=== PATIENT | male | born 1940 | race Caucasian/White ===

== ENCOUNTER 2016-08-29 09:46 | Outpatient (CLI) | payer MEDICARE, OTHER ==
[2016-08-29 18:58] LABS: EOSINOPHILS # (AUTO) 0.3 10^3/uL (0.0-0.7); EOSINOPHILS % (AUTO) 6.2 %; HGB - HEMOGLOBIN 13.4 g/dL (14.0-18.0); LYMPHOCYTES # (AUTO) 0.9 10^3/uL (1.5-3.5); MEAN CORPUSCULAR HEMOGLOBIN 33.1 pg (27.0-31.0); MEAN CORPUSCULAR HGB CONC 32.8 g/dL (32.0-36.0); MEAN CORPUSCULAR VOLUME 100.9 fL (80.0-94.0); MEAN PLATELET VOLUME 7.8 fL (7.4-11.4); MONOCYTES # (AUTO) 0.4 10^3/uL (0.0-1.0); MONOCYTES % (AUTO) 8.5 %; NEUTROPHILS # (AUTO) 2.9 10^3/uL (1.5-6.6); NEUTROPHILS % (AUTO) 64.3 %; NUCLEATED RED BLOOD CELLS AUTO 0.1 /100WBC; RED BLOOD COUNT 4.06 10^6/uL (4.70-6.10); RED CELL DISTRIBUTION WIDTH 14.4 % (12.0-15.0); UNCORRECTED WHITE BLOOD COUNT 4.6 x10^3/uL; WHITE BLOOD COUNT 4.6 x10^3/uL (4.8-10.8)
[2016-08-29 19:39] LABS: BILIRUBIN,TOTAL 0.7 mg/dL (0.2-1.0); BUN - BLOOD UREA NITROGEN 14 mg/dL (6-20); CALCIUM 9.6 mg/dL (8.5-10.3); CARBON DIOXIDE - CO2 30 mmol/L (21-32); CHLORIDE 95 mmol/L (101-111); CHOL/HDL RATIO 2.3 (<5.0); CHOLESTEROL 198 mg/dL; GFR - MDRD 73 (>89); GLUCOSE 88 mg/dL (70-100); HDL CHOLESTEROL 85 mg/dL; LDL/HDL RATIO 1.2 (<3.6); POTASSIUM 5.1 mmol/L (3.5-5.0); SODIUM 133 mmol/L (135-145); TOTAL PROTEIN 6.2 g/dL (6.7-8.2); TRIGLYCERIDES 58 mg/dL; VLDL CHOLESTEROL 12 mg/dL
== END 2016-08-29 09:47 | disposition home or self-care (01) ==
LOC: LAB.F 09:46
PROVIDERS: ATTEND Physician Assistant Medical
DX: K21.9 Gastro-esophageal reflux disease without esophagitis (principal); D50.9 Iron deficiency anemia, unspecified; N28.9 Disorder of kidney and ureter, unspecified; E78.5 Hyperlipidemia, unspecified; I10 Essential (primary) hypertension; N40.0 Benign prostatic hyperplasia without lower urinary tract symptoms
CPT/HCPCS: 36415; 80053; 80061; 84443; 85025

== ENCOUNTER 2016-09-01 13:05 | Outpatient (CLI) | payer MEDICARE, OTHER | END 2016-09-01 13:06 | disposition home or self-care (01) | DX: E87.5 Hyperkalemia (principal); E03.9 Hypothyroidism, unspecified; E87.1 Hypo-osmolality and hyponatremia ==

== ENCOUNTER 2016-10-04 10:30 | Outpatient (CLI) | payer MEDICARE, OTHER | END 2016-10-04 10:31 | disposition home or self-care (01) | DX: E03.9 Hypothyroidism, unspecified (principal) ==

== ENCOUNTER 2016-12-05 10:01 | Outpatient (CLI) | payer MEDICARE, OTHER | END 2016-12-05 10:02 | disposition home or self-care (01) | DX: E87.1 Hypo-osmolality and hyponatremia (principal); D64.9 Anemia, unspecified ==

== ENCOUNTER 2017-02-07 10:50 | Outpatient (CLI) | payer MEDICARE, OTHER ==
[2017-02-07 19:01] LABS: BASOPHILS # (AUTO) 0.1 10^3/uL (0.0-0.1); BASOPHILS % (AUTO) 0.6 %; EOSINOPHILS # (AUTO) 0.3 10^3/uL (0.0-0.7); HCT - HEMATOCRIT 41.2 % (42.0-52.0); HGB - HEMOGLOBIN 13.2 g/dL (14.0-18.0); LYMPHOCYTES # (AUTO) 0.9 10^3/uL (1.5-3.5); LYMPHOCYTES % (AUTO) 10.1 %; MEAN CORPUSCULAR HEMOGLOBIN 32.3 pg (27.0-31.0); MEAN CORPUSCULAR HGB CONC 32.1 g/dL (32.0-36.0); MEAN CORPUSCULAR VOLUME 100.6 fL (80.0-94.0); MEAN PLATELET VOLUME 7.9 fL (7.4-11.4); MONOCYTES # (AUTO) 0.9 10^3/uL (0.0-1.0); MONOCYTES % (AUTO) 9.8 %; NEUTROPHILS # (AUTO) 6.8 10^3/uL (1.5-6.6); NEUTROPHILS % (AUTO) 76.5 %; RED BLOOD COUNT 4.09 10^6/uL (4.70-6.10); UNCORRECTED WHITE BLOOD COUNT 8.9 x10^3/uL; WHITE BLOOD COUNT 8.9 x10^3/uL (4.8-10.8)
[2017-02-07 19:16] LABS: CALCIUM 9.2 mg/dL (8.5-10.3); POTASSIUM 4.1 mmol/L (3.5-5.0)
== END 2017-02-07 10:51 | disposition home or self-care (01) ==
LOC: LAB.F 10:50
PROVIDERS: ATTEND Internal Medicine
DX: E87.1 Hypo-osmolality and hyponatremia (principal); D64.9 Anemia, unspecified
CPT/HCPCS: 36415; 80048; 85025

== ENCOUNTER 2017-04-07 13:28 | Emergency (ER) | payer MEDICARE, OTHER ==
[2017-04-07 13:54] VITALS: BP 147/71
--- NOTE | 2017-04-07 15:55 | ED Physician Documentation ---
History of Present Illness - Stated complaint Stated Complaint: LT EAR PX/SWOLLEN - Chief complaint Chief Complaint: Heent - Additonal information Additional information: hx from pt 77 male L ear canal swelling for several days no fever some nasal congestion for which he is taking flonase Review of Systems Constitutional: denies: Fever Ears: reports: Ear pain Nose: reports: Congestion PD PAST MEDICAL HISTORY - Past Medical History Past Medical History: Yes Cardiovascular: Hypertension, High cholesterol Respiratory: Sleep apnea Endocrine/Autoimmune: HyPOthyroidism GI: GERD : Benign prostate hypertrophy HEENT: Chronic hearing loss Psych: None Musculoskeletal: Osteoarthritis Derm: None - Past Surgical History Past Surgical History: Yes General: Colonoscopy Ortho: Rotator cuff repair - Present Medications Home Medications: Ambulatory Orders Medication Instructions Recorded Confirmed Levothyroxine [Synthroid] 2 tab PO QDAC 01/24/13 04/07/17 Tamsulosin [Flomax] 1 tab PO DAILY 01/24/13 04/07/17 Aspirin Chewable [St Jayesh 175 mcg ORAL DAILY 05/28/13 04/07/17 Aspirin] Acetaminophen [Tylenol] 3 tab PO DAILY PM 04/07/17 04/07/17 Atorvastatin Calcium 20 mg PO DAILY 04/07/17 04/07/17 Fluticasone Propionate [Flovent 1 spray NS DAILY 04/07/17 04/07/17 Diskus] Neomycin/Polymyx/Hc Otic Drops 4 drops OT Q6H #1 bottle 04/07/17 [Cortisporin Ear Susp] raNITIdine [Zantac] 150 mg PO DAILY 04/07/17 04/07/17 - Allergies Allergies/Adverse Reactions: Allergies Allergy/AdvReac Type Severity Reaction Status Date / Time No Known Drug Allergies Allergy Verified 04/07/17 14:58 - Social History Does the pt smoke?: No Smoking Status: Never smoker Does the pt drink ETOH?: No Does the pt have substance abuse?: No - Immunizations Immunizations are current?: Yes - POLST Patient has POLST: No PD ED PE NORMAL - Vitals Vital signs reviewed: Yes - HEENT HEENT: Other (nasal congestion). No: Ears normal (L AOE, visible portion of TM is padilla and quiet, no mastoid TTP) - Cardiac Cardiac: RRR - Respiratory Respiratory: No respiratory distress, Clear bilaterally Results - Vitals Vitals: Vital Signs - 24 hr 04/07/17 13:51 Temperature 36.6 C Heart Rate 65 Respiratory 16 Rate Blood Pressure 147/71 H O2 Saturation 99 Oxygen O2 Source Room air Departure - Departure Disposition: 01 Home, Self Care Clinical Impression: Otitis externa Qualifiers: Otitis externa type: unspecified type Chronicity: acute Laterality: left Qualified Code(s): H60.502 - Unspecified acute noninfective otitis externa, left ear Condition: Good Instructions: ED Otitis Externa Follow-Up: Mamadou Arias MD [Primary Care Provider] - Prescriptions: Neomycin/Polymyx/Hc Otic Drops [Cortisporin Ear Susp] 4 drops OT Q6H #1 bottle Comments: Please follow up with your PMD for a recheck next week. Please have your blood pressure rechecked at that time too - it was high today
== END 2017-04-07 15:55 | disposition home or self-care (01) ==
LOC: ED 13:28
DX: H60.392 Other infective otitis externa, left ear (principal); I10 Essential (primary) hypertension; E78.00 Pure hypercholesterolemia, unspecified; G47.30 Sleep apnea, unspecified; E03.9 Hypothyroidism, unspecified; K21.9 Gastro-esophageal reflux disease without esophagitis; N40.0 Benign prostatic hyperplasia without lower urinary tract symptoms; M19.90 Unspecified osteoarthritis, unspecified site; Z79.82 Long term (current) use of aspirin
CPT/HCPCS: 99283

== ENCOUNTER 2017-04-11 10:35 | Outpatient (CLI) | payer MEDICARE, OTHER ==
[2017-04-11 18:28] LABS: BASOPHILS # (AUTO) 0.1 10^3/uL (0.0-0.1); BASOPHILS % (AUTO) 1.3 %; EOSINOPHILS # (AUTO) 0.2 10^3/uL (0.0-0.7); EOSINOPHILS % (AUTO) 4.2 %; HCT - HEMATOCRIT 42.8 % (42.0-52.0); LYMPHOCYTES # (AUTO) 0.7 10^3/uL (1.5-3.5); LYMPHOCYTES % (AUTO) 15.9 %; MEAN CORPUSCULAR HEMOGLOBIN 32.5 pg (27.0-31.0); MEAN CORPUSCULAR HGB CONC 32.7 g/dL (32.0-36.0); MEAN CORPUSCULAR VOLUME 99.3 fL (80.0-94.0); MEAN PLATELET VOLUME 7.9 fL (7.4-11.4); MONOCYTES # (AUTO) 0.4 10^3/uL (0.0-1.0); MONOCYTES % (AUTO) 9.5 %; NEUTROPHILS # (AUTO) 3.3 10^3/uL (1.5-6.6); NEUTROPHILS % (AUTO) 69.1 %; RED BLOOD COUNT 4.31 10^6/uL (4.70-6.10); RED CELL DISTRIBUTION WIDTH 13.9 % (12.0-15.0); UNCORRECTED WHITE BLOOD COUNT 4.7 x10^3/uL; WHITE BLOOD COUNT 4.7 x10^3/uL (4.8-10.8)
[2017-04-11 18:40] LABS: CALCIUM 9.2 mg/dL (8.5-10.3); CREATININE 1.1 mg/dL (0.6-1.2); POTASSIUM 4.1 mmol/L (3.5-5.0)
== END 2017-04-11 10:36 | disposition home or self-care (01) ==
LOC: LAB.F 10:35
PROVIDERS: ATTEND Internal Medicine
DX: E87.1 Hypo-osmolality and hyponatremia (principal); E87.5 Hyperkalemia; D64.9 Anemia, unspecified
CPT/HCPCS: 36415; 80048; 85025

== ENCOUNTER 2017-06-07 12:44 | Outpatient (CLI) | payer MEDICARE, OTHER ==
[2017-06-07 17:30] LABS: BASOPHILS # (AUTO) 0.1 10^3/uL (0.0-0.1); BASOPHILS % (AUTO) 0.9 %; EOSINOPHILS # (AUTO) 0.3 10^3/uL (0.0-0.7); EOSINOPHILS % (AUTO) 4.7 %; HCT - HEMATOCRIT 41.7 % (42.0-52.0); HGB - HEMOGLOBIN 13.6 g/dL (14.0-18.0); LYMPHOCYTES # (AUTO) 1.1 10^3/uL (1.5-3.5); LYMPHOCYTES % (AUTO) 16.6 %; MEAN CORPUSCULAR HEMOGLOBIN 32.2 pg (27.0-31.0); MEAN CORPUSCULAR HGB CONC 32.6 g/dL (32.0-36.0); MEAN CORPUSCULAR VOLUME 98.6 fL (80.0-94.0); MEAN PLATELET VOLUME 7.6 fL (7.4-11.4); MONOCYTES # (AUTO) 0.6 10^3/uL (0.0-1.0); MONOCYTES % (AUTO) 8.7 %; NEUTROPHILS # (AUTO) 4.8 10^3/uL (1.5-6.6); NEUTROPHILS % (AUTO) 69.1 %; RED BLOOD COUNT 4.23 10^6/uL (4.70-6.10); RED CELL DISTRIBUTION WIDTH 13.9 % (12.0-15.0); UNCORRECTED WHITE BLOOD COUNT 6.9 x10^3/uL; WHITE BLOOD COUNT 6.9 x10^3/uL (4.8-10.8)
[2017-06-07 18:04] LABS: ALBUMIN/GLOBULIN RATIO 1.5 (1.0-2.2); BILIRUBIN,TOTAL 0.6 mg/dL (0.2-1.0); CALCIUM 9.2 mg/dL (8.5-10.3); CREATININE 0.9 mg/dL (0.6-1.2); POTASSIUM 4.4 mmol/L (3.5-5.0); TOTAL PROTEIN 6.7 g/dL (6.7-8.2)
== END 2017-06-07 12:45 | disposition home or self-care (01) ==
LOC: LAB.F 12:44
PROVIDERS: ATTEND Physician Assistant Medical
DX: E87.1 Hypo-osmolality and hyponatremia (principal); D64.9 Anemia, unspecified
CPT/HCPCS: 36415; 80053; 85025

== ENCOUNTER 2017-06-26 12:15 | Outpatient (CLI) | payer MEDICARE, OTHER ==
[2017-06-26 19:52] LABS: IRON 53 ug/dL (45-182); TOTAL IRON BINDING CAPACITY 298 ug/dL (250-450); TRANSFERRIN 213 mg/dL (180-329)
[2017-06-29 08:07] LABS: TEST RESULT REPORT
== END 2017-06-26 12:16 | disposition home or self-care (01) ==
LOC: LAB.F 12:15
PROVIDERS: ATTEND Physician Assistant Medical
DX: D64.9 Anemia, unspecified (principal)
CPT/HCPCS: 36415; 81599; 82607; 82728; 82746; 83021; 83540; 84466; 85014; 85018

== ENCOUNTER 2017-09-12 10:35 | Outpatient (CLI) | payer MEDICARE, OTHER ==
[2017-09-12 18:00] LABS: ALBUMIN 4.1 g/dL (3.2-5.5); ALBUMIN/GLOBULIN RATIO 1.6 (1.0-2.2); ALKALINE PHOSPHATASE 86 IU/L (42-121); ALT ALANINE AMINOTRANSFERASE 26 IU/L (10-60); AST ASPARTATE AMINOTRANSFERASE 23 IU/L (10-42); BILIRUBIN,TOTAL 0.9 mg/dL (0.2-1.0); BUN - BLOOD UREA NITROGEN 10 mg/dL (6-20); CALCIUM 9.2 mg/dL (8.5-10.3); CARBON DIOXIDE - CO2 29 mmol/L (21-32); CHLORIDE 97 mmol/L (101-111); CHOL/HDL RATIO 2.1 (<5.0); CHOLESTEROL 175 mg/dL; CREATININE 0.9 mg/dL (0.6-1.2); GFR - MDRD 82 (>89); GLUCOSE 89 mg/dL (70-100); HDL CHOLESTEROL 83 mg/dL; LDL CHOLESTEROL,CALCULATED 79 mg/dL; SODIUM 134 mmol/L (135-145); TOTAL PROTEIN 6.6 g/dL (6.7-8.2); VLDL CHOLESTEROL 13 mg/dL
[2017-09-12 18:08] LABS: THYROID STIMULATING HORMONE 0.16 uIU/mL (0.34-5.60)
[2017-09-12 18:33] LABS: BASOPHILS % (AUTO) 0.9 %; EOSINOPHILS # (AUTO) 0.1 10^3/uL (0.0-0.7); EOSINOPHILS % (AUTO) 1.6 %; HGB - HEMOGLOBIN 14.5 g/dL (14.0-18.0); LYMPHOCYTES # (AUTO) 0.9 10^3/uL (1.5-3.5); LYMPHOCYTES % (AUTO) 20.8 %; MEAN CORPUSCULAR HEMOGLOBIN 31.3 pg (27.0-31.0); MEAN CORPUSCULAR HGB CONC 32.3 g/dL (32.0-36.0); MEAN CORPUSCULAR VOLUME 97.2 fL (80.0-94.0); MEAN PLATELET VOLUME 7.6 fL (7.4-11.4); MONOCYTES # (AUTO) 0.4 10^3/uL (0.0-1.0); MONOCYTES % (AUTO) 9.2 %; NEUTROPHILS # (AUTO) 2.8 10^3/uL (1.5-6.6); NEUTROPHILS % (AUTO) 67.5 %; PLT - PLATELET COUNT 187 10^3/uL (130-450); RED BLOOD COUNT 4.63 10^6/uL (4.70-6.10); RED CELL DISTRIBUTION WIDTH 14.9 % (12.0-15.0); WHITE BLOOD COUNT 4.2 x10^3/uL (4.8-10.8)
[2017-09-12 19:15] LABS: FREE T4 (FREE THYROXINE) 1.88 ng/dL (0.58-1.64)
== END 2017-09-12 10:36 | disposition home or self-care (01) ==
LOC: LAB.F 10:35
PROVIDERS: ATTEND Family Medicine
DX: E87.1 Hypo-osmolality and hyponatremia (principal); E78.00 Pure hypercholesterolemia, unspecified; D64.9 Anemia, unspecified; E03.9 Hypothyroidism, unspecified; N40.0 Benign prostatic hyperplasia without lower urinary tract symptoms
CPT/HCPCS: 36415; 80053; 80061; 84439; 84443; 85025; G0103; 83721; 84153

== ENCOUNTER 2017-12-14 08:00 | Outpatient (CLI) | payer MEDICARE, OTHER | END 2017-12-14 08:01 | disposition home or self-care (01) | LOC: LAB.F 08:00 | PROVIDERS: ATTEND Family Medicine | DX: E03.9 Hypothyroidism, unspecified (principal) | CPT/HCPCS: 36415; 84443 ==

== ENCOUNTER 2018-01-02 10:56 | Outpatient (CLI) | payer MEDICARE, OTHER ==
--- NOTE | 2018-01-02 12:46 | XRAY Report ---
Procedure Date: 01/02/2018 Accession Number: [id number] / [id number] Procedure: XRS - Shoulder 3 View RT CPT Code: FULL RESULT: EXAM: Shoulder 2 View RT DATE: 01/02/2018 11:05 AM CLINICAL HISTORY: PAIN IN RIGHT SHOULDER COMPARISON: 02/10/2009 plain films TECHNIQUE: 2 views. FINDINGS: Bones: No acute fracture or bone lesion. Joints: There is superior subluxation of the humeral head with respect to the glenoid. There is degenerative change of the humeral head with sclerosis, deformity, and spurring. There is also mild degenerative change of the acromioclavicular articulation. Soft tissues: The included hemithorax is unremarkable. No soft tissue calcification. IMPRESSION: Moderate degenerative change right shoulder without superimposed acute findings.. RADIA
== END 2018-01-02 10:57 | disposition home or self-care (01) ==
LOC: DI.S 10:56
PROVIDERS: ATTEND Internal Medicine
DX: M19.011 Primary osteoarthritis, right shoulder (principal)

== ENCOUNTER 2018-04-17 09:50 | Outpatient (CLI) | payer MEDICARE, OTHER ==
[2018-04-17 18:59] LABS: ALBUMIN 3.8 g/dL (3.2-5.5); ALBUMIN/GLOBULIN RATIO 1.6 (1.0-2.2); ALKALINE PHOSPHATASE 43 IU/L (42-121); ALT ALANINE AMINOTRANSFERASE 13 IU/L (10-60); AST ASPARTATE AMINOTRANSFERASE 17 IU/L (10-42); BILIRUBIN,TOTAL 0.5 mg/dL (0.2-1.0); BUN - BLOOD UREA NITROGEN 12 mg/dL (6-20); CALCIUM 9.3 mg/dL (8.5-10.3); CARBON DIOXIDE - CO2 30 mmol/L (21-32); CHLORIDE 98 mmol/L (101-111); CHOL/HDL RATIO 2.4 (<5.0); CHOLESTEROL 195 mg/dL; CREATININE 0.7 mg/dL (0.6-1.2); GFR - MDRD 109 (>89); GLUCOSE 95 mg/dL (70-100); HDL CHOLESTEROL 81 mg/dL; LDL CHOLESTEROL,CALCULATED 98 mg/dL; LDL/HDL RATIO 1.2 (<3.6); SODIUM 136 mmol/L (135-145); TOTAL PROTEIN 6.2 g/dL (6.7-8.2); VLDL CHOLESTEROL 16 mg/dL
== END 2018-04-17 09:51 | disposition home or self-care (01) ==
LOC: LAB.F 09:50
PROVIDERS: ATTEND Internal Medicine
DX: E78.00 Pure hypercholesterolemia, unspecified (principal); E03.9 Hypothyroidism, unspecified
CPT/HCPCS: 36415; 80053; 80061; 83721; 84443

== ENCOUNTER 2019-02-12 10:02 | Outpatient (CLI) | payer MEDICARE, OTHER ==
[2019-02-12 17:43] LABS: ALBUMIN 3.2 g/dL (3.2-5.5); ALBUMIN/GLOBULIN RATIO 1.1 (1.0-2.2); ALKALINE PHOSPHATASE 71 IU/L (42-121); ALT ALANINE AMINOTRANSFERASE 12 IU/L (10-60); AST ASPARTATE AMINOTRANSFERASE 14 IU/L (10-42); BILIRUBIN,TOTAL 0.5 mg/dL (0.2-1.0); BUN - BLOOD UREA NITROGEN 14 mg/dL (6-20); CALCIUM 8.8 mg/dL (8.5-10.3); CARBON DIOXIDE - CO2 26 mmol/L (21-32); CHLORIDE 99 mmol/L (101-111); CHOLESTEROL 163 mg/dL; GFR - MDRD 72 (>89); GLUCOSE 95 mg/dL (70-100); HDL CHOLESTEROL 80 mg/dL; LDL CHOLESTEROL,CALCULATED 72 mg/dL; LDL/HDL RATIO 0.9 (<3.6); SODIUM 135 mmol/L (135-145); TOTAL PROTEIN 6.2 g/dL (6.7-8.2); VLDL CHOLESTEROL 11 mg/dL
== END 2019-02-12 10:03 | disposition home or self-care (01) ==
LOC: LAB.S 10:02
PROVIDERS: ATTEND Internal Medicine
DX: E78.00 Pure hypercholesterolemia, unspecified (principal); E03.9 Hypothyroidism, unspecified
CPT/HCPCS: 36415; 80053; 80061; 83721; 84443

== ENCOUNTER 2019-03-20 11:11 | Observation (INO) | payer MEDICARE, OTHER ==
[2019-03-20 11:53] LABS: BASOPHILS % (AUTO) 0.3 %; EOSINOPHILS # (AUTO) 0.1 10^3/uL (0.0-0.7); EOSINOPHILS % (AUTO) 0.6 %; LYMPHOCYTES % (AUTO) 8.4 %; MEAN CORPUSCULAR HEMOGLOBIN 22.7 pg (27.0-31.0); MEAN CORPUSCULAR HGB CONC 25.8 g/dL (32.0-36.0); MEAN CORPUSCULAR VOLUME 87.8 fL (80.0-94.0); MEAN PLATELET VOLUME 9.5 fL (7.4-11.4); MONOCYTES # (AUTO) 0.8 10^3/uL (0.0-1.0); MONOCYTES % (AUTO) 6.5 %; NEUTROPHILS # (AUTO) 9.6 10^3/uL (1.5-6.6); PLT - PLATELET COUNT 516 10^3/uL (130-450); RED BLOOD COUNT 1.72 10^6/uL (4.70-6.10); RED CELL DISTRIBUTION WIDTH 17.4 % (12.0-15.0); WHITE BLOOD COUNT 11.5 x10^3/uL (4.8-10.8)
[2019-03-20 11:57] LABS: HGB - HEMOGLOBIN 3.9 g/dL (14.0-18.0)
[2019-03-20] MEDS ORDERED: PANTOPRAZOLE 40 MG VIAL IVP STA (11:59)
[2019-03-20 12:01] LABS: ALBUMIN/GLOBULIN RATIO 0.8 (1.0-2.2); BILIRUBIN,TOTAL 0.4 mg/dL (0.2-1.0); CALCIUM 8.9 mg/dL (8.5-10.3); CREATININE 0.9 mg/dL (0.6-1.2); TOTAL PROTEIN 6.6 g/dL (6.7-8.2)
--- NOTE | 2019-03-20 12:33 | ED Physician Documentation ---
History of Present Illness - Stated complaint Stated Complaint: FATIGUE/DIZZY/ABD PX - Chief complaint Chief Complaint: Abd Pain - Additonal information Additional information: This is a 79-year-old male who presents with weakness and dark stool. Patient states that he has had darker and looser stool over the past several weeks. but over the last several days it has been very dark. He has been feeling quite fatigued for the last week, and his states that he has been "acting like a zombie" and slow to respond, and also appears very pale to her. Patient also has some pain in his central/epigastric abdomen which he states "feels like an ulcer", he was told in the past he may have an ulcer when he had a similar complaint. He denies ever having a GI bleed in the past. He denies any chest pain or shortness of breath, though he does become fatigued more easily. He denies anticoagulant use. Review of Systems Constitutional: denies: Fever Cardiac: denies: Chest pain / pressure Respiratory: denies: Dyspnea GI: reports: Abdominal Pain. denies: Vomiting : denies: Dysuria Skin: denies: Rash Neurologic: reports: Generalized weakness Immunocompromised: denies: Immunocompromised PD PAST MEDICAL HISTORY - Past Medical History Cardiovascular: Hypertension, High cholesterol Respiratory: Sleep apnea Endocrine/Autoimmune: HyPOthyroidism GI: GERD : Benign prostate hypertrophy HEENT: Chronic hearing loss Psych: None Musculoskeletal: Osteoarthritis Derm: None - Past Surgical History Past Surgical History: Yes General: Colonoscopy Ortho: Rotator cuff repair - Present Medications Home Medications: Ambulatory Orders Medication Instructions Recorded Confirmed Tamsulosin [Flomax] 0.4 mg PO DAILY 01/24/13 04/07/17 Aspirin Chewable [St Jayesh 81 mg ORAL DAILY 05/28/13 04/07/17 Aspirin] Atorvastatin Calcium 20 mg PO DAILY 04/07/17 04/07/17 Fluticasone Propionate [Flovent 1 spray NS BID 04/07/17 04/07/17 Diskus] raNITIdine [Zantac] 150 mg PO BID 04/07/17 04/07/17 Levothyroxine Sodium 175 mcg PO DAILY 03/20/19 Meloxicam 15 mg PO DAILY 03/20/19 Multivitamin [Multiple Vitamins] 1 each PO DAILY 03/20/19 Omeprazole 20 mg PO DAILY 03/20/19 - Allergies Allergies/Adverse Reactions: Allergies Allergy/AdvReac Type Severity Reaction Status Date / Time No Known Drug Allergies Allergy Verified 03/20/19 11:26 - Social History Does the pt smoke?: No Smoking Status: Never smoker Does the pt drink ETOH?: No Does the pt have substance abuse?: No - Immunizations Immunizations are current?: Yes - POLST Patient has POLST: No PD ED PE NORMAL - Vitals Vital signs reviewed: Yes - General General: Alert and oriented X 3, No acute distress - HEENT HEENT: Other (Pale conjunctiva) - Neck Neck: Supple, no meningeal sign - Cardiac Cardiac: RRR, No murmur - Respiratory Respiratory: Clear bilaterally - Abdomen Abdomen: Other (Abdomen is nondistended, there is tenderness in the epigastrium/periumbilical region to palpation, and the right lower quadrant.) - Rectal Rectal: Other (Jil-anal area appears normal, the rectal vault has dark stool that is guaiac positive.) - Derm Derm: Warm and dry - Extremities Extremities: No deformity - Neuro Neuro: Alert and oriented X 3 - Psych Psych: Normal mood, Normal affect Results - Vitals Vitals: Vital Signs - 24 hr 03/20/19 03/20/19 03/20/19 11:21 13:35 14:28 Temperature 36.2 C L 36.8 C Heart Rate 71 66 68 Respiratory 16 20 20 Rate Blood Pressure 137/49 H 138/60 H 132/67 H O2 Saturation 100 99 99 03/20/19 03/20/19 14:31 14:44 Temperature 36.8 C 36.8 C Heart Rate 67 75 Respiratory 17 20 Rate Blood Pressure 133/60 H 142/65 H O2 Saturation 99 Oxygen O2 Source Room air - Labs Labs: Laboratory Tests 03/20/19 03/20/19 03/20/19 11:42 11:42 11:42 WBC 11.5 H RBC 1.72 L Hgb 3.9 L* Hct 15.1 L* MCV 87.8 MCH 22.7 L MCHC 25.8 L RDW 17.4 H Plt Count 516 H MPV 9.5 Neut # (Auto) 9.6 H Lymph # (Auto) 1.0 L Cloud # (Auto) 0.8 Eos # (Auto) 0.1 Baso # (Auto) 0.0 Absolute Nucleated RBC 0.03 Nucleated RBC % 0.3 PT INR APTT Sodium 141 Potassium 4.1 Chloride 107 Carbon Dioxide 24 Anion Gap 10.0 BUN 26 H Creatinine 0.9 Estimated GFR (MDRD) 81 L Glucose 113 H Calcium 8.9 Total Bilirubin 0.4 AST 19 ALT 21 Alkaline Phosphatase 66 Total Protein 6.6 L Albumin 3.0 L Globulin 3.6 Albumin/Globulin Ratio 0.8 L Lipase 27 Blood Type Blood Type Recheck A POSITIVE Antibody Screen Crossmatch IS Only 03/20/19 03/20/19 11:42 12:10 WBC RBC Hgb Hct MCV MCH MCHC RDW Plt Count MPV Neut # (Auto) Lymph # (Auto) Cloud # (Auto) Eos # (Auto) Baso # (Auto) Absolute Nucleated RBC Nucleated RBC % PT 13.3 H INR 1.2 APTT 32.0 Sodium Potassium Chloride Carbon Dioxide Anion Gap BUN Creatinine Estimated GFR (MDRD) Glucose Calcium Total Bilirubin AST ALT Alkaline Phosphatase Total Protein Albumin Globulin Albumin/Globulin Ratio Lipase Blood Type A POSITIVE Blood Type Recheck Antibody Screen NEGATIVE Crossmatch IS Only See Detail - Rads (name of study) CT abd/pelvis W Radiology: Other (Multiple incidental findings without acute abnormality in the abd/pelvis to explain patient's abdominal pain or bleeding.) PD MEDICAL DECISION MAKING - ED course Complexity details: considered differential (GI bleed, mass, ulcer, diverticulosis, anemia, electrolyte abnormality, UTI) ED course: Pt is hemodynamically stable on arrival, labs drawn in triage notable for hemoglobin of 3.9, and a mild thrombocytosis which is likely 2/2 his anemia. 2 IVs were placed and patient placed on the ekg monitor. Type and screen performed and 3 units of RBCs transfused. Pantoprazole given. He does have guaiac positive stool. He does have mild abdominal tenderness so CT performed which is negative for obvious explanation of his pain or for large intestinal mass. At this time patient appears to have severe anemia which is likely subacute or acute on chronic given that he appears well compensated and has a reactive thrombocytosis. I am most concerned for an Upper GI source given his abdominal discomfort and lack of urvashi blood in his stool. No signs of signficant coagulopathy on his labs. I spoke with Dr. Remy of surgery who plans to likely perform endoscopy tomorrow. PT was addmitted to Dr. Remy. After 2 units of blood he was feeling much improved and looked less pale. Vital signs remain stable at the time of admission, repeat CBC pending. Departure - Departure Disposition: ED Place in Observation Clinical Impression: Anemia Qualifiers: Anemia type: unspecified type Qualified Code(s): D64.9 - Anemia, unspecified GI bleed Qualifiers: GI bleed type/associated pathology: unspecified gastrointestinal hemorrhage type Qualified Code(s): K92.2 - Gastrointestinal hemorrhage, unspecified Condition: Stable Discharge Date/Time: 03/20/19 18:48
[2019-03-20] MEDS ORDERED: SODIUM CHLORIDE 0.9% 1,000 ML IV ONE (12:39)
[2019-03-20] MEDS ORDERED: IOVERSOL 320 100 ML VIAL IVP ONE ×2 (13:47→16:07)
--- NOTE | 2019-03-20 14:46 | CT Report ---
Reason: Abdominal pain and GI bleed Procedure Date: 03/20/2019 Accession Number: [id number] / [id number] Procedure: CT - Abdomen/Pelvis W CPT Code: FULL RESULT: EXAM: CT ABDOMEN AND PELVIS EXAM DATE: 03/20/2019 01:54 PM. CLINICAL HISTORY: Abdominal pain and GI bleed. COMPARISONS: None. TECHNIQUE: Routine helical CT imaging was performed through the abdomen and pelvis. IV contrast: OPTI 320 100ML. Enteric contrast: No. Reconstructions: Coronal and sagittal. In accordance with CT protocol optimization, one or more of the following dose reduction techniques were utilized for this exam: automated exposure control, adjustment of mA and/or KV based on patient size, or use of iterative reconstructive technique. FINDINGS: Lung Bases: Hiatal hernia including a small amount of free fluid.. Small nodule right lung base 8 mm 09/30. Small lipoma abutting the right diaphragm Liver: Portal vein 1.8 cm, borderline enlarged. No masses. Gallbladder/Bile Ducts: Unremarkable. Spleen: Normal. Pancreas: Normal. Adrenal Glands: Normal. Kidneys: 1 cm left renal cyst.. No masses or hydronephrosis. Peritoneal Cavity/Bowel: No free fluid, free air or adenopathy. No masses or acute inflammatory process. The appendix is not definitely seen Pelvic Organs: Penile implant with reservoir in place left and anterior pelvis. The prostate is prominent in size with a volume of approximately 63 cc. The bladder base is elevated. Vasculature: No aneurysms. Vascular calcification present.. Bones: Multilevel degenerative change in the spine with wedge compression deformity L1, height loss approximately 50%. Lower lumbar levoscoliosis. Other: None. IMPRESSION: 1. Large hiatal hernia. 2. Right diaphragm lipoma. 3. 8 mm nodule right lung base abutting the diaphragm. Suggest follow-up chest CT in 6 months. 4. 1 cm left renal cyst. 5. Prominent portal vein 1.8 cm. 6. Penile implant. 7. Large prostate. 8. Multilevel degenerative change in the spine. 9. No acute findings in the abdomen or pelvis. RADIA
[2019-03-20] MEDS ORDERED: ONDANSETRON 4 MG/2 ML VIAL IVP PRN (15:38)
[2019-03-20] MEDS ORDERED: ZOLPIDEM 5 MG TABLET PO PRN (15:38)
[2019-03-20] MEDS ORDERED: oxyCODONE 5 MG TABLET PO PRN (15:38)
[2019-03-20] MEDS ORDERED: ACETAMINOPHEN 325 MG TABLET PO PRN (15:38)
[2019-03-20] MEDS ORDERED: fentaNYL 100 MCG/2 ML VIAL IVP ONE (15:39)
[2019-03-20 15:43] LABS: INR 1.2 (0.8-1.2); PT - PROTHROMBIN TIME 13.3 secs (9.9-12.6)
--- NOTE | 2019-03-20 15:56 | HISTORY & PHYSICAL EXAMINATION ---
Chief Complaint - Chief Complaint Chief Complaint: dizziness/fatigue and abdominal pain History of Present Illness - History of Present Illness HPI Comment/Other: Mr. Jacome is a 79-year-old male with a PMH significant for HTN, HLD, Sleep apnea, GERD, hypothyroidism, osteoarthritis, BPH, constipation, chronic hearing loss, who presents with weakness, dizziness and dark stool. pt report over the last several days his bowel movement showed very dark. Patient states that he has had darker and looser stool over the past several weeks. He has been feeling quite fatigued and lost energy for the last week. Pt's report pt appears very pale to her. He denies he ever had a GI bleed in the past. He report he had colonoscopy about 2-3 yrs ago which was unremarkable. He state he has never had EGD done before. He denies take NSAIDs, Motrin, Aspirin and alcohol drinking recently. He denies any chest pain, palpitation, abdominal pain, nausea, vomiting, headache or shortness of breath, though he report he became fatigued more easily. HGB test in today was 3.9, WBC was slight elevated to 11.5. Surgeon Dr. Remy was called. Pt is planned to have EGD on tomorrow noon. History - Past Medical History Cardiovascular: reports: Hypertension, High cholesterol Respiratory: reports: Sleep apnea Endocrine/Autoimmune: reports: HyPOthyroidism GI: reports: GERD : reports: Benign prostate hypertrophy HEENT: reports: Chronic hearing loss Psych: reports: None Musculoskeletal: reports: Osteoarthritis Derm: reports: None MRSA Hx?: No - Past Surgical History General: reports: Colonoscopy Ortho: reports: Rotator cuff repair - Family & Social History Family History: Mother: CAD, Father: Cancer Family History Comment/Other: pt report his father from advanced prostate cancer, his mother from heart attack. he had two children, healthy. Living arrangement: At home Living Situation: With spouse/s.o. Social History Notes: pt report he had been working at [employer] for thirty years. He denies cigarette smoking, alcohol and drug issue. - POLST Patient has POLST: No Meds/Allgy - Home Medications Home Medications: Ambulatory Orders Medication Instructions Recorded Confirmed Tamsulosin [Flomax] 0.4 mg PO DAILY 01/24/13 04/07/17 Aspirin Chewable [St Jayesh 81 mg ORAL DAILY 05/28/13 04/07/17 Aspirin] Atorvastatin Calcium 20 mg PO DAILY 04/07/17 04/07/17 Fluticasone Propionate [Flovent 1 spray NS BID 04/07/17 04/07/17 Diskus] raNITIdine [Zantac] 150 mg PO BID 04/07/17 04/07/17 Levothyroxine Sodium 175 mcg PO DAILY 03/20/19 Meloxicam 15 mg PO DAILY 03/20/19 Multivitamin [Multiple Vitamins] 1 each PO DAILY 03/20/19 Omeprazole 20 mg PO DAILY 03/20/19 - Allergies Allergies/Adverse Reactions: Allergies Allergy/AdvReac Type Severity Reaction Status Date / Time No Known Drug Allergies Allergy Verified 03/20/19 11:26 Review of Systems - Constitutional Constitutional: reports: Fatigue. denies: Fever, Chills, Malaise, Weakness, Poor appetite, Diaphoresis, Night sweats - Eyes Eyes: denies: Pain, Irritation, Amaurosis, Blurred vision, Spots in vision, Field loss, Vision loss, Dipolpia - Ears, Nose & Throat Ears, Nose & Throat: denies: Ear pain, Hearing loss, Hearing aids, Tinnitus, Vertigo, Nasal pain, Nasal discharge, Nosebleeds, Nasal obstruction, Nasal congestion, Postnasal drainage, Dentures, Sore throat, Hoarseness, Mouth lesions, Bleeding gums - Cardiovascular Cariovascular: denies: Irregular heart rate, Palpitations, Chest pain, Edema, Lightheadedness, Syncope, Exertional dyspnea, Decr. exercise tolerance - Respiratory Respiratory: denies: Cough, Sputum production, Wheezing, Snoring, Hemoptysis, Orthopnea, SOB at rest, SOB with exertion, Apnea - Gastrointestinal Gastrointestinal: reports: Black stools. denies: Abdominal pain, Abdominal distention, Constipation, Diarrhea, Change in bowel habits, Rectal bleeding, Bloody stools, Nausea, Vomiting, Bile emesis, Juan blood emesis, Coffee grounds emesis, Reflux/heartburn, Bloating, Poor appetite - Genitourinary Genitourinary: denies: Dysuria, Frequency, Urgency, Hematuria, Incontinence, Flank pain, Nocturia, Urethral discharge - Musculoskeletal Musculoskeletal: denies: Muscle pain, Back pain, Muscle aches, Stiffness, Limited range of motion, Muscle weakness, Gout, Joint pain - Integumentary Integumentary: denies: Rash, Pruritis, Lesions, Dryness, Lumps, Acne, Pigment changes, Nail changes - Neurological Neurological: denies: General weakness, Focal weakness, Headache, Dizziness, Numbness, Memory problems, Pre-existing deficit, Abnormal gait, Seizures, Incoordination, Slurred speech - Psychiatric Psychiatric: denies: Depression, Anxiety, Suicidal, Delusions, Hallucinations, Homicidal - Endocrine Endocrine: denies: Polyuria, Polydypsia, Polyphagia, Intolerance to cold - Hematologic/Lymphatic Hematologic/Lymphatic: reports: Anemia. denies: Bruising, Petechiae, Blood clots, Lymphadenopathy, Bleeding tendencies Exam - Vital Signs Reviewed Vital Signs: Yes Vital Signs: Vital Signs x48h Temp Pulse Resp BP Pulse Ox 03/20/19 14:44 36.8 C 75 20 142/65 H 99 03/20/19 14:31 36.8 C 67 17 133/60 H 03/20/19 14:28 36.8 C 68 20 132/67 H 99 03/20/19 13:35 66 20 138/60 H 99 03/20/19 11:21 36.2 C L 71 16 137/49 H 100 - Physical Exam General Appearance: positive: No acute distress, Alert. negative: Lethargic Eyes Bilateral: positive: Normal inspection, PERRL, No lid inflammation, Conjunctivae nml ENT: positive: ENT inspection nml, Pharynx nml, No signs of dehydration. negative: Purulent nasal drainage, Pharyngeal erythema, Oral lesions Neck: positive: Nml inspection, Thyroid nml, No JVD, Trachea midline. negative: Thyromegaly, Lymphadenopathy (R), Lymphadenopathy (L), Stiff neck, Swelling/bruising, Tracheal deviation Respiratory: positive: Chest non-tender, No respiratory distress, Breath sounds nml. negative: Wheezes, Rales, Rhonchi Cardiovascular: positive: Regular rate & rhythm, No murmur, No gallop. negative: Irregularly irregular, Extrasystoles, Tachycardia, Bradycardia, JVD present, Systolic murmur, Diastolic murmur Peripheral Pulses: positive: 2+ Abdomen: positive: Non-tender, No organomegaly, Nml bowel sounds, No distention. negative: Tenderness, Guarding, Rebound Back: positive: Nml inspection. negative: CVA tenderness (R), CVA tenderness (L) Skin: positive: Color nml, No rash, Warm, Dry. negative: Cyanosis, Diaphoresis, Pallor Extremities: positive: Non-tender, Full ROM, Nml appearance. negative: Pedal edema, Calf tenderness, Joint swelling, [place]'s sign/cords Neurologic/Psychiatric: positive: Oriented x3, Motor nml, Sensation nml, Mood/affect nml. negative: Weakness, Sensory loss, Facial droop, Slurred/abnml speech, Depressed mood/affect Sepsis Event Note (H) - Evaluation Current Stage of Sepsis: Ruled out Conclusion/Plan - Problem List (1) Melena Conclusion/Plan: pt present melena for couple of days, HGB is 3.9. pt has likely upper GI bleed. pt report he has never had EGD. Surgeon was called and planed to have EGD on tomorrow morning. consult with GI surgeon, plan to have EGD on tomorrow NPO after midnight H&H to monitor pt's HGB and bleeding status blood transfusion. pt had three units of blood ordered by ER provider, will finish and check H&H start IV of Protonix (2) Anemia Conclusion/Plan: it is likely from acute blood lost. blood transfusion H&H continue to monitor (3) HTN (hypertension) Conclusion/Plan: stable now. will reconcile home meds after verified (4) HLD (hyperlipidemia) Conclusion/Plan: stable, will reconcile home meds (5) BPH (benign prostatic hyperplasia) Conclusion/Plan: will reconcile home flomax (6) Constipation Conclusion/Plan: pt report chronic constipation. nurse will initiate constipation protocol as needed (7) Sleep apnea Conclusion/Plan: stable, pt may use his home CPAP (8) Hypothyroidism Conclusion/Plan: check TSH, will reconcile home meds after verified by pharmacy (9) Osteoarthritis Conclusion/Plan: hold any NSAID for melena, pain control with Tylenol or other opiates as needed (10) Do not intubate, cardiopulmonary resuscitation (CPR)-only code status Conclusion/Plan: pt clearly request DNR - Lab Results Fish Bones: 03/21/19 01:10 03/20/19 11:42 Core Measures - Anticipated LOS I expect patient to be DC'd or transferred within 96 hours.: Yes - DVT/VTE - Prophylaxis VTE/DVT Device ordered at admit?: Yes VTE/DVT Prophylaxis med ordered at admit?: Yes
[2019-03-20 16:19] LABS: BILIRUBIN,URINE NEGATIVE (NEGATIVE); CLARITY,URINE CLEAR (CLEAR); GLUCOSE, URINE (UA) NEGATIVE (NEGATIVE); KETONES,URINE (UA) NEGATIVE (NEGATIVE); LEUKOCYTE ESTERASE, URINE NEGATIVE (NEGATIVE); NITRITE,URINE NEGATIVE (NEGATIVE); OCCULT BLOOD,URINE NEGATIVE (NEGATIVE); PH,URINE 5.5 PH (5.0-7.5); PROTEIN,URINE NEGATIVE (NEGATIVE); UROBILINOGEN,URINE 0.2 (NORMAL) E.U./dL (NORMAL)
[2019-03-20] MEDS: SODIUM CHLORIDE FLUSH 0.9% 10 ML SYRINGE IVP SCH (19:08)
[2019-03-20] MEDS ORDERED: ATORVASTATIN 40 MG TABLET PO SCH (21:00)
[2019-03-20] MEDS: SODIUM CHLORIDE FLUSH 0.9% 10 ML SYRINGE IVP PRN (22:49)
[2019-03-21] MEDS: SODIUM CHLORIDE FLUSH 0.9% 10 ML SYRINGE IVP SCH ×3 (00:39→16:36)
[2019-03-21 01:25] LABS: BASOPHILS % (AUTO) 0.5 %; EOSINOPHILS # (AUTO) 0.1 10^3/uL (0.0-0.7); EOSINOPHILS % (AUTO) 1.3 %; LYMPHOCYTES % (AUTO) 12.2 %; MEAN CORPUSCULAR HEMOGLOBIN 25.6 pg (27.0-31.0); MEAN CORPUSCULAR HGB CONC 29.9 g/dL (32.0-36.0); MEAN CORPUSCULAR VOLUME 85.6 fL (80.0-94.0); MEAN PLATELET VOLUME 9.5 fL (7.4-11.4); MONOCYTES # (AUTO) 0.6 10^3/uL (0.0-1.0); MONOCYTES % (AUTO) 7.5 %; NEUTROPHILS # (AUTO) 6.1 10^3/uL (1.5-6.6); NEUTROPHILS % (AUTO) 77.9 %; PLT - PLATELET COUNT 380 10^3/uL (130-450); RED BLOOD COUNT 2.15 10^6/uL (4.70-6.10); RED CELL DISTRIBUTION WIDTH 15.2 % (12.0-15.0); WHITE BLOOD COUNT 7.9 x10^3/uL (4.8-10.8)
[2019-03-21 01:32] LABS: HGB - HEMOGLOBIN 5.5 g/dL (14.0-18.0)
[2019-03-21] MEDS ORDERED: SODIUM CHLORIDE 0.9% 500 ML ONE ×2 (02:31→05:55)
[2019-03-21] MEDS: SODIUM CHLORIDE FLUSH 0.9% 10 ML SYRINGE IVP PRN ×3 (05:55→16:36)
[2019-03-21] MEDS ORDERED: TAMSULOSIN 0.4 MG CAPSULE PO SCH (09:00)
[2019-03-21] MEDS ORDERED: PANTOPRAZOLE 40 MG VIAL IVP SCH (09:00)
[2019-03-21] MEDS ORDERED: POLYETHYLENE GLYCOL 3350 17 GM PACKET PO SCH (09:00)
[2019-03-21 09:32] LABS: BASOPHILS # (AUTO) 0.1 10^3/uL (0.0-0.1); EOSINOPHILS # (AUTO) 0.1 10^3/uL (0.0-0.7); EOSINOPHILS % (AUTO) 1.7 %; HGB - HEMOGLOBIN 7.4 g/dL (14.0-18.0); LYMPHOCYTES # (AUTO) 0.9 10^3/uL (1.5-3.5); MEAN CORPUSCULAR HEMOGLOBIN 26.8 pg (27.0-31.0); MEAN CORPUSCULAR HGB CONC 31.1 g/dL (32.0-36.0); MEAN CORPUSCULAR VOLUME 86.2 fL (80.0-94.0); MEAN PLATELET VOLUME 9.5 fL (7.4-11.4); MONOCYTES # (AUTO) 0.5 10^3/uL (0.0-1.0); MONOCYTES % (AUTO) 7.2 %; NEUTROPHILS # (AUTO) 4.8 10^3/uL (1.5-6.6); NEUTROPHILS % (AUTO) 75.5 %; PLT - PLATELET COUNT 379 10^3/uL (130-450); RED BLOOD COUNT 2.76 10^6/uL (4.70-6.10); RED CELL DISTRIBUTION WIDTH 15.3 % (12.0-15.0); WHITE BLOOD COUNT 6.3 x10^3/uL (4.8-10.8)
[2019-03-21 09:41] LABS: CALCIUM 8.3 mg/dL (8.5-10.3); CREATININE 0.8 mg/dL (0.6-1.2); MAGNESIUM 2.3 mg/dL (1.7-2.8)
--- NOTE | 2019-03-21 10:59 | ANESTHESIA ---
Pre-Anesthesia VS, & Labs - Diagnosis GI Bleed - Procedure EGD Vital Signs: Temp Pulse Resp BP Pulse Ox 37.0 C 64 20 149/72 H 98 03/21/19 09:22 03/21/19 09:22 03/21/19 09:22 03/21/19 09:22 03/21/19 09:02 Height 5 ft 8 in Weight (kg) 80.5 kg Body Mass Index 26.9 - NPO >8 hours - Lab Results Current Lab Results: Laboratory Tests 03/21/19 09:23: Sodium 141, Potassium 4.1, Chloride 108, Carbon Dioxide 25, Anion Gap 8.0, BUN 19, Creatinine 0.8, Estimated GFR (MDRD) 93, Glucose 86, Calcium 8.3 L, Magnesium 2.3 03/21/19 09:23: TSH 9.82 H 03/21/19 09:23: WBC 6.3, RBC 2.76 L, Hgb 7.4 L, Hct 23.8 L, MCV 86.2, MCH 26.8 L , MCHC 31.1 L, RDW 15.3 H, Plt Count 379, MPV 9.5, Neut # (Auto) 4.8, Lymph # (Auto) 0.9 L, [place] # (Auto) 0.5, Eos # (Auto) 0.1, Baso # (Auto) 0.1, Absolute Nucleated RBC 0.03, Nucleated RBC % 0.5 03/21/19 01:10: WBC 7.9, RBC 2.15 L, Hgb 5.5 L*, Hct 18.4 L*, MCV 85.6, MCH 25.6 L, MCHC 29.9 L, RDW 15.2 H, Plt Count 380, MPV 9.5, Neut # (Auto) 6.1, Lymph # (Auto) 1.0 L, [place] # (Auto) 0.6, Eos # (Auto) 0.1, Baso # (Auto) 0.0, Absolute Nucleated RBC 0.04, Nucleated RBC % 0.5 03/20/19 12:10: Blood Type A POSITIVE, Antibody Screen NEGATIVE, Crossmatch IS Only See Detail 03/20/19 11:42: PT 13.3 H, INR 1.2, APTT 32.0 03/20/19 11:42: Blood Type Recheck A POSITIVE 03/20/19 11:42: Sodium 141, Potassium 4.1, Chloride 107, Carbon Dioxide 24, Anion Gap 10.0, BUN 26 H, Creatinine 0.9, Estimated GFR (MDRD) 81 L, Glucose 113 H, Calcium 8.9, Total Bilirubin 0.4, AST 19, ALT 21, Alkaline Phosphatase 66, Total Protein 6.6 L, Albumin 3.0 L, Globulin 3.6, Albumin/Globulin Ratio 0.8 L, Lipase 27 03/20/19 11:42: WBC 11.5 H, RBC 1.72 L, Hgb 3.9 L*, Hct 15.1 L*, MCV 87.8, MCH 22.7 L, MCHC 25.8 L, RDW 17.4 H, Plt Count 516 H, MPV 9.5, Neut # (Auto) 9.6 H, Lymph # (Auto) 1.0 L, [place] # (Auto) 0.8, Eos # (Auto) 0.1, Baso # (Auto) 0.0, Absolute Nucleated RBC 0.03, Nucleated RBC % 0.3 Fish Bones: 03/21/19 09:23 03/21/19 09:23 Home Medications and Allergies Home Medications: Ambulatory Orders Levothyroxine Sodium 175 mcg PO DAILY 03/20/19 Meloxicam 15 mg PO DAILY 03/20/19 Multivitamin [Multiple Vitamins] 1 each PO DAILY 03/20/19 Omeprazole 20 mg PO DAILY 03/20/19 Acetaminophen 325 - 650 mg PO Q6H PRN MDD 8 tabs / 24hrs 03/21/19 Melatonin 10 mg PO QPM PRN 03/21/19 Polyethylene Glycol 3350 [Miralax] 17 gm PO DAILY 03/21/19 Active Medications Acetaminophen (Tylenol) 650 mg PO Q4HR PRN PRN Reason: Pain 1 to 4 Atorvastatin Calcium (Lipitor) 20 mg PO QPM [facility] Last Admin: 03/20/19 20:09 Dose: 20 mg Ondansetron HCl (Zofran Inj) 4 mg IVP Q6HR PRN PRN Reason: Nausea / Vomiting Oxycodone HCl (Roxicodone) 5 mg PO Q4HR PRN PRN Reason: Pain 5 to 7 Pantoprazole Sodium (Protonix) 40 mg IVP BID [facility] Last Admin: 03/21/19 09:11 Dose: 40 mg Polyethylene Glycol (Miralax) 17 gm PO DAILY [facility] Last Admin: 03/21/19 09:11 Dose: Not Given Sodium Chloride (Normal Saline Flush 0.9%) 10 ml IVP PRN PRN PRN Reason: NEEDED PER PROVIDER ORDERS Last Admin: 03/21/19 06:36 Dose: 10 ml Sodium Chloride (Normal Saline Flush 0.9%) 10 ml IVP 0100,0900,1700 [facility] Last Admin: 03/21/19 09:10 Dose: 10 ml Tamsulosin HCl (Flomax) 0.4 mg PO DAILY [facility] Last Admin: 03/21/19 09:10 Dose: 0.4 mg Zolpidem Tartrate (Ambien) 5 mg PO QPM PRN PRN Reason: Insomnia Last Admin: 03/20/19 23:54 Dose: 5 mg Tamsulosin [Flomax] 0.4 mg PO DAILY 01/24/13 Aspirin Chewable [[facility] Jayesh Aspirin] 81 mg ORAL DAILY 05/28/13 Atorvastatin Calcium 20 mg PO DAILY 04/07/17 Fluticasone Propionate [Flovent Diskus] 1 spray NS BID 04/07/17 raNITIdine [Zantac] 150 mg PO BID 04/07/17 Levothyroxine Sodium 175 mcg PO DAILY 03/20/19 Meloxicam 15 mg PO DAILY 03/20/19 Multivitamin [Multiple Vitamins] 1 each PO DAILY 03/20/19 Omeprazole 20 mg PO DAILY 03/20/19 Acetaminophen 325 - 650 mg PO Q6H PRN MDD 8 tabs / 24hrs 03/21/19 Melatonin 10 mg PO QPM PRN 03/21/19 Polyethylene Glycol 3350 [Miralax] 17 gm PO DAILY 03/21/19 Allergies/Adverse Reactions: Allergies Allergy/AdvReac Type Severity Reaction Status Date / Time No Known Drug Allergies Allergy Verified 03/20/19 11:26 Anes History & Medical History - Anesthetic History Anesthesia Complications: reports: No previous complications - Medical History Cardiovascular: reports: Hypertension, High cholesterol Pulmonary: reports: Sleep apnea, CPAP use Gastrointestinal: reports: GERD Urinary: reports: Benign prostate hypertrophy Neuro: reports: None Musculoskeletal: reports: Osteoarthritis Endocrine/Autoimmune: reports: HyPOthyroidism Blood Disorders: reports: Anemia (Received 4 units of PRBC, Hgb improved to 7.4) Skin: reports: None Smoking Status: Never smoker Psychosocial: reports: No issues indicated - Surgical History General: Colonoscopy Urologic: Penile implant Orthopedic: Rotator cuff repair Exam General: Alert, Oriented x3, Cooperative, No acute distress Dental: WNL Mouth Openin Fingerbreadth Mallampati classification: II Thyromental Distance: 4-6 cm Respiratory: Lungs clear, Normal breath sounds, No respiratory distress, No accessory muscle use Cardiovascular: Regular rate Mental/Cognitive Status: Alert/Oriented X3, Normal for patient Plan Anesthesia Type: MAC Consent for Procedure(s) Verified and Reviewed: Yes Code Status: Attempt Resuscitation ASA classification: 3-Severe systemic disease Is this case an emergency?: No
[2019-03-21] MEDS ORDERED: MELATONIN 10 MG PO PRN (11:15)
[2019-03-21] MEDS ORDERED: LACTATED RINGERS 1,000 ML IV ONE (12:01)
[2019-03-21] MEDS ORDERED: LIDO GARGLE 30 ML BOTTLE PO ONE (12:05)
[2019-03-21] MEDS ORDERED: LIDO GARGLE 30 ML BOTTLE ONE (12:13)
[2019-03-21 12:22] LABS: HGB - HEMOGLOBIN 7.3 g/dL (14.0-18.0)
--- NOTE | 2019-03-21 12:56 | CONSULTATION NOTE ---
Referring Provider Name of Referring Provider:: Naren Harper Consult Date: 03/21/19 Chief Complaint - Chief Complaint Chief Complaint: Anemia History of Present Illness - Admitted From Admitted From:: Emergency Department - History Obtained From Records Reviewed: Providers Notes History obtained from: Patient and family Exam Limitations: None - History of Present Illness HPI Comment/Other: Juan David is a very pleasant 79 year old gentleman who presented to the ED after several days of dizziness and generalized malaise. He was found to be profoundly anemic. He has been admitted by the hospitalist service and has received several units of blood. He says he is still feeling a little dizzy but a little better than yesterday. He says he has been taking Meloxicam for body aches and pains. He admits he had a stomach ache over the last several weeks and thought h michael might have an ulcer. He has not seen any urvashi blood in his stool and says he was told in the ED that there was blood in it but he never saw any. He denies any change in his bowel habits. History - Past Medical History Cardiovascular: reports: Hypertension, High cholesterol Respiratory: reports: Sleep apnea, CPAP use Neuro: reports: None Endocrine/Autoimmune: reports: HyPOthyroidism GI: reports: GERD : reports: Benign prostate hypertrophy HEENT: reports: Chronic hearing loss Psych: reports: None Musculoskeletal: reports: Osteoarthritis Derm: reports: None MRSA Hx?: No - Past Surgical History General: reports: Colonoscopy Ortho: reports: Rotator cuff repair - Family & Social History Family History: Mother: CAD, Father: Cancer Family History Comment/Other: pt report his father from advanced prostate cancer, his mother from heart attack. he had two children, healthy. Living arrangement: At home Living Situation: With spouse/s.o. Social History Notes: pt report he had been working at [employer] for thirty years. He denies cigarette smoking, alcohol and drug issue. - POLST Patient has POLST: No Meds/Allgy - Home Medications Home Medications: Ambulatory Orders Medication Instructions Recorded Confirmed Tamsulosin [Flomax] 0.4 mg PO DAILY 01/24/13 03/21/19 Aspirin Chewable [St Jayesh 81 mg ORAL DAILY 05/28/13 03/21/19 Aspirin] Atorvastatin Calcium 20 mg PO DAILY 04/07/17 03/21/19 Fluticasone Propionate [Flovent 1 spray NS BID 04/07/17 03/21/19 Diskus] raNITIdine [Zantac] 150 mg PO BID 04/07/17 03/21/19 Levothyroxine Sodium 175 mcg PO DAILY 03/20/19 03/21/19 Meloxicam 15 mg PO DAILY 03/20/19 03/21/19 Multivitamin [Multiple Vitamins] 1 each PO DAILY 03/20/19 03/21/19 Omeprazole 20 mg PO DAILY 03/20/19 03/21/19 Acetaminophen 325 - 650 mg PO Q6H PRN MDD 8 tabs 03/21/19 03/21/19 / 24hrs Melatonin 10 mg PO QPM PRN 03/21/19 03/21/19 Polyethylene Glycol 3350 [Miralax] 17 gm PO DAILY 03/21/19 03/21/19 - Allergies Allergies/Adverse Reactions: Allergies Allergy/AdvReac Type Severity Reaction Status Date / Time No Known Drug Allergies Allergy Verified 03/20/19 11:26 Review of Systems - Constitutional Constitutional: reports: Fatigue, Weakness - Cardiovascular Cariovascular: reports: Lightheadedness, Exertional dyspnea - Gastrointestinal Gastrointestinal: reports: Reflux/heartburn. denies: Constipation, Diarrhea, Change in bowel habits, Black stools, Bloody stools, Nausea, Vomiting, Urvashi bl ood emesis, Coffee grounds emesis - Musculoskeletal Musculoskeletal: reports: Back pain, Muscle aches, Stiffness, Joint pain - Hematologic/Lymphatic Hematologic/Lymphatic: reports: Anemia - All Other Systems All Other Systems: reports: Reviewed and negative Exam - Vital Signs Reviewed Vital Signs: Yes Vital Signs: Vital Signs x48h Temp Pulse Pulse Resp BP BP BP 03/21/19 12:28 36.3 C L 59 L 16 123/54 L 03/21/19 09:22 37.0 C 64 20 149/72 H 03/21/19 09:02 37 C 64 16 149/72 H 03/21/19 06:39 37.0 C 56 L 18 128/67 03/21/19 06:24 37.1 C 62 18 127/72 03/21/19 05:53 37.0 C 57 L 18 130/65 Pulse Ox 03/21/19 12:28 94 03/21/19 09:22 03/21/19 09:02 98 03/21/19 06:39 03/21/19 06:24 03/21/19 05:53 - Physical Exam General Appearance: positive: No acute distress, Alert Eyes Bilateral: positive: Normal inspection, PERRL, EOMI, Conjunctivae nml ENT: positive: Pharynx nml, No signs of dehydration Neck: positive: Nml inspection, Thyroid nml, No JVD, Trachea midline Respiratory: positive: Chest non-tender, No respiratory distress, Breath sounds nml Cardiovascular: positive: Regular rate & rhythm, No murmur Abdomen: positive: Non-tender, No organomegaly, Nml bowel sounds, No distention Back: negative: CVA tenderness (R), CVA tenderness (L) Skin: positive: Color nml, No rash, Pallor Extremities: positive: Non-tender Neurologic/Psychiatric: positive: Oriented x3, CN's nml (2-12) Conclusion/Plan - Diagnosis Diagnosis: Acute blood loss anemia - Plan Plan: I have recommended EGD this morning. We have discussed the risks and benefits and the patient has expressed a desire to have the procedure. - Lab Results Fish Bones: 03/21/19 11:49 03/21/19 09:23
--- NOTE | 2019-03-21 16:27 | Discharge Plan ---
Discharge Plan Problem Reviewed?: Yes Disposition: Home, Self Care Condition: Poor Prescriptions: Omeprazole 40 mg PO BID #40 capsule. Diet: Regular Activity Restrictions: Activity as Tolerated Shower Restrictions: No (fall precaution) Instruction Topics: Endoscopy Upper GI, Gastric Ulcer, Omeprazole tablets OTC Health Concerns: GI bleed and gastric ulcer Plan of Treatment: you were found to have multiple non-bleeding, clean-based, irregular shaped and shallow ulcers at region of stomach. advise you hold any NSAIDs, alcohol, cigarette smoking, followup GI surgeon Dr. Remy in 4-6 weeks to check the healing of gastric ulcers, followup your PCP in one week to recheck your HGB, followup medication schedule including new meds omeprazole. Care Goals: stabilization and improvement of your medical conditions Assessment: assessment as the above Additional Instructions or Follow Up instructions: Followup your PCP in one week, and recheck your HGB. Should your symptoms return or worsen, you may present ER or call 911 for help. No Smoking: If you smoke, Please STOP! Call for help. Follow-up with: Mike Blankenship MD [Primary Care Provider] -
--- NOTE | 2019-03-21 16:38 | DISCHARGE SUMMARY ---
"Discharge Summary Discharge Date: 03/21/19 Discharging Provider: JUAREZ Primary Care Provider: Dr. Blankenship Condition at Discharge: Poor Discharge Disposition: 01 Home, Self Care Discharge Facility Name: home - DIAGNOSES Admission Diagnoses: (1) Melena (2) Anemia (3) HTN (hypertension) (4) HLD (hyperlipidemia) (5) BPH (benign prostatic hyperplasia) (6) Constipation (7) Sleep apnea (8) Hypothyroidism (9) Osteoarthritis Discharge Diagnoses with Status of Each Condition: (1) Melena resolved. (2) Anemia stable. HGB 7.3 (3) HTN (hypertension) stable (4) HLD (hyperlipidemia) stable (5) BPH (benign prostatic hyperplasia) stable (6) Constipation stable (7) Sleep apnea stable (8) Hypothyroidism stable (9) Osteoarthritis stable - HPI History of Present Illness: Mr. Jacome is a 79-year-old male with a PMH significant for HTN, HLD, Sleep apnea, GERD, hypothyroidism, osteoarthritis, BPH, constipation, chronic hearing loss, who presents with weakness, dizziness and dark stool. pt report over the last several days his bowel movement showed very dark. Patient states that he ga s had darker and looser stool over the past several weeks. He has been feeling quite fatigued and lost energy for the last week. Pt's report pt appears very pale to her. He denies he ever had a GI bleed in the past. He report he had colonoscopy about 2-3 yrs ago which was unremarkable. He state he has never had EGD done before. He denies take NSAIDs, Motrin, Aspirin and alcohol drinking recently. He denies any chest pain, palpitation, abdominal pain, nausea, vomiting, headache or shortness of breath, though he report he became fatigued more easily. HGB test in today was 3.9, WBC was slight elevated to 11.5. Surgeon Dr. Remy was called. Pt is planned to have EGD on tomorrow noon. - CONSULTS | PROCEDURES Consultations: Dr. Shania Remy Procedures: EGD - HOSPITAL COURSE Hospital Course: pt was admitted for anemia and melena. pt was found to HGB 3.9 at the admission. pt had total 5unit of blood. pt had EGD done by Dr. Remy. pt was found to have multiple non-bleeding gastric ulcers. Please review surgeon's The detail report. pt is prescribed high dosage of PPI omeprazole. after treatment, pt had normal bowel movement. his HGB is stable at 7.3. pt has no more acute GI bleed. pt is instructed hold NSAIDs, Aspirin, alcohol for gastric ulcer healing. pt is instructed to followup GI surgeon in 4-6 weeks to check the gastric ulcer healing status. The detail hospital course is as the below: 1) Melena resolved. (2) Anemia stable. HGB 7.3 (3) HTN (hypertension) stable (4) HLD (hyperlipidemia) stable (5) BPH (benign prostatic hyperplasia) stable (6) Constipation stable (7) Sleep apnea stable (8) Hypothyroidism stable (9) Osteoarthritis stable - ALLERGIES Allergies/Adverse Reactions: Allergies Allergy/AdvReac Type Severity Reaction Status Date / Time No Known Drug Allergies Allergy Verified 03/20/19 11:26 - MEDICATIONS Home Medications: Ambulatory Orders Medication Instructions Recorded Confirmed Tamsulosin [Flomax] 0.4 mg PO DAILY 01/24/13 03/21/19 Atorvastatin Calcium 20 mg PO DAILY 04/07/17 03/21/19 Fluticasone Propionate [Flovent 1 spray NS BID 04/07/17 03/21/19 Diskus] raNITIdine [Zantac] 150 mg PO BID 04/07/17 03/21/19 Levothyroxine Sodium 175 mcg PO DAILY 03/20/19 03/21/19 Multivitamin [Multiple Vitamins] 1 each PO DAILY 03/20/19 03/21/19 Acetaminophen 325 - 650 mg PO Q6H PRN MDD 8 tabs 03/21/19 03/21/19 / 24hrs Melatonin 10 mg PO QPM PRN 03/21/19 03/21/19 Omeprazole 40 mg PO BID #40 capsule. 03/21/19 Polyethylene Glycol 3350 [Miralax] 17 gm PO DAILY 03/21/19 03/21/19 - PHYSICAL EXAM AT DISCHARGE General Appearance: positive: No acute distress, Alert. negative: Lethargic Eyes Bilateral: positive: Normal inspection, PERRL, No lid inflammation, Conjunctivae nml ENT: positive: ENT inspection nml, Pharynx nml, No signs of dehydration. negative: Purulent nasal drainage, Pharyngeal erythema, Oral lesions Neck: positive: Nml inspection, Thyroid nml, No JVD, Trachea midline. negative: Thyromegaly, Lymphadenopathy (R), Lymphadenopathy (L), Stiff neck, Swelling/bruising, Tracheal deviation Respiratory: positive: Chest non-tender, No respiratory distress, Breath sounds nml. negative: Wheezes, Rales, Rhonchi Cardiovascular: positive: Regular rate & rhythm, No murmur, No gallop. negative: Irregularly irregular, Extrasystoles, Tachycardia, Bradycardia, JVD present, Systolic murmur, Diastolic murmur Peripheral Pulses: positive: 2+ Abdomen: positive: Non-tender, No organomegaly, Nml bowel sounds, No distention. negative: Tenderness, Guarding, Rebound Back: positive: Nml inspection. negative: CVA tenderness (R), CVA tenderness (L) Skin: positive: Color nml, No rash, Warm, Dry. negative: Cyanosis, Diaphoresis, Pallor Extremities: positive: Non-tender, Full ROM, Nml appearance. negative: Calf tenderness, Joint swelling, Inidana's sign/cords Neurologic/Psychiatric: positive: Oriented x3, Motor nml, Sensation nml, Mood/affect nml. negative: Weakness, Sensory loss, Facial droop, Slurred/abnml speech, Depressed mood/affect - LABS Result Diagrams: 03/21/19 11:49 03/21/19 09:23 - SEPSIS Current Stage of Sepsis: Ruled out - FOLLOW UP Follow Up: you were found to have multiple non-bleeding, clean-based, irregular shaped and shallow ulcers at region of stomach. advise you hold any NSAIDs, alcohol, cigarette smoking, followup GI surgeon Dr. Remy in 4-6 weeks to check the healing of gastric ulcers, followup your PCP in one week to recheck your HGB, followup medication schedule including new meds omeprazole. Followup your PCP in one week, and recheck your HGB. Should your symptoms return or worsen, you may present ER or call 911 for help. - TIME SPENT Time Spent in Discharge (Minutes): 55"
[2019-03-21 17:37] VITALS: BP 149/58
[2019-03-22] MEDS ORDERED: LEVOTHYROXINE 75 MCG TABLET PO SCH (09:00)
[2019-03-22] MEDS ORDERED: LEVOTHYROXINE 100 MCG TABLET PO SCH (09:00)
== END 2019-03-21 17:40 | disposition home or self-care (01) ==
LOC: ED 11:11 → MS2 15:38
PROVIDERS: ADMIT Nurse Practitioner Gerontology; ATTEND Nurse Practitioner Gerontology
PROC: 0DB38ZX Excision of Lower Esophagus, Via Natural or Artificial Opening Endoscopic, Diagnostic (ICD-10-PCS; principal; 2019-03-20)
PROC: 0DB68ZX Excision of Stomach, Via Natural or Artificial Opening Endoscopic, Diagnostic (ICD-10-PCS; 2019-03-20)
DX: K25.4 Chronic or unspecified gastric ulcer with hemorrhage (principal); K22.70 Barrett's esophagus without dysplasia; D62 Acute posthemorrhagic anemia; K44.9 Diaphragmatic hernia without obstruction or gangrene; I10 Essential (primary) hypertension; E78.5 Hyperlipidemia, unspecified; N40.0 Benign prostatic hyperplasia without lower urinary tract symptoms; K59.09 Other constipation; G47.30 Sleep apnea, unspecified; E03.9 Hypothyroidism, unspecified; M19.90 Unspecified osteoarthritis, unspecified site; K21.9 Gastro-esophageal reflux disease without esophagitis; H91.90 Unspecified hearing loss, unspecified ear; Z66 Do not resuscitate; Z79.1 Long term (current) use of non-steroidal anti-inflammatories (NSAID); Z79.82 Long term (current) use of aspirin
CPT/HCPCS: 36415; 36430; 43239; 74177; 80048; 80053; 81003; 83690; 83735; 84439; 84443; 85014; 85018; 85025; 85610; 85730; 86850; 86900; 86901; 86920; 88305; 96361; 96374; 96376; 99284; 99285; A9270; G0378; J7120; P9016; Q9967; 81001; 87086

== ENCOUNTER 2019-03-28 14:38 | Outpatient (CLI) | payer MEDICARE, OTHER ==
[2019-03-28 17:11] LABS: HGB - HEMOGLOBIN 9.3 g/dL (14.0-18.0); MEAN CORPUSCULAR HEMOGLOBIN 25.6 pg (27.0-31.0); MEAN CORPUSCULAR HGB CONC 28.4 g/dL (32.0-36.0); MEAN CORPUSCULAR VOLUME 90.1 fL (80.0-94.0); MEAN PLATELET VOLUME 9.8 fL (7.4-11.4); RED BLOOD COUNT 3.63 10^6/uL (4.70-6.10); RED CELL DISTRIBUTION WIDTH 15.9 % (12.0-15.0); WHITE BLOOD COUNT 6.5 x10^3/uL (4.8-10.8)
[2019-03-28 17:49] LABS: CALCIUM 8.6 mg/dL (8.5-10.3); CREATININE 0.8 mg/dL (0.6-1.2)
== END 2019-03-28 14:39 | disposition home or self-care (01) ==
LOC: LAB.S 14:38
PROVIDERS: ATTEND Internal Medicine
DX: I10 Essential (primary) hypertension (principal); E03.9 Hypothyroidism, unspecified; K21.9 Gastro-esophageal reflux disease without esophagitis
CPT/HCPCS: 36415; 80048; 84443; 85027

== ENCOUNTER 2019-06-06 09:36 | Outpatient (CLI) | payer MEDICARE, OTHER ==
[2019-06-06 18:00] LABS: HGB - HEMOGLOBIN 9.2 g/dL (14.0-18.0); MEAN CORPUSCULAR HEMOGLOBIN 22.9 pg (27.0-31.0); MEAN CORPUSCULAR HGB CONC 26.3 g/dL (32.0-36.0); MEAN CORPUSCULAR VOLUME 87.1 fL (80.0-94.0); RED BLOOD COUNT 4.02 10^6/uL (4.70-6.10); WHITE BLOOD COUNT 3.8 x10^3/uL (4.8-10.8)
[2019-06-06 18:29] LABS: ALBUMIN 4.3 g/dL (3.2-5.5); ALBUMIN/GLOBULIN RATIO 1.7 (1.0-2.2); ALKALINE PHOSPHATASE 64 IU/L (42-121); ALT ALANINE AMINOTRANSFERASE 18 IU/L (10-60); AST ASPARTATE AMINOTRANSFERASE 20 IU/L (10-42); BILIRUBIN,TOTAL 0.5 mg/dL (0.2-1.0); BUN - BLOOD UREA NITROGEN 14 mg/dL (6-20); CALCIUM 9.3 mg/dL (8.5-10.3); CARBON DIOXIDE - CO2 30 mmol/L (21-32); CHLORIDE 104 mmol/L (101-111); CHOL/HDL RATIO 2.1 (<5.0); CHOLESTEROL 152 mg/dL; CREATININE 0.9 mg/dL (0.6-1.2); GFR - MDRD 81 (>89); GLUCOSE 95 mg/dL (70-100); HDL CHOLESTEROL 72 mg/dL; LDL CHOLESTEROL,CALCULATED 69 mg/dL; SODIUM 140 mmol/L (135-145); TOTAL PROTEIN 6.9 g/dL (6.7-8.2); VLDL CHOLESTEROL 11 mg/dL
[2019-06-06 18:56] LABS: FREE T4 (FREE THYROXINE) 1.92 ng/dL (0.58-1.64)
== END 2019-06-06 09:37 | disposition home or self-care (01) ==
LOC: LAB.S 09:36
PROVIDERS: ATTEND Internal Medicine
DX: E78.00 Pure hypercholesterolemia, unspecified (principal); E03.9 Hypothyroidism, unspecified
CPT/HCPCS: 36415; 80053; 80061; 83721; 84439; 84443; 85027

== ENCOUNTER 2019-08-23 09:48 | Outpatient (CLI) | payer MEDICARE, OTHER ==
[2019-08-23 17:44] LABS: HGB - HEMOGLOBIN 9.1 g/dL (14.0-18.0); MEAN CORPUSCULAR HEMOGLOBIN 21.8 pg (27.0-31.0); MEAN CORPUSCULAR HGB CONC 25.9 g/dL (32.0-36.0); MEAN CORPUSCULAR VOLUME 84.2 fL (80.0-94.0); MEAN PLATELET VOLUME 9.3 fL (7.4-11.4); RED BLOOD COUNT 4.18 10^6/uL (4.70-6.10); RED CELL DISTRIBUTION WIDTH 16.8 % (12.0-15.0); WHITE BLOOD COUNT 4.9 x10^3/uL (4.8-10.8)
[2019-08-23 18:31] LABS: FREE T4 (FREE THYROXINE) 1.66 ng/dL (0.58-1.64)
== END 2019-08-23 09:49 | disposition home or self-care (01) ==
LOC: LAB.S 09:48
PROVIDERS: ATTEND Internal Medicine
DX: E03.9 Hypothyroidism, unspecified (principal)
CPT/HCPCS: 36415; 84439; 84443; 85027

== ENCOUNTER 2020-07-19 18:12 | Inpatient (IN) | payer MEDICARE, OTHER ==
--- NOTE | 2020-07-19 18:39 | ED Physician Documentation ---
PD HPI ABD PAIN - Stated complaint Stated Complaint: ABD PX - Chief complaint Chief Complaint: Abd Pain - History obtained from History obtained from: Patient - Additional information Additional information: 80-year-old with history of ulcer Nonradiating upper abdominal pain about 2 hours ago. It started about half an hour he after eating tortillas soup for dinner. He has never had it before. He is not currently on a PPI or any other ulcer medicine. Denies history of heart problems. Did have a normal bowel movement this morning. He does have very mild nausea with it. Review of Systems Ten Systems: 10 systems reviewed and negative Constitutional: denies: Fever, Chills, Weight Loss GI: reports: Nausea PD PAST MEDICAL HISTORY - Past Medical History Cardiovascular: Hypertension, High cholesterol Respiratory: Sleep apnea, CPAP use Neuro: None Endocrine/Autoimmune: HyPOthyroidism GI: GERD : Benign prostate hypertrophy HEENT: Chronic hearing loss Psych: None Musculoskeletal: Osteoarthritis Derm: None - Past Surgical History Past Surgical History: Yes General: Colonoscopy Ortho: Rotator cuff repair - Present Medications Home Medications: Ambulatory Orders Medication Instructions Recorded Confirmed Tamsulosin [Flomax] 0.4 mg PO DAILY 01/24/13 03/21/19 Atorvastatin Calcium 20 mg PO DAILY 04/07/17 03/21/19 Fluticasone Propionate [Flovent 1 spray NS BID 04/07/17 03/21/19 Diskus] Levothyroxine Sodium 175 mcg PO DAILY 03/20/19 03/21/19 Multivitamin [Multiple Vitamins] 1 each PO DAILY 03/20/19 03/21/19 Acetaminophen 325 - 650 mg PO Q6H PRN MDD 8 tabs 03/21/19 03/21/19 / 24hrs Melatonin 10 mg PO QPM PRN 03/21/19 03/21/19 Omeprazole 40 mg PO BID #40 capsule. 03/21/19 polyethylene glycoL 3350 [Miralax] 17 gm PO DAILY 03/21/19 03/21/19 - Allergies Allergies/Adverse Reactions: Allergies Allergy/AdvReac Type Severity Reaction Status Date / Time No Known Drug Allergies Allergy Verified 07/19/20 18:16 - Social History Does the pt smoke?: No Smoking Status: Never smoker Does the pt drink ETOH?: No Does the pt have substance abuse?: No - Immunizations Immunizations are current?: Yes - POLST Patient has POLST: No PD ED PE NORMAL - Vitals Vital signs reviewed: Yes - General General: Alert and oriented X 3, No acute distress - HEENT HEENT: PERRL, EOMI - Neck Neck: Supple, no meningeal sign, No bony TTP - Cardiac Cardiac: RRR, No murmur - Respiratory Respiratory: No respiratory distress, Clear bilaterally - Abdomen Abdomen: Other (Minimal upper abdominal tenderness which seems most in the epigastrium, no surgical signs. Normal bowel tones.) - Back Back: No CVA TTP, No spinal TTP - Derm Derm: Normal color, Warm and dry - Extremities Extremities: No edema, No calf tenderness / cord - Neuro Neuro: Alert and oriented X 3, Normal speech Results - Vitals Vitals: Vital Signs - 24 hr 07/19/20 07/19/20 07/19/20 18:16 19:00 21:00 Temperature 36.5 C 36.8 C 36.4 C L Heart Rate 58 L 56 L 54 L Respiratory 16 23 21 Rate Blood Pressure 170/79 H 155/78 H 139/69 H O2 Saturation 100 100 100 Oxygen O2 Source Room air - EKG (time done) 1844 Rate: Rate (enter#) (53) Rhythm: NSR Intervals: RBBB Ischemia: Normal ST segments Computer interpretation: Agree with computer - Labs Labs: Laboratory Tests 07/19/20 07/19/20 07/19/20 18:40 18:40 18:40 WBC 6.8 RBC 4.36 L Hgb 9.5 L Hct 35.7 L MCV 81.9 MCH 21.8 L MCHC 26.6 L RDW 18.6 H Plt Count 266 MPV 9.3 Neut # (Auto) 6.1 Lymph # (Auto) 0.3 L [place] # (Auto) 0.3 Eos # (Auto) 0.0 Baso # (Auto) 0.0 Absolute Nucleated RBC 0.00 Nucleated RBC % 0.0 Manual Slide Review Indicated Platelet Estimate NORMAL (130-450,000) Platelet Morphology NORMAL APPEARANCE RBC Morph Micro Appear 1+ HYPOCHROMASIA PT 12.0 INR 1.1 Sodium 138 Potassium 3.8 Chloride 101 Carbon Dioxide 28 Anion Gap 9.0 BUN 22 H Creatinine 0.9 Estimated GFR (MDRD) 81 L Glucose 127 H Calcium 9.2 Total Bilirubin 0.6 AST 17 ALT 18 Alkaline Phosphatase 77 Total Protein 7.1 Albumin 4.3 Globulin 2.8 Albumin/Globulin Ratio 1.5 Lipase 115 H Urine Color Urine Clarity Urine pH Ur Specific [place] Urine Protein Urine Glucose (UA) Urine Ketones Urine Occult Blood Urine Nitrite Urine Bilirubin Urine Urobilinogen Ur Leukocyte Esterase Ur Microscopic Review Urine Culture Comments 07/19/20 19:13 WBC RBC Hgb Hct MCV MCH MCHC RDW Plt Count MPV Neut # (Auto) Lymph # (Auto) [place] # (Auto) Eos # (Auto) Baso # (Auto) Absolute Nucleated RBC Nucleated RBC % Manual Slide Review Platelet Estimate Platelet Morphology RBC Morph Micro Appear PT INR Sodium Potassium Chloride Carbon Dioxide Anion Gap BUN Creatinine Estimated GFR (MDRD) Glucose Calcium Total Bilirubin AST ALT Alkaline Phosphatase Total Protein Albumin Globulin Albumin/Globulin Ratio Lipase Urine Color YELLOW Urine Clarity CLEAR Urine pH 6.0 Ur Specific [place] 1.025 Urine Protein NEGATIVE Urine Glucose (UA) NEGATIVE Urine Ketones NEGATIVE Urine Occult Blood NEGATIVE Urine Nitrite NEGATIVE Urine Bilirubin NEGATIVE Urine Urobilinogen 0.2 (NORMAL) Ur Leukocyte Esterase NEGATIVE Ur Microscopic Review NOT INDICATED Urine Culture Comments NOT INDICATED PD MEDICAL DECISION MAKING - ED course ED course: Presents with acute upper abdominal pain. He declines pain medication and does not appear to be in extremis. Labs were relatively unremarkable save hemoglobin of 9.5 but review of old records shows that this is his baseline for a long time. CT shows a large paraesophageal hernia with the proximal stomach being distended with an air-fluid level concerning for volvulus and obstruction. There is also an infiltrate in the lingula. Case was discussed by phone with Dr. Shania Remy at approximately 10:15 PM. She will seen in consult but I do not think he is an urgent surgical candidate given his exam and she recommends admission to medicine with an NG tube. Departure - Departure Disposition: [facility] DC/Xfer Clinical Impression: Paraesophageal hernia, Gastric outlet obstruction Condition: Serious
[2020-07-19 19:11] LABS: BASOPHILS % (AUTO) 0.4 %; EOSINOPHILS % (AUTO) 0.1 %; HGB - HEMOGLOBIN 9.5 g/dL (14.0-18.0); LYMPHOCYTES # (AUTO) 0.3 10^3/uL (1.5-3.5); MEAN CORPUSCULAR HEMOGLOBIN 21.8 pg (27.0-31.0); MEAN CORPUSCULAR HGB CONC 26.6 g/dL (32.0-36.0); MEAN CORPUSCULAR VOLUME 81.9 fL (80.0-94.0); MEAN PLATELET VOLUME 9.3 fL (7.4-11.4); MONOCYTES # (AUTO) 0.3 10^3/uL (0.0-1.0); MONOCYTES % (AUTO) 4.3 %; NEUTROPHILS # (AUTO) 6.1 10^3/uL (1.5-6.6); NEUTROPHILS % (AUTO) 89.8 %; PLT - PLATELET COUNT 266 10^3/uL (130-450); RED BLOOD COUNT 4.36 10^6/uL (4.70-6.10); RED CELL DISTRIBUTION WIDTH 18.6 % (12.0-15.0); WHITE BLOOD COUNT 6.8 x10^3/uL (4.8-10.8)
[2020-07-19 19:17] LABS: INR 1.1 (0.8-1.2)
[2020-07-19 19:23] LABS: ALBUMIN 4.3 g/dL (3.2-5.5); ALBUMIN/GLOBULIN RATIO 1.5 (1.0-2.2); BILIRUBIN,TOTAL 0.6 mg/dL (0.2-1.0); CALCIUM 9.2 mg/dL (8.5-10.3); CREATININE 0.9 mg/dL (0.6-1.2); TOTAL PROTEIN 7.1 g/dL (6.7-8.2)
[2020-07-19 19:26] LABS: BILIRUBIN,URINE NEGATIVE (NEGATIVE); GLUCOSE, URINE (UA) NEGATIVE (NEGATIVE); KETONES,URINE (UA) NEGATIVE (NEGATIVE); LEUKOCYTE ESTERASE, URINE NEGATIVE (NEGATIVE); NITRITE,URINE NEGATIVE (NEGATIVE); OCCULT BLOOD,URINE NEGATIVE (NEGATIVE); PROTEIN,URINE NEGATIVE (NEGATIVE); UROBILINOGEN,URINE 0.2 (NORMAL) E.U./dL (NORMAL)
[2020-07-19 19:28] LABS: CLARITY,URINE CLEAR (CLEAR)
[2020-07-19 19:54] LABS: PLATELET ESTIMATE, MANUAL NORMAL (130-450,000) (NORMAL); PLATELET MORPHOLOGY NORMAL APPEARANCE (NORMAL)
[2020-07-19] MEDS ORDERED: IOVERSOL 320 100 ML VIAL IVP ONE ×2 (21:01→21:25)
--- NOTE | 2020-07-19 22:04 | CT Report ---
PROCEDURE: Abdomen/Pelvis W INDICATIONS: IV only, upper abd pain CONTRAST: IV CONTRAST: Optiray 320 ml: 100 PO CONTRAST: *NO PO CONTRAST TECHNIQUE: After the administration of intravenous contrast, 5 mm thick sections acquired from the diaphragms to the symphysis. 5 mm thick coronal and sagittal reformats were acquired. For radiation dose reducti on, the following was used: automated exposure control, adjustment of mA and/or kV according to daniella ent size. COMPARISON: CT abdomen and pelvis with contrast, 03/20/2019. FINDINGS: Image quality: Excellent. ABDOMEN: Lung bases: There is infiltrate in the lingula. Bibasilar dependent atelectasis. Heart size is azul l. There is a large paraesophageal hiatal hernia. The proximal stomach is distended with an air-flui d level. The stomach antrum is superior to the gastric cardia within the thorax. CT findings are cons istent with gastric volvulus. Solid organs: Liver and spleen are normal in size and enhancement. Gallbladder is normal. Biliary system is non dilated. Pancreas enhances normally. No adrenal nodules. Kidneys demonstrate normal size and enhancement, without hydronephrosis. Peritoneum and bowel: Bowel loops demonstrate normal wall thickness and caliber. There is a moderat e amount of stool in colon. No free fluid or air. Nodes and vessels: No retroperitoneal or mesenteric adenopathy by size criteria. Aorta and inferior vena cava are normal in size. Moderate atherosclerotic calcification of distal abdominal aorta and iliac arteries. Miscellaneous: There is a small fat-containing umbilical hernia. PELVIS: Genitourinary: Bladder wall thickness is normal. Prostate is enlarged. A penile implant is noted. Miscellaneous: No inguinal hernias or adenopathy. Bones: No suspicious bony lesions. Moderate chronic vertebral body compression fracture of L1. Dege nerative changes in the lower thoracic and lumbar spine. IMPRESSION: 1. There is a large paraesophageal hiatal hernia. The gastric antrum is superior to the gastric cardi a and situated within the thorax. The proximal stomach is distended with an air-fluid level. The CT f indings are consistent with gastric volvulus and gastric obstruction. 2. Infiltrate in the lingula suspicious for pneumonia. 3. Bibasilar atelectasis. Reviewed by: Rasta Beck MD on 07/19/2020 10:03 PM PST Approved by: Rasta Beck MD on 07/19/2020 10:03 PM [facility] Station ID: [id number]
[2020-07-19] MEDS ORDERED: D5.45NS W/20 MEQ KCL 1,000 ML IV STA (22:26)
--- NOTE | 2020-07-19 22:51 | HISTORY & PHYSICAL EXAMINATION ---
History of Present Illness - Admitted From Admitted From:: [facility] ED - History Obtained From Records Reviewed: yes History obtained from: patient - History of Present Illness HPI Comment/Other: Patient is an 82-year-old male who presented to the ED with complaint of upper abdominal pain which started around 3 PM shortly after having a bowl of tortilla soup. He described it as an 8/10 sharp pain. He felt similar symptoms about 1 to 2 weeks ago. He was nauseous but did not vomit. He denied chest pain, dyspnea, fever or chills. At the time of my exam, he denied any significant pain. Work-up in the ED included CT of the abdomen/pelvis which showed a significant paraesophageal hernia with the stomach in the thoracic cavity and a gastric volvulus with obstruction. Dr Shania Remy With general surgery was contacted by the ED physician Dr. Gay and she advised inserting an NG tube for decompression. The patient is being admitted for further treatment. History - Past Medical History Cardiovascular: reports: Hypertension, High cholesterol Respiratory: reports: Sleep apnea, CPAP use Neuro: reports: None Endocrine/Autoimmune: reports: HyPOthyroidism GI: reports: GERD : reports: Benign prostate hypertrophy HEENT: reports: Chronic hearing loss Psych: reports: None Musculoskeletal: reports: Osteoarthritis Derm: reports: None MRSA Hx?: No - Past Surgical History General: reports: Colonoscopy Ortho: reports: Knee replacement (right), Rotator cuff repair - Family & Social History Family History: Mother: CAD, Father: Cancer Family History Comment/Other: pt report his father from advanced prostate cancer, his mother from heart attack. He has two children who are healthy. Social History Notes: He denies cigarette smoking, alcohol and drug issue. - POLST Patient has POLST: No POLST Status: Full Code Meds/Allgy - Home Medications Home Medications: Ambulatory Orders Medication Instructions Recorded Confirmed Tamsulosin [Flomax] 0.4 mg PO DAILY 01/24/13 03/21/19 Atorvastatin Calcium 20 mg PO DAILY 04/07/17 03/21/19 Fluticasone Propionate [Flovent 1 spray NS BID 04/07/17 03/21/19 Diskus] Levothyroxine Sodium 175 mcg PO DAILY 03/20/19 03/21/19 Multivitamin [Multiple Vitamins] 1 each PO DAILY 03/20/19 03/21/19 Acetaminophen 325 - 650 mg PO Q6H PRN MDD 8 tabs 03/21/19 03/21/19 / 24hrs Melatonin 10 mg PO QPM PRN 03/21/19 03/21/19 Omeprazole 40 mg PO BID #40 capsule. 03/21/19 polyethylene glycoL 3350 [Miralax] 17 gm PO DAILY 03/21/19 03/21/19 - Allergies Allergies/Adverse Reactions: Allergies Allergy/AdvReac Type Severity Reaction Status Date / Time No Known Drug Allergies Allergy Verified 07/19/20 18:16 Review of Systems - Constitutional Constitutional: denies: Fatigue, Fever, Chills - Eyes Eyes: denies: Pain - Ears, Nose & Throat Ears, Nose & Throat: denies: Ear pain - Cardiovascular Cariovascular: denies: Irregular heart rate, Palpitations, Chest pain, Edema, Lightheadedness, Syncope, Exertional dyspnea - Respiratory Respiratory: denies: Cough, Sputum production, Wheezing, Snoring, Orthopnea, SOB at rest - Gastrointestinal Gastrointestinal: reports: Abdominal pain. denies: Constipation, Coffee grounds emesis - Genitourinary Genitourinary: denies: Dysuria, Frequency, Urgency, Hematuria - Musculoskeletal Musculoskeletal: denies: Muscle pain, Back pain, Muscle aches - Integumentary Integumentary: denies: Rash, Pruritis, Lesions, Dryness - Neurological Neurological: denies: General weakness, Focal weakness, Headache, Dizziness - Psychiatric Psychiatric: denies: Depression, Anxiety - Endocrine Endocrine: denies: Polyuria, Polydypsia - Hematologic/Lymphatic Hematologic/Lymphatic: denies: Anemia, Bruising, Petechiae Prior Level of Functionality: Patient is independent of activities of daily living Exam - Vital Signs Vital Signs: Vital Signs x48h Temp Pulse Resp BP Pulse Ox 07/19/20 21:00 36.4 C L 54 L 21 139/69 H 100 07/19/20 19:00 36.8 C 56 L 23 155/78 H 100 07/19/20 18:16 36.5 C 58 L 16 170/79 H 100 - Physical Exam General Appearance: positive: Alert, Mild distress Eyes Bilateral: positive: PERRL, EOMI ENT: positive: No signs of dehydration Neck: positive: No JVD, Trachea midline Respiratory: positive: Chest non-tender, No respiratory distress, Breath sounds nml. negative: Wheezes, Rales, Rhonchi Cardiovascular: positive: Regular rate & rhythm, No murmur Abdomen: positive: Non-tender, Tenderness. negative: Guarding, Rebound Back: positive: Nml inspection Skin: positive: Color nml, No rash, Warm, Dry Extremities: positive: Non-tender, Full ROM, Nml appearance, No pedal edema Neurologic/Psychiatric: positive: Oriented x3, Mood/affect nml Conclusion/Plan - Problem List (1) Gastric outlet obstruction Conclusion/Plan: Patient is n.p.o. except for medications. Dr. Shania Remy with general surgery was contacted by Dr Espitia. She recommended insertion of an NG tube to assist with decompression. She will see the patient in the morning. IV hydratin with D5+0.45NS+20mEqKCl at 125ml/hr (2) Gastric volvulus Conclusion/Plan: Patient is n.p.o. except for medications. Dr. Shania Remy with general surgery was contacted by Dr Espitia. She recommended insertion of an NG tube to assist with decompression. She will see the patient in the morning. IV hydratin with D5+0.45NS+20mEqKCl at 125ml/hr (3) HLD (hyperlipidemia) Conclusion/Plan: On atorvastatin 20 mg p.o. daily. (5) Hypothyroidism Conclusion/Plan: On levothyroxine 175 mcg p.o. daily (6) Sleep apnea Conclusion/Plan: On CPAP (7) BPH (benign prostatic hyperplasia) Conclusion/Plan: On tamsulosin 0.4 mg p.o. daily - Lab Results Fish Bones: 07/19/20 18:40 07/19/20 18:40 Core Measures - Anticipated LOS I expect patient to be DC'd or transferred within 96 hours.: Yes - DVT/VTE - Prophylaxis VTE/DVT Device ordered at admit?: Yes VTE/DVT Prophylaxis med ordered at admit?: Yes
[2020-07-19] MEDS ORDERED: SODIUM CHLORIDE 0.9% 1,000 ML IV SCH (23:00)
[2020-07-19] MEDS ORDERED: D5NS W/20 MEQ KCL 1,000 ML IV SCH (23:00)
[2020-07-20 00:27] LABS: C. PNEUMONIAE- RESP PCR PANEL NOT DETECTED
[2020-07-20] MEDS: SODIUM CHLORIDE FLUSH 0.9% 10 ML SYRINGE IVP SCH ×3 (01:48→15:58)
[2020-07-20 05:15] LABS: BASOPHILS # (AUTO) 0.1 10^3/uL (0.0-0.1); BASOPHILS % (AUTO) 0.8 %; EOSINOPHILS # (AUTO) 0.1 10^3/uL (0.0-0.7); HGB - HEMOGLOBIN 8.3 g/dL (14.0-18.0); LYMPHOCYTES # (AUTO) 1.1 10^3/uL (1.5-3.5); LYMPHOCYTES % (AUTO) 17.6 %; MEAN CORPUSCULAR HGB CONC 27.4 g/dL (32.0-36.0); MEAN CORPUSCULAR VOLUME 80.2 fL (80.0-94.0); MONOCYTES # (AUTO) 0.6 10^3/uL (0.0-1.0); MONOCYTES % (AUTO) 8.9 %; NEUTROPHILS # (AUTO) 4.4 10^3/uL (1.5-6.6); NEUTROPHILS % (AUTO) 71.4 %; PLT - PLATELET COUNT 219 10^3/uL (130-450); RED BLOOD COUNT 3.78 10^6/uL (4.70-6.10); RED CELL DISTRIBUTION WIDTH 18.7 % (12.0-15.0); WHITE BLOOD COUNT 6.2 x10^3/uL (4.8-10.8)
[2020-07-20 05:21] LABS: CALCIUM 8.9 mg/dL (8.5-10.3); CREATININE 0.8 mg/dL (0.6-1.2)
[2020-07-20 05:36] LABS: PLATELET ESTIMATE, MANUAL NORMAL (130-450,000) (NORMAL); PLATELET MORPHOLOGY NORMAL APPEARANCE (NORMAL); RBC MORPHOLOGY (MULTIPLE) 2+ HYPOCHROMASIA (NORMAL)
[2020-07-20] MEDS: PANTOPRAZOLE 40 MG VIAL IVP SCH (06:24)
[2020-07-20] MEDS: SODIUM CHLORIDE FLUSH 0.9% 10 ML SYRINGE IVP PRN ×2 (06:24→06:31)
[2020-07-20] MEDS: D5.45NS W/20 MEQ KCL 1,000 ML IV SCH ×4 (06:34→21:55)
[2020-07-20] MEDS: PHENOL THROAT SPRAY 177 ML MM PRN ×2 (06:42→14:35)
--- NOTE | 2020-07-20 08:20 | XRAY Report ---
PROCEDURE: Chest for Line Placement INDICATIONS: NG tube placement TECHNIQUE: One view of the chest was acquired. COMPARISON: CT abdomen/pelvis same day. FINDINGS: Surgical changes and devices: Esophagogastric tube extends below the imaging margin at least into the gastric body.. Lungs and pleura: No pleural effusions or pneumothorax. Lungs are mildly abnormal with what appears to be likely mild atelectasis at the lateral left lung base in the setting of reduced inspiration. Mediastinum: Mediastinal contours appear normal, except for a moderately large hiatal hernia contain ing gas and fluid behind the heart. Heart size is normal. Bones and chest wall: No suspicious bony lesions. Overlying soft tissues appear unremarkable. IMPRESSION: Reduced inspiratory volume, atelectasis versus mild pneumonia lateral left lung base. Esophagogastric tube extends below the imaging margin at least into the gastric body. Moderately large hiatal hernia as discussed. Reviewed by: Todd Adame MD on 07/20/2020 8:18 AM PST Approved by: Todd Adame MD on 07/20/2020 8:18 AM PST Station ID: [id number]
--- NOTE | 2020-07-20 11:14 | PHARMACY PROGRESS NOTE ---
- Best Possible Medication History Admit Date and Time: 07/19/20 8235 Processed by: Pharmacy Medication History completed: Yes Patient Interview: Completed Secondary Source(s): Physician records, Pharmacy records, Insurance records As the person ultimately responsible for medication therapy, providers are able to order a medication from an existing home medication list in [facility] via the "Reconcile Routine" prior to Confirmation of that medication by instructional support specialist. Such practice is discouraged except when the physician, in their clinical judgment, deems that a medical need exists for a medication without regard to previous use.
--- NOTE | 2020-07-20 15:15 | PROVIDER PROGRESS NOTE ---
Assessment/Plan - Problem List (1) Paraesophageal hernia Assessment/Plan: The entire stomach was in thorax, per imaging. (2) Gastric outlet obstruction Assessment/Plan: Patient is n.p.o. (except for medications). Dr. Shania Remy with general surgery was contacted by Dr Espitia, the ER MD. I called her today as well and she is scrubbed in the OR and her surgery consult is still pending. Because he still needs improvement, and per 2-midnight rule, will admit him to Inpatient status. Continue NG tube to assist with decompression. Awaiting Gen Surg input for removing ng and starting on clear liquids. Continue IV hydratin (3) Gastric volvulus Assessment/Plan: He is not in pain, with the stomach decompressed. Plan is as in #2. (4) Anemia Qualifiers: Anemia type: unspecified type Qualified Code(s): D64.9 - Anemia, unspecified Assessment/Plan: Possibly partly hemodilutional. Follow CBC daily. We will check B12, folate levels and iron stores and replace if low. (5) BPH (benign prostatic hyperplasia) Assessment/Plan: On tamsulosin 0.4 mg p.o. daily (6) HLD (hyperlipidemia) Assessment/Plan: On atorvastatin 20 mg p.o. daily. (7) Hypothyroidism Assessment/Plan: On levothyroxine 175 mcg p.o. daily (8) Sleep apnea Assessment/Plan: On CPAP - Current Meds Current Meds: Current Medications Generic Name Dose Route Start Last Admin Trade Name Freq PRN Reason Stop Dose Admin Potassium Chloride/Dextrose/Sod Cl 1,000 mls @ 125 mls/hr 07/19/20 23:00 07/20/20 14:34 D5.45ns W/20 Meq Kcl IV 125 mls/hr .Q8H ADRIAN Administration Pantoprazole Sodium 40 mg 07/20/20 07:00 07/20/20 06:24 Pantoprazole 40 Mg Vial IVP 40 mg QDAC ADRIAN Administration Phenol/Menthol 2 sprays 07/20/20 06:32 07/20/20 14:35 Phenol Throat Varney 177 Ml MM 2 sprays Q2HR PRN Administration Throat Pain Sodium Chloride 10 ml 07/19/20 22:42 07/20/20 06:31 Sodium Chloride Flush 0.9% 10 Ml Syringe IVP 10 ml PRN PRN Administration NEEDED PER PROVIDER ORDERS Sodium Chloride 10 ml 07/20/20 01:00 07/20/20 08:34 Sodium Chloride Flush 0.9% 10 Ml Syringe IVP Not Given 0100,0900,1700 ADRIAN - Lab Result Fish Bone Diagrams: 07/20/20 05:06 07/20/20 05:06 - Additional Planning My Orders: My Active Orders 07/20/20 15:08 Admit \ Transfer \ Status [RC] .ONCE Subjective - Subjective Patient Reports: Feeling Better (He is passing gas but has had no BM), Other (Still has ng draining fluid to wall suction) Objective Vital Signs: Vital Signs - 24 hr 07/19/20 07/19/20 07/19/20 18:16 19:00 21:00 Temperature 36.5 C 36.8 C 36.4 C L Heart Rate 58 L 56 L 54 L Heart Rate [ Brachial] Respiratory 16 23 21 Rate Blood Pressure 170/79 H 155/78 H 139/69 H Blood Pressure [Right Brachial artery] O2 Saturation 100 100 100 07/19/20 07/20/20 07/20/20 23:00 02:00 06:00 Temperature 36.4 C L 36.5 C 36.6 C Heart Rate 55 L Heart Rate [ 58 L 52 L Brachial] Respiratory 12 16 16 Rate Blood Pressure 135/67 H Blood Pressure 153/67 H 143/68 H [Right Brachial artery] O2 Saturation 100 97 95 07/20/20 07/20/20 07:38 11:35 Temperature 36.5 C 36.7 C Heart Rate Heart Rate [ 55 L 52 L Brachial] Respiratory 20 18 Rate Blood Pressure Blood Pressure 144/69 H 147/68 H [Right Brachial artery] O2 Saturation 94 96 Oxygen O2 Source Room air I&O (Last 24 Hrs): Intake and Output Totals x24h 07/18/20 07/19/20 07/20/20 23:59 23:59 23:59 Intake Total 2030 Output Total 500 Balance 1530 General: Alert HEENT: Mucous membr. moist/pink, Other (NG tube in place, suction is still prod ucing gastric liquid) Neck: Supple Neuro: Non Focal Cardiovascular: Regular rate, No murmurs Respiratory: No respiratory distress Abdomen: Normal bowel sounds, Soft, No tenderness Extremities: No edema - Results Results: Laboratory Results WBC 6.2 x10^3/uL (4.8-10.8) 07/20/20 05:06 RBC 3.78 10^6/uL (4.70-6.10) L 07/20/20 05:06 Hgb 8.3 g/dL (14.0-18.0) L 07/20/20 05:06 Hct 30.3 % (42.0-52.0) L 07/20/20 05:06 MCV 80.2 fL (80.0-94.0) 07/20/20 05:06 MCH 22.0 pg (27.0-31.0) L 07/20/20 05:06 MCHC 27.4 g/dL (32.0-36.0) L 07/20/20 05:06 RDW 18.7 % (12.0-15.0) H 07/20/20 05:06 Plt Count 219 10^3/uL (130-450) 07/20/20 05:06 MPV 9.0 fL (7.4-11.4) 07/20/20 05:06 Neut # (Auto) 4.4 10^3/uL (1.5-6.6) 07/20/20 05:06 Lymph # (Auto) 1.1 10^3/uL (1.5-3.5) L 07/20/20 05:06 [place] # (Auto) 0.6 10^3/uL (0.0-1.0) 07/20/20 05:06 Eos # (Auto) 0.1 10^3/uL (0.0-0.7) 07/20/20 05:06 Baso # (Auto) 0.1 10^3/uL (0.0-0.1) 07/20/20 05:06 Absolute Nucleated RBC 0.00 x10^3/uL 07/20/20 05:06 Nucleated RBC % 0.0 /100WBC 07/20/20 05:06 Manual Slide Review Indicated 07/20/20 05:06 Platelet Estimate NORMAL (130-450,000) (NORMAL) 07/20/20 05:06 Platelet Morphology NORMAL APPEARANCE (NORMAL) 07/20/20 05:06 RBC Morph Micro Appear 2+ HYPOCHROMASIA (NORMAL) 07/20/20 05:06 PT 12.0 secs (9.9-12.6) 07/19/20 18:40 INR 1.1 (0.8-1.2) 07/19/20 18:40 Sodium 138 mmol/L (135-145) 07/20/20 05:06 Potassium 3.8 mmol/L (3.5-5.0) 07/20/20 05:06 Chloride 104 mmol/L (101-111) 07/20/20 05:06 Carbon Dioxide 27 mmol/L (21-32) 07/20/20 05:06 Anion Gap 7.0 (6-13) 07/20/20 05:06 BUN 17 mg/dL (6-20) 07/20/20 05:06 Creatinine 0.8 mg/dL (0.6-1.2) 07/20/20 05:06 Estimated GFR (MDRD) 93 (>89) 07/20/20 05:06 Glucose 122 mg/dL (70-100) H 07/20/20 05:06 Calcium 8.9 mg/dL (8.5-10.3) 07/20/20 05:06 Total Bilirubin 0.6 mg/dL (0.2-1.0) 07/19/20 18:40 AST 17 IU/L (10-42) 07/19/20 18:40 ALT 18 IU/L (10-60) 07/19/20 18:40 Alkaline Phosphatase 77 IU/L (42-121) 07/19/20 18:40 Total Protein 7.1 g/dL (6.7-8.2) 07/19/20 18:40 Albumin 4.3 g/dL (3.2-5.5) 07/19/20 18:40 Globulin 2.8 g/dL (2.1-4.2) 07/19/20 18:40 Albumin/Globulin Ratio 1.5 (1.0-2.2) 07/19/20 18:40 Lipase 115 U/L (22-51) H 07/19/20 18:40 Urine Color YELLOW 07/19/20 19:13 Urine Clarity CLEAR (CLEAR) 07/19/20 19:13 Urine pH 6.0 PH (5.0-7.5) 07/19/20 19:13 Ur Specific [place] 1.025 (1.002-1.030) 07/19/20 19:13 Urine Protein NEGATIVE mg/dL (NEGATIVE) 07/19/20 19:13 Urine Glucose (UA) NEGATIVE mg/dL (NEGATIVE) 07/19/20 19:13 Urine Ketones NEGATIVE mg/dL (NEGATIVE) 07/19/20 19:13 Urine Occult Blood NEGATIVE (NEGATIVE) 07/19/20 19:13 Urine Nitrite NEGATIVE (NEGATIVE) 07/19/20 19:13 Urine Bilirubin NEGATIVE (NEGATIVE) 07/19/20 19:13 Urine Urobilinogen 0.2 (NORMAL) E.U./dL (NORMAL) 07/19/20 19:13 Ur Leukocyte Esterase NEGATIVE (NEGATIVE) 07/19/20 19:13 Ur Microscopic Review NOT INDICATED 07/19/20 19:13 Urine Culture Comments NOT INDICATED 07/19/20 19:13 Nasal Adenovirus (PCR) NOT DETECTED 07/19/20 23:21 Nasal B. parapertussis DNA (PCR) NOT DETECTED 07/19/20 23:21 Nasal Coronavir 229E PCR NOT DETECTED 07/19/20 23:21 Nasal Coronavir HKU1 PCR NOT DETECTED 07/19/20 23:21 Nasal Coronavir NL63 PCR NOT DETECTED 07/19/20 23:21 Nasal Coronavir OC43 PCR NOT DETECTED 07/19/20 23:21 Nasal Enterovir/Rhinovir PCR NOT DETECTED 07/19/20 23:21 Nasal Influenza B PCR NOT DETECTED 07/19/20 23:21 Nasal Influenza A PCR NOT DETECTED 07/19/20 23:21 Nasal Parainfluen 1 PCR NOT DETECTED 07/19/20 23:21 Nasal Parainfluen 2 PCR NOT DETECTED 07/19/20 23:21 Nasal Parainfluen 3 PCR NOT DETECTED 07/19/20 23:21 Nasal Parainfluen 4 PCR NOT DETECTED 07/19/20 23:21 Nasal RSV (PCR) NOT DETECTED 07/19/20 23:21 Nasal B.pertussis DNA PCR NOT DETECTED 07/19/20 23:21 Nasal C.pneumoniae (PCR) NOT DETECTED 07/19/20 23:21 [place] Human Metapneumo PCR NOT DETECTED 07/19/20 23:21 Nasal M.pneumoniae (PCR) NOT DETECTED 07/19/20 23:21 Nasal SARS-CoV-2 (PCR) NOT DETECTED 07/19/20 23:21 - Procedures Procedures: Procedures CATARAC PHACOEMULS/ASPIR (05/29/13) COLONOSCOPY (03/14/13) ESOPHAGOGASTRODUODENOSCOPY [EGD] W/CLOSED BIOPSY (01/24/13) EXCISION OF LOWER ESOPHAGUS, ENDO, DIAGN (03/20/19) EXCISION OF STOMACH, ENDO, DIAGN (03/20/19) INSERT LENS AT CATAR EXT (05/29/13)
--- NOTE | 2020-07-20 16:32 | CONSULTATION NOTE ---
Referring Provider Name of Referring Provider:: Jonel Samaniego Consult Date: 07/20/20 Chief Complaint - Chief Complaint Chief Complaint: Abdominal pain History of Present Illness - Admitted From Admitted From:: ED - History Obtained From Records Reviewed: Provider's notes History obtained from: Patient and providers Exam Limitations: None - History of Present Illness HPI Comment/Other: Juan David is a justina 80-year-old gentleman who is known to me from prior admissions for colonoscopy. He has a history of chronic anemia. He presented to the emergency room last evening after experiencing acute epigastric abdominal pain after a meal. He had a CT scan at that time that showed a large paraesophageal hernia and possible gastric volvulus. An NG tube was placed, his stomach decompressed, and his pain resolved. His hemoglobin has dropped slightly overn ight. This is possibly due to hydration. He is understandably concerned. He hasBeen n.p.o. all day but denies any nausea currently. He reports that his abdomen feels fine now but reiterates that it was a very scary episode.He has never had an EGD. He was not aware that he had a paraesophageal hernia. He is never had a similar episode. History - Past Medical History Cardiovascular: reports: Hypertension, High cholesterol Respiratory: reports: Sleep apnea, CPAP use Neuro: reports: None Endocrine/Autoimmune: reports: HyPOthyroidism GI: reports: GERD : reports: Benign prostate hypertrophy HEENT: reports: Chronic hearing loss Psych: reports: None Musculoskeletal: reports: Osteoarthritis Derm: reports: None MRSA Hx?: No - Past Surgical History General: reports: Colonoscopy Ortho: reports: Knee replacement (right), Rotator cuff repair - Family & Social History Family History: Mother: CAD, Father: Cancer Family History Comment/Other: pt report his father from advanced prostate cancer, his mother from heart attack. He has two children who are healthy. Social History Notes: He denies cigarette smoking, alcohol and drug issue. - POLST Patient has POLST: No POLST Status: Full Code Meds/Allgy - Home Medications Home Medications: Ambulatory Orders Medication Instructions Recorded Confirmed Tamsulosin [Flomax] 0.4 mg PO DAILY 01/24/13 03/21/19 Atorvastatin Calcium 20 mg PO DAILY 04/07/17 03/21/19 Fluticasone Propionate [Flovent 1 spray NS BID 04/07/17 03/21/19 Diskus] Multivitamin [Multiple Vitamins] 1 each PO DAILY 03/20/19 03/21/19 Acetaminophen 325 - 650 mg PO Q6H PRN MDD 8 tabs 03/21/19 03/21/19 / 24hrs Melatonin 5 mg PO QPM PRN 03/21/19 03/21/19 polyethylene glycoL 3350 [Miralax] 17 gm PO DAILY 03/21/19 03/21/19 Levothyroxine [Synthroid] 125 mcg PO DAILY 07/20/20 Omeprazole 20 mg PO BID 07/20/20 - Allergies Allergies/Adverse Reactions: Allergies Allergy/AdvReac Type Severity Reaction Status Date / Time No Known Drug Allergies Allergy Verified 07/19/20 18:16 Review of Systems - Constitutional Constitutional: denies: Fatigue, Fever, Chills, Malaise, Poor appetite - Eyes Eyes: denies: Pain, Irritation - Ears, Nose & Throat Ears, Nose & Throat: denies: Tinnitus, Vertigo - Cardiovascular Cariovascular: denies: Irregular heart rate, Palpitations - Respiratory Respiratory: denies: Cough, Sputum production - Gastrointestinal Gastrointestinal: denies: Abdominal pain, Abdominal distention, Change in bowel habits, Black stools, Bloody stools, Nausea, Vomiting - Genitourinary Genitourinary: denies: Dysuria, Frequency - Musculoskeletal Musculoskeletal: denies: Muscle pain, Back pain - Integumentary Integumentary: denies: Rash - All Other Systems All Other Systems: reports: Reviewed and negative Exam - Vital Signs Reviewed Vital Signs: Yes Vital Signs: Vital Signs x48h Temp Pulse Resp BP Pulse Ox 07/20/20 16:14 36.9 C 50 L 18 171/60 H 100 07/20/20 11:35 36.7 C 52 L 18 147/68 H 96 - Physical Exam General Appearance: positive: No acute distress, Alert Eyes Bilateral: positive: Normal inspection, PERRL, EOMI ENT: positive: ENT inspection nml, Pharynx nml Neck: positive: Nml inspection, Trachea midline Respiratory: positive: Chest non-tender, No respiratory distress, Breath sounds nml, Other (Audible bowel sounds within the chest) Cardiovascular: positive: Regular rate & rhythm Peripheral Pulses: positive: 0 Abdomen: positive: Non-tender, Nml bowel sounds, No distention. negative: Guarding, Rebound Skin: positive: Color nml Extremities: positive: Non-tender Neurologic/Psychiatric: positive: Oriented x3 Conclusion and Plan - Lab Results Laboratory Results 07/20/20 05:06: Sodium 138, Potassium 3.8, Chloride 104, Carbon Dioxide 27, Anion Gap 7.0, BUN 17, Creatinine 0.8, Estimated GFR (MDRD) 93, Glucose 122 H, Calcium 8.9 07/20/20 05:06: WBC 6.2, RBC 3.78 L, Hgb 8.3 L, Hct 30.3 L, MCV 80.2, MCH 22.0 L, MCHC 27.4 L, RDW 18.7 H, Plt Count 219, MPV 9.0, Neut # (Auto) 4.4, Lymph # (Auto) 1.1 L, [place] # (Auto) 0.6, Eos # (Auto) 0.1, Baso # (Auto) 0.1, Absolute Nucleated RBC 0.00, Nucleated RBC % 0.0, Manual Slide Review Indicated, Platelet Estimate NORMAL (130-450,000), Platelet Morphology NORMAL APPEARANCE, RBC Morph Micro Appear 2+ HYPOCHROMASIA 07/19/20 23:21: Nasal Adenovirus (PCR) NOT DETECTED, Nasal B. parapertussis DNA (PCR) NOT DETECTED, Nasal Coronavir 229E PCR NOT DETECTED, Nasal Coronavir HKU1 PCR NOT DETECTED, Nasal Coronavir NL63 PCR NOT DETECTED, Nasal Coronavir OC43 PCR NOT DETECTED, Nasal Enterovir/Rhinovir PCR NOT DETECTED, Nasal Influenza B PCR NOT DETECTED, Nasal Influenza A PCR NOT DETECTED, Nasal Parainfluen 1 PCR NOT DETECTED, Nasal Parainfluen 2 PCR NOT DETECTED, Nasal Parainfluen 3 PCR NOT DETECTED, Nasal Parainfluen 4 PCR NOT DETECTED, Nasal RSV (PCR) NOT DETECTED, Nasal B.pertussis DNA PCR NOT DETECTED, Nasal C.pneumoniae (PCR) NOT DETECTED, [place] Human Metapneumo PCR NOT DETECTED, Nasal M.pneumoniae (PCR) NOT DETECTED, Nasal SARS-CoV-2 (PCR) NOT DETECTED 07/19/20 19:13: Urine Color YELLOW, Urine Clarity CLEAR, Urine pH 6.0, Ur Specific [place] 1.025, Urine Protein NEGATIVE, Urine Glucose (UA) NEGATIVE, Ur ine Ketones NEGATIVE, Urine Occult Blood NEGATIVE, Urine Nitrite NEGATIVE, Urine Bilirubin NEGATIVE, Urine Urobilinogen 0.2 (NORMAL), Ur Leukocyte Esterase NEGATIVE, Ur Microscopic Review NOT INDICATED, Urine Culture Comments NOT INDICATED 07/19/20 18:40: Sodium 138, Potassium 3.8, Chloride 101, Carbon Dioxide 28, Anion Gap 9.0, BUN 22 H, Creatinine 0.9, Estimated GFR (MDRD) 81 L, Glucose 127 H, Calcium 9.2, Total Bilirubin 0.6, AST 17, ALT 18, Alkaline Phosphatase 77, Total Protein 7.1, Albumin 4.3, Globulin 2.8, Albumin/Globulin Ratio 1.5, Lipase 115 H 07/19/20 18:40: PT 12.0, INR 1.1 07/19/20 18:40: WBC 6.8, RBC 4.36 L, Hgb 9.5 L, Hct 35.7 L, MCV 81.9, MCH 21.8 L, MCHC 26.6 L, RDW 18.6 H, Plt Count 266, MPV 9.3, Neut # (Auto) 6.1, Lymph # (Auto) 0.3 L, [place] # (Auto) 0.3, Eos # (Auto) 0.0, Baso # (Auto) 0.0, Absolute Nucleated RBC 0.00, Nucleated RBC % 0.0, Manual Slide Review Indicated, Platelet Estimate NORMAL (130-450,000), Platelet Morphology NORMAL APPEARANCE, RBC Morph Micro Appear 1+ HYPOCHROMASIA - Diagnostic Imaging Results Diagnostic Imaging Results Comments: CT scan consistent with gastric volvulus and gastric obstruction - Diagnosis Diagnosis: Large paraesophageal hernia with gastric volvulus - Plan Plan: Acute symptoms have resolved. The episode is quite concerning and the patient may very well benefit from gastropexy. I discussed it briefly with him today and he is very open to the idea of the procedure. I recommended that we begin our evaluation with an EGD to be done tomorrow by Dr. Orellana. He is happy with this plan. For the evening, he will have a full liquid diet and then n.p.o. after midnight in preparation for his procedure in the morning.Additional recommendations following the EGD.
[2020-07-21] MEDS: SODIUM CHLORIDE FLUSH 0.9% 10 ML SYRINGE IVP SCH ×3 (02:29→17:30)
[2020-07-21 05:48] LABS: BASOPHILS % (AUTO) 0.7 %; EOSINOPHILS # (AUTO) 0.1 10^3/uL (0.0-0.7); EOSINOPHILS % (AUTO) 2.1 %; HGB - HEMOGLOBIN 8.4 g/dL (14.0-18.0); LYMPHOCYTES # (AUTO) 1.1 10^3/uL (1.5-3.5); LYMPHOCYTES % (AUTO) 19.9 %; MEAN CORPUSCULAR HEMOGLOBIN 21.8 pg (27.0-31.0); MEAN CORPUSCULAR HGB CONC 26.6 g/dL (32.0-36.0); MEAN CORPUSCULAR VOLUME 82.1 fL (80.0-94.0); MEAN PLATELET VOLUME 9.3 fL (7.4-11.4); MONOCYTES # (AUTO) 0.6 10^3/uL (0.0-1.0); MONOCYTES % (AUTO) 10.8 %; NEUTROPHILS # (AUTO) 3.8 10^3/uL (1.5-6.6); NEUTROPHILS % (AUTO) 66.2 %; PLT - PLATELET COUNT 222 10^3/uL (130-450); RED BLOOD COUNT 3.85 10^6/uL (4.70-6.10); RED CELL DISTRIBUTION WIDTH 19.1 % (12.0-15.0); WHITE BLOOD COUNT 5.7 x10^3/uL (4.8-10.8)
[2020-07-21 05:59] LABS: CALCIUM 8.5 mg/dL (8.5-10.3); CREATININE 0.9 mg/dL (0.6-1.2)
[2020-07-21] MEDS: D5.45NS W/20 MEQ KCL 1,000 ML IV SCH ×2 (06:05→14:44)
[2020-07-21] MEDS: PANTOPRAZOLE 40 MG VIAL IVP SCH (06:05)
[2020-07-21 06:11] LABS: PLATELET ESTIMATE, MANUAL NORMAL (130-450,000) (NORMAL); PLATELET MORPHOLOGY NORMAL APPEARANCE (NORMAL)
[2020-07-21] MEDS ORDERED: D5.45NS W/20 MEQ KCL 1,000 ML IV SCH (08:14)
[2020-07-21 08:23] LABS: ABSOLUTE RETICS # AUTO 0.046 10^6/uL (0.020-0.110); RED BLOOD COUNT 3.81 10^6/uL (4.70-6.10)
[2020-07-21 09:27] LABS: FERRITIN 6.3 ng/mL (23.9-336.2)
[2020-07-21 09:36] LABS: % IRON SATURATION 5 % (20-50); IRON 22 ug/dL (45-182); TOTAL IRON BINDING CAPACITY 400 ug/dL (250-450); TRANSFERRIN 286 mg/dL (180-329)
--- NOTE | 2020-07-21 10:34 | ANESTHESIA ---
Pre-Anesthesia VS, & Labs - Diagnosis Diagnosis Large paraesophageal hernia with gastric volvulus - Procedure EGD with biopsies Vital Signs: Temp Pulse Resp BP Pulse Ox 36.3 C L 55 L 20 151/67 H 97 07/21/20 07:48 07/21/20 07:48 07/21/20 07:48 07/21/20 07:48 07/21/20 07:48 Height: 5 ft 8 in Weight (kg): 82 kg Body Mass Index: 27.4 BMI Classification: Overweight - NPO >8 hours - Lab Results Current Lab Results: Laboratory Tests 07/21/20 05:12: Lactate Dehydrogenase 120 07/21/20 05:12: Ferritin 6.3 L, Vitamin B12 874 07/21/20 05:12: Iron 22 L, TIBC 400, % Saturation 5 L, Transferrin 286 07/21/20 05:12: RBC 3.81 L, Reticulocyte % (Auto) 1.20, Absolute Retic 0.046 07/21/20 05:12: Sodium 139, Potassium 4.0, Chloride 107, Carbon Dioxide 26, Anion Gap 6.0, BUN 10, Creatinine 0.9, Estimated GFR (MDRD) 81 L, Glucose 107 H, Calcium 8.5 07/21/20 05:12: WBC 5.7, RBC 3.85 L, Hgb 8.4 L, Hct 31.6 L, MCV 82.1, MCH 21.8 L , MCHC 26.6 L, RDW 19.1 H, Plt Count 222, MPV 9.3, Neut # (Auto) 3.8, Lymph # (Auto) 1.1 L, [place] # (Auto) 0.6, Eos # (Auto) 0.1, Baso # (Auto) 0.0, Absolute Nucleated RBC 0.00, Nucleated RBC % 0.0, Manual Slide Review Indicated, WBC Morphology NORMAL APPEARANCE, Platelet Estimate NORMAL (130-450,000), Platelet Morphology NORMAL APPEARANCE, RBC Morph Micro Appear 1+ HYPOCHROMASIA 07/20/20 05:06: Sodium 138, Potassium 3.8, Chloride 104, Carbon Dioxide 27, Anion Gap 7.0, BUN 17, Creatinine 0.8, Estimated GFR (MDRD) 93, Glucose 122 H, Calcium 8.9 07/20/20 05:06: WBC 6.2, RBC 3.78 L, Hgb 8.3 L, Hct 30.3 L, MCV 80.2, MCH 22.0 L , MCHC 27.4 L, RDW 18.7 H, Plt Count 219, MPV 9.0, Neut # (Auto) 4.4, Lymph # (Auto) 1.1 L, [place] # (Auto) 0.6, Eos # (Auto) 0.1, Baso # (Auto) 0.1, Absolute Nucleated RBC 0.00, Nucleated RBC % 0.0, Manual Slide Review Indicated, Platelet Estimate NORMAL (130-450,000), Platelet Morphology NORMAL APPEARANCE, RBC Morph Micro Appear 2+ HYPOCHROMASIA 07/19/20 18:40: Sodium 138, Potassium 3.8, Chloride 101, Carbon Dioxide 28, Anion Gap 9.0, BUN 22 H, Creatinine 0.9, Estimated GFR (MDRD) 81 L, Glucose 127 H, Calcium 9.2, Total Bilirubin 0.6, AST 17, ALT 18, Alkaline Phosphatase 77, Total Protein 7.1, Albumin 4.3, Globulin 2.8, Albumin/Globulin Ratio 1.5, Lipase 115 H 07/19/20 18:40: PT 12.0, INR 1.1 07/19/20 18:40: WBC 6.8, RBC 4.36 L, Hgb 9.5 L, Hct 35.7 L, MCV 81.9, MCH 21.8 L , MCHC 26.6 L, RDW 18.6 H, Plt Count 266, MPV 9.3, Neut # (Auto) 6.1, Lymph # (Auto) 0.3 L, [place] # (Auto) 0.3, Eos # (Auto) 0.0, Baso # (Auto) 0.0, Absolute Nucleated RBC 0.00, Nucleated RBC % 0.0, Manual Slide Review Indicated, Platelet Estimate NORMAL (130-450,000), Platelet Morphology NORMAL APPEARANCE, RBC Morph Micro Appear 1+ HYPOCHROMASIA Fish Bones: 07/21/20 05:12 07/21/20 05:12 Home Medications and Allergies Home Medications: Ambulatory Orders Levothyroxine [Synthroid] 125 mcg PO DAILY 07/20/20 Omeprazole 20 mg PO BID 07/20/20 Active Medications Potassium Chloride/Dextrose/Sod Cl (D5.45ns W/20 Meq Kcl) 1,000 mls @ 83.3 mls/hr IV .Q12H1M [facility] Stop: 07/22/20 08:14 Last Admin: 07/21/20 10:04 Dose: 83.3 mls/hr Documented by: Pantoprazole Sodium (Pantoprazole 40 Mg Vial) 40 mg IVP QDAC ADRIAN Last Admin: 07/21/20 06:05 Dose: 40 mg Documented by: Phenol/Menthol (Phenol Throat [place] 177 Ml) 2 sprays MM Q2HR PRN PRN Reason: Throat Pain Last Admin: 07/20/20 14:35 Dose: 2 sprays Documented by: Sodium Chloride (Sodium Chloride Flush 0.9% 10 Ml Syringe) 10 ml IVP PRN PRN PRN Reason: NEEDED PER PROVIDER ORDERS Last Admin: 07/20/20 06:31 Dose: 10 ml Documented by: Sodium Chloride (Sodium Chloride Flush 0.9% 10 Ml Syringe) 10 ml IVP 0100,0900,1700 [facility] Last Admin: 07/21/20 10:05 Dose: Not Given Documented by: Tamsulosin [Flomax] 0.4 mg PO DAILY 01/24/13 Atorvastatin Calcium 20 mg PO DAILY 04/07/17 Fluticasone Propionate [Flovent Diskus] 1 spray NS BID 04/07/17 Multivitamin [Multiple Vitamins] 1 each PO DAILY 03/20/19 Acetaminophen 325 - 650 mg PO Q6H PRN MDD 8 tabs / 24hrs 03/21/19 Melatonin 5 mg PO QPM PRN 03/21/19 polyethylene glycoL 3350 [Miralax] 17 gm PO DAILY 03/21/19 Levothyroxine [Synthroid] 125 mcg PO DAILY 07/20/20 Omeprazole 20 mg PO BID 07/20/20 Allergies/Adverse Reactions: Allergies Allergy/AdvReac Type Severity Reaction Status Date / Time No Known Drug Allergies Allergy Verified 07/19/20 18:16 Anes History & Medical History - Anesthetic History Anesthesia Complications: reports: No previous complications - Medical History Cardiovascular: reports: Hypertension, High cholesterol Pulmonary: reports: Sleep apnea, CPAP use Gastrointestinal: reports: GERD Urinary: reports: Benign prostate hypertrophy Neuro: reports: None Musculoskeletal: reports: Osteoarthritis Endocrine/Autoimmune: reports: HyPOthyroidism Blood Disorders: reports: Anemia Skin: reports: None Smoking Status: Never smoker Psychosocial: reports: No issues indicated History of Cancer?: No - Surgical History General: Colonoscopy Urologic: Penile implant Orthopedic: Knee replacement (right), Rotator cuff repair Exam General: Alert, Oriented x3, Cooperative, No acute distress Dental: WNL Mouth Openin Fingerbreadth Neck Mobility: Normal Mallampati classification: II Thyromental Distance: 4-6 cm Mental/Cognitive Status: Alert/Oriented X3, Normal for patient Plan Anesthesia Type: MAC Consent for Procedure(s) Verified and Reviewed: Yes Code Status: Attempt Resuscitation ASA classification: 2-Mild systemic disease Is this case an emergency?: No
[2020-07-21] MEDS ORDERED: PROPOFOL 500 MG/50 ML 500 MG/50 ML VIAL ONE (13:14)
[2020-07-21] MEDS ORDERED: MIDAZOLAM 2 MG/2 ML VIAL ONE (13:16)
[2020-07-21] MEDS ORDERED: fentaNYL 100 MCG/2 ML VIAL ONE (13:16)
--- NOTE | 2020-07-21 13:43 | ANESTHESIA POST OP EVALUATION ---
Anesthesia Post Eval - Post Anesthesia Eval Vitals: Last Vital Signs Temp 36.3 C L 07/21/20 11:12 Pulse 53 L 07/21/20 11:12 Resp 18 07/21/20 11:12 BP 133/66 H 07/21/20 11:12 Pulse Ox 100 07/21/20 11:12 CV Function Including HR & BP: positive: Stable Pain Control: positive: Satisfactory Nausea & Vomiting: positive: Negative Mental Status: positive: Baseline Respiratory Status: Airway Patent Hydration Status: Satisfactory Anesthesia Complications: positive: None
--- NOTE | 2020-07-21 13:56 | PROVIDER PROGRESS NOTE ---
Progress Note 80-year-old male presenting with Gastric volvulus and outlet obstruction. Please see CT scan findings below. Patient was indicated for upper endoscopy to evaluate for any leak point or other pathology. Upper endoscopy findings are as below: 1. Large hiatal hernia with extensive bilious contents 2. Antrum appreciated and pylorus traversed, normal duodenal mucosa with no duodenitis or other complication; random biopsy obtained 3. Diffuse gastric inflammatory changes likely secondary to reflux as well as r ecurrent volvulus and herniation; no mass lesions appreciated. Random biopsy obtained. 4. 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 No ischemic changes and no active bleeding/hemorrhage 5. GE junction normal biopsied. CT abdomen pelvis impression: 1. There is a large paraesophageal hiatal hernia. The gastric antrum and superior to the gastric cardia is situated within the thorax. The proximal stomach is distended with air-fluid level. The CT findings consistent with gastric volvulus and gastric obstruction. 2. Infiltrate in the lingula suspicious for pneumonia. 3. Bibasilar atelectasis. Recommendations and plan plan going forward is as follows: 1. Continue with PPI for acid suppression 2. Continue with bowel rest as the patient is high risk for aspiration given recurrent volvulus; this also carries with it risk for aspiration as well in the setting of outlet obstruction 3. Preoperative risk stratification and medical optimization 4. Plan laparoscopic gastropexy with gastrostomy tube placement as well
--- NOTE | 2020-07-21 14:40 | PROVIDER PROGRESS NOTE ---
Assessment/Plan - Problem List (1) Gastric outlet obstruction Assessment/Plan: Patient denies abdominal pain, denies nausea or vomiting. Patient finished EGD the procedure, called the surgeon and discussed care plan. NO gastric ischemic change or gastric hemorrhage, or mass/lesion were found in EGD, random biopsy obtained. Surgeon Plan to have laparoscopic gastropexy with gastrostomy tube placement For patient on tomorrow. pt's INR is 1.1. Continue NPO, intravenous IV fluids, Continue PPI Continue laboratory and vital signs monitor Discussed the care plan with the patient, answer patient questions. (2) Paraesophageal hernia Assessment/Plan: The entire stomach was in thorax, per imaging. Patient had a EGD done on today, Surgeon plan to have Procedure for patient tomorrow Continue PPI, Continue NPO (3)preoperative assessment Patient Denies any cardiac medical history, EKG show sinus bradycardia, heart rate between 50-60. Patient has no cardiac medications in the home meds list. pt denies hx of CHF, CVA. Andrea criteria revised cardiac risk index 0.4%, at this point optimization for procedure. (4) Gastric volvulus Assessment/Plan: Patient denies abdominal pain, denies nausea or vomiting. Surgeon Plan to have laparoscopic gastropexy with gastrostomy tube placement For patient on tomorrow. (5) Anemia Patient has history of chronic anemia, Hemoglobin 8.4 on today. Anemia study show patient had iron deficiency, We will replace of iron (6) BPH (benign prostatic hyperplasia) Assessment/Plan: On tamsulosin 0.4 mg p.o. daily (7) HLD (hyperlipidemia) Assessment/Plan: On atorvastatin 20 mg p.o. daily. (8) Hypothyroidism Assessment/Plan: Resume levothyroxine 125 mcg p.o. daily, We will check TSH (9) Sleep apnea Assessment/Plan: On CPAP - Current Meds Current Meds: Current Medications Generic Name Dose Route Start Last Admin Trade Name Freq PRN Reason Stop Dose Admin Pantoprazole Sodium 40 mg 07/20/20 07:00 07/21/20 06:05 Pantoprazole 40 Mg Vial IVP 40 mg QDAC ADRIAN Administration Phenol/Menthol 2 sprays 07/20/20 06:32 07/20/20 14:35 Phenol Throat [place] 177 Ml MM 2 sprays Q2HR PRN Administration Throat Pain Sodium Chloride 10 ml 07/19/20 22:42 07/20/20 06:31 Sodium Chloride Flush 0.9% 10 Ml Syringe IVP 10 ml PRN PRN Administration NEEDED PER PROVIDER ORDERS Sodium Chloride 10 ml 07/20/20 01:00 07/21/20 10:05 Sodium Chloride Flush 0.9% 10 Ml Syringe IVP Not Given 0100,0900,1700 ADRIAN - Lab Result Fish Bone Diagrams: 07/21/20 05:12 07/21/20 05:12 - Additional Planning My Orders: My Active Orders 07/21/20 14:20 TSH [THYROID STIMULATING HORMONE] [IAI] Routine 07/21/20 14:26 D5.45ns W/20 Meq KCl 1,000 ml IV 100 mls/hr 07/21/20 15:00 Levothyroxine [Synthroid] 125 mcg PO QDAC 07/22/20 08:00 Ferrous Gluconate [Fergon] 324 mg PO DAILYWM 07/22/20 09:00 Tamsulosin [Flomax] 0.4 mg PO DAILY Subjective - Subjective Patient Reports: Feeling Better Objective Vital Signs: Vital Signs - 24 hr 07/20/20 07/20/20 07/20/20 16:14 16:33 21:00 Temperature 36.9 C 36.5 C Heart Rate [ 50 L 58 L 55 L Brachial] Respiratory 18 18 Rate Blood Pressure 171/60 H 146/57 H 161/64 H [Right Brachial artery] O2 Saturation 100 100 07/21/20 07/21/20 07/21/20 00:25 03:35 07:48 Temperature 36.8 C 36.6 C 36.3 C L Heart Rate [ 51 L 54 L 55 L Brachial] Respiratory 20 18 20 Rate Blood Pressure 141/74 H 149/69 H 151/67 H [Right Brachial artery] O2 Saturation 96 95 97 07/21/20 07/21/20 07/21/20 11:12 13:33 13:43 Temperature 36.3 C L 36.3 C L 36.3 C L Heart Rate [ 53 L 49 L 51 L Brachial] Respiratory 18 18 18 Rate Blood Pressure 133/66 H 154/56 H 150/58 H [Right Brachial artery] O2 Saturation 100 100 97 07/21/20 14:10 Temperature Heart Rate [ 48 L Brachial] Respiratory 18 Rate Blood Pressure 135/54 H [Right Brachial artery] O2 Saturation 95 Oxygen O2 Source Room air I&O (Last 24 Hrs): Intake and Output Totals x24h 07/19/20 07/20/20 07/21/20 23:59 23:59 23:59 Intake Total 3198.75 1500 Output Total 500 Balance 2698.75 1500 General: Alert, Oriented x3, Cooperative, No acute distress HEENT: Atraumatic Neck: Supple Lymphatic: no adenopathy Neuro: Alert, Non Focal, Oriented Times 3 Cardiovascular: Regular rate, Normal S1, Normal S2 Respiratory: Chest non-tender, No respiratory distress, Breath sounds nml Abdomen: Normal bowel sounds, Soft, No tenderness Extremities: Normal pulses - Results Results: Laboratory Results WBC 5.7 x10^3/uL (4.8-10.8) 07/21/20 05:12 RBC 3.81 10^6/uL (4.70-6.10) L 07/21/20 05:12 RBC 3.85 10^6/uL (4.70-6.10) L 07/21/20 05:12 Hgb 8.4 g/dL (14.0-18.0) L 07/21/20 05:12 Hct 31.6 % (42.0-52.0) L 07/21/20 05:12 MCV 82.1 fL (80.0-94.0) 07/21/20 05:12 MCH 21.8 pg (27.0-31.0) L 07/21/20 05:12 MCHC 26.6 g/dL (32.0-36.0) L 07/21/20 05:12 RDW 19.1 % (12.0-15.0) H 07/21/20 05:12 Plt Count 222 10^3/uL (130-450) 07/21/20 05:12 MPV 9.3 fL (7.4-11.4) 07/21/20 05:12 Reticulocyte % (Auto) 1.20 % (0.5-2.3) 07/21/20 05:12 Neut # (Auto) 3.8 10^3/uL (1.5-6.6) 07/21/20 05:12 Lymph # (Auto) 1.1 10^3/uL (1.5-3.5) L 07/21/20 05:12 [place] # (Auto) 0.6 10^3/uL (0.0-1.0) 07/21/20 05:12 Eos # (Auto) 0.1 10^3/uL (0.0-0.7) 07/21/20 05:12 Baso # (Auto) 0.0 10^3/uL (0.0-0.1) 07/21/20 05:12 Absolute Nucleated RBC 0.00 x10^3/uL 07/21/20 05:12 Nucleated RBC % 0.0 /100WBC 07/21/20 05:12 Manual Slide Review Indicated 07/21/20 05:12 WBC Morphology NORMAL APPEARANCE (NORMAL) 07/21/20 05:12 Platelet Estimate NORMAL (130-450,000) (NORMAL) 07/21/20 05:12 Platelet Morphology NORMAL APPEARANCE (NORMAL) 07/21/20 05:12 RBC Morph Micro Appear 1+ ANISOCYTOSIS (NORMAL) 1+ HYPOCHROMASIA (NORMAL) 07/21/20 05:12 RBC Morph Micro Appear 1+ ANISOCYTOSIS (NORMAL) 1+ HYPOCHROMASIA (NORMAL) 07/21/20 05:12 Absolute Retic 0.046 10^6/uL (0.020-0.110) 07/21/20 05:12 PT 12.0 secs (9.9-12.6) 07/19/20 18:40 INR 1.1 (0.8-1.2) 07/19/20 18:40 Sodium 139 mmol/L (135-145) 07/21/20 05:12 Potassium 4.0 mmol/L (3.5-5.0) 07/21/20 05:12 Chloride 107 mmol/L (101-111) 07/21/20 05:12 Carbon Dioxide 26 mmol/L (21-32) 07/21/20 05:12 Anion Gap 6.0 (6-13) 07/21/20 05:12 BUN 10 mg/dL (6-20) 07/21/20 05:12 Creatinine 0.9 mg/dL (0.6-1.2) 07/21/20 05:12 Estimated GFR (MDRD) 81 (>89) L 07/21/20 05:12 Glucose 107 mg/dL (70-100) H 07/21/20 05:12 Calcium 8.5 mg/dL (8.5-10.3) 07/21/20 05:12 Iron 22 ug/dL (45-182) L 07/21/20 05:12 TIBC 400 ug/dL (250-450) 07/21/20 05:12 % Saturation 5 % (20-50) L 07/21/20 05:12 Transferrin 286 mg/dL (180-329) 07/21/20 05:12 Ferritin 6.3 ng/mL (23.9-336.2) L 07/21/20 05:12 Total Bilirubin 0.6 mg/dL (0.2-1.0) 07/19/20 18:40 AST 17 IU/L (10-42) 07/19/20 18:40 ALT 18 IU/L (10-60) 07/19/20 18:40 Alkaline Phosphatase 77 IU/L (42-121) 07/19/20 18:40 Lactate Dehydrogenase 120 IU/L (91-225) 07/21/20 05:12 Total Protein 7.1 g/dL (6.7-8.2) 07/19/20 18:40 Albumin 4.3 g/dL (3.2-5.5) 07/19/20 18:40 Globulin 2.8 g/dL (2.1-4.2) 07/19/20 18:40 Albumin/Globulin Ratio 1.5 (1.0-2.2) 07/19/20 18:40 Lipase 115 U/L (22-51) H 07/19/20 18:40 Vitamin B12 874 pg/mL (180-914) 07/21/20 05:12 Urine Color YELLOW 07/19/20 19:13 Urine Clarity CLEAR (CLEAR) 07/19/20 19:13 Urine pH 6.0 PH (5.0-7.5) 07/19/20 19:13 Ur Specific [place] 1.025 (1.002-1.030) 07/19/20 19:13 Urine Protein NEGATIVE mg/dL (NEGATIVE) 07/19/20 19:13 Urine Glucose (UA) NEGATIVE mg/dL (NEGATIVE) 07/19/20 19:13 Urine Ketones NEGATIVE mg/dL (NEGATIVE) 07/19/20 19:13 Urine Occult Blood NEGATIVE (NEGATIVE) 07/19/20 19:13 Urine Nitrite NEGATIVE (NEGATIVE) 07/19/20 19:13 Urine Bilirubin NEGATIVE (NEGATIVE) 07/19/20 19:13 Urine Urobilinogen 0.2 (NORMAL) E.U./dL (NORMAL) 07/19/20 19:13 Ur Leukocyte Esterase NEGATIVE (NEGATIVE) 07/19/20 19:13 Ur Microscopic Review NOT INDICATED 07/19/20 19:13 Urine Culture Comments NOT INDICATED 07/19/20 19:13 Nasal Adenovirus (PCR) NOT DETECTED 07/19/20 23:21 Nasal B. parapertussis DNA (PCR) NOT DETECTED 07/19/20 23:21 Nasal Coronavir 229E PCR NOT DETECTED 07/19/20 23:21 Nasal Coronavir HKU1 PCR NOT DETECTED 07/19/20 23:21 Nasal Coronavir NL63 PCR NOT DETECTED 07/19/20 23:21 Nasal Coronavir OC43 PCR NOT DETECTED 07/19/20 23:21 Nasal Enterovir/Rhinovir PCR NOT DETECTED 07/19/20 23:21 Nasal Influenza B PCR NOT DETECTED 07/19/20 23:21 Nasal Influenza A PCR NOT DETECTED 07/19/20 23:21 Nasal Parainfluen 1 PCR NOT DETECTED 07/19/20 23:21 Nasal Parainfluen 2 PCR NOT DETECTED 07/19/20 23:21 Nasal Parainfluen 3 PCR NOT DETECTED 07/19/20 23:21 Nasal Parainfluen 4 PCR NOT DETECTED 07/19/20 23:21 Nasal RSV (PCR) NOT DETECTED 07/19/20 23:21 Nasal B.pertussis DNA PCR NOT DETECTED 07/19/20 23:21 Nasal C.pneumoniae (PCR) NOT DETECTED 07/19/20 23:21 [place] Human Metapneumo PCR NOT DETECTED 07/19/20 23:21 Nasal M.pneumoniae (PCR) NOT DETECTED 07/19/20 23:21 Nasal SARS-CoV-2 (PCR) NOT DETECTED 07/19/20 23:21 - Procedures Procedures: Procedures CATARAC PHACOEMULS/ASPIR (05/29/13) COLONOSCOPY (03/14/13) ESOPHAGOGASTRODUODENOSCOPY [EGD] W/CLOSED BIOPSY (01/24/13) EXCISION OF LOWER ESOPHAGUS, ENDO, DIAGN (03/20/19) EXCISION OF STOMACH, ENDO, DIAGN (03/20/19) INSERT LENS AT CATAR EXT (05/29/13) Sepsis Event Note (H) - Evaluation Current Stage of Sepsis: Ruled out ABX Reporting Has patient been on IV antibiotics over the past 48 hours?: No Current Medications - Current Medications Current Medications: Active Medications Ferrous Gluconate (Ferrous Gluconate 324 Mg Tablet) 324 mg PO DAILYWM [facility] Potassium Chloride/Dextrose/Sod Cl (D5.45ns W/20 Meq Kcl) 1,000 mls @ 100 mls/h r IV .Q10H [facility] Stop: 07/22/20 10:25 Last Admin: 07/21/20 14:44 Dose: 100 mls/hr Documented by: Levothyroxine Sodium (Levothyroxine 125 Mcg Tablet) 125 mcg PO QDAC [facility] Last Admin: 07/21/20 14:48 Dose: 125 mcg Documented by: Pantoprazole Sodium (Pantoprazole 40 Mg Vial) 40 mg IVP QDAC [facility] Last Admin: 07/21/20 06:05 Dose: 40 mg Documented by: Phenol/Menthol (Phenol Throat [place] 177 Ml) 2 sprays MM Q2HR PRN PRN Reason: Throat Pain Last Admin: 07/20/20 14:35 Dose: 2 sprays Documented by: Sodium Chloride (Sodium Chloride Flush 0.9% 10 Ml Syringe) 10 ml IVP PRN PRN PRN Reason: NEEDED PER PROVIDER ORDERS Last Admin: 07/20/20 06:31 Dose: 10 ml Documented by: Sodium Chloride (Sodium Chloride Flush 0.9% 10 Ml Syringe) 10 ml IVP 0100,0900,1700 [facility] Last Admin: 07/21/20 10:05 Dose: Not Given Documented by: Tamsulosin HCl (Tamsulosin 0.4 Mg Capsule) 0.4 mg PO DAILY [facility] Tamsulosin [Flomax] 0.4 mg PO DAILY 01/24/13 Atorvastatin Calcium 20 mg PO DAILY 04/07/17 Fluticasone Propionate [Flovent Diskus] 1 spray NS BID 04/07/17 Multivitamin [Multiple Vitamins] 1 each PO DAILY 03/20/19 Acetaminophen 325 - 650 mg PO Q6H PRN MDD 8 tabs / 24hrs 03/21/19 Melatonin 5 mg PO QPM PRN 03/21/19 polyethylene glycoL 3350 [Miralax] 17 gm PO DAILY 03/21/19 Levothyroxine [Synthroid] 125 mcg PO DAILY 07/20/20 Omeprazole 20 mg PO BID 07/20/20
[2020-07-21] MEDS: LEVOTHYROXINE 125 MCG TABLET PO SCH (14:48)
[2020-07-21 20:03] LABS: PHOSPHORUS 3.8 mg/dL (2.5-4.6)
[2020-07-22] MEDS: D5.45NS W/20 MEQ KCL 1,000 ML IV SCH (01:04)
[2020-07-22] MEDS: SODIUM CHLORIDE FLUSH 0.9% 10 ML SYRINGE IVP SCH ×3 (01:05→16:02)
[2020-07-22] MEDS: PANTOPRAZOLE 40 MG VIAL IVP SCH (06:12)
[2020-07-22] MEDS: LEVOTHYROXINE 125 MCG TABLET PO SCH (06:12)
[2020-07-22 06:28] LABS: BASOPHILS # (AUTO) 0.1 10^3/uL (0.0-0.1); BASOPHILS % (AUTO) 0.9 %; EOSINOPHILS # (AUTO) 0.2 10^3/uL (0.0-0.7); EOSINOPHILS % (AUTO) 2.9 %; HGB - HEMOGLOBIN 9.1 g/dL (14.0-18.0); LYMPHOCYTES # (AUTO) 0.8 10^3/uL (1.5-3.5); LYMPHOCYTES % (AUTO) 14.2 %; MEAN CORPUSCULAR HEMOGLOBIN 22.1 pg (27.0-31.0); MEAN CORPUSCULAR HGB CONC 27.7 g/dL (32.0-36.0); MEAN PLATELET VOLUME 9.4 fL (7.4-11.4); MONOCYTES # (AUTO) 0.6 10^3/uL (0.0-1.0); NEUTROPHILS # (AUTO) 3.9 10^3/uL (1.5-6.6); NEUTROPHILS % (AUTO) 71.8 %; PLT - PLATELET COUNT 230 10^3/uL (130-450); RED BLOOD COUNT 4.11 10^6/uL (4.70-6.10); RED CELL DISTRIBUTION WIDTH 18.6 % (12.0-15.0); WHITE BLOOD COUNT 5.5 x10^3/uL (4.8-10.8)
[2020-07-22 06:39] LABS: CALCIUM 8.9 mg/dL (8.5-10.3); CREATININE 0.8 mg/dL (0.6-1.2)
[2020-07-22] MEDS: TAMSULOSIN 0.4 MG CAPSULE PO SCH (10:27)
[2020-07-22] MEDS: FERROUS GLUCONATE 324 MG TABLET PO SCH (10:27)
--- NOTE | 2020-07-22 11:48 | ANESTHESIA ---
Pre-Anesthesia VS, & Labs - Diagnosis Diagnosis Large paraesophageal hernia with gastric volvulus - Procedure Laparoscopic gastrostomy/gastropexy Vital Signs: Temp Pulse Resp BP Pulse Ox 36.7 C 51 L 20 148/54 H 98 07/22/20 08:30 07/22/20 08:30 07/22/20 08:30 07/22/20 08:30 07/22/20 08:30 Height: 5 ft 8 in Weight (kg): 82 kg Body Mass Index: 27.4 BMI Classification: Overweight - NPO >8 hours - Lab Results Current Lab Results: Laboratory Tests 07/22/20 06:00: Sodium 138, Potassium 4.0, Chloride 108, Carbon Dioxide 24, Anion Gap 6.0, BUN 10, Creatinine 0.8, Estimated GFR (MDRD) 93, Glucose 111 H, Calcium 8.9 07/22/20 06:00: WBC 5.5, RBC 4.11 L, Hgb 9.1 L, Hct 32.9 L, MCV 80.0, MCH 22.1 L , MCHC 27.7 L, RDW 18.6 H, Plt Count 230, MPV 9.4, Neut # (Auto) 3.9, Lymph # (Auto) 0.8 L, [place] # (Auto) 0.6, Eos # (Auto) 0.2, Baso # (Auto) 0.1, Absolute Nucleated RBC 0.00, Nucleated RBC % 0.0 07/21/20 19:43: Troponin I High Sens 4.0 07/21/20 19:43: Phosphorus 3.8, Magnesium 2.0 07/21/20 05:12: TSH 3.46 07/21/20 05:12: Lactate Dehydrogenase 120 07/21/20 05:12: Ferritin 6.3 L, Vitamin B12 874 07/21/20 05:12: Iron 22 L, TIBC 400, % Saturation 5 L, Transferrin 286 07/21/20 05:12: RBC 3.81 L, Reticulocyte % (Auto) 1.20, Absolute Retic 0.046 07/21/20 05:12: Sodium 139, Potassium 4.0, Chloride 107, Carbon Dioxide 26, Anion Gap 6.0, BUN 10, Creatinine 0.9, Estimated GFR (MDRD) 81 L, Glucose 107 H, Calcium 8.5 07/21/20 05:12: WBC 5.7, RBC 3.85 L, Hgb 8.4 L, Hct 31.6 L, MCV 82.1, MCH 21.8 L , MCHC 26.6 L, RDW 19.1 H, Plt Count 222, MPV 9.3, Neut # (Auto) 3.8, Lymph # (Auto) 1.1 L, [place] # (Auto) 0.6, Eos # (Auto) 0.1, Baso # (Auto) 0.0, Absolute Nucleated RBC 0.00, Nucleated RBC % 0.0, Manual Slide Review Indicated, WBC Morphology NORMAL APPEARANCE, Platelet Estimate NORMAL (130-450,000), Platelet Morphology NORMAL APPEARANCE, RBC Morph Micro Appear 1+ HYPOCHROMASIA 07/20/20 05:06: Sodium 138, Potassium 3.8, Chloride 104, Carbon Dioxide 27, Anion Gap 7.0, BUN 17, Creatinine 0.8, Estimated GFR (MDRD) 93, Glucose 122 H, Calcium 8.9 07/20/20 05:06: WBC 6.2, RBC 3.78 L, Hgb 8.3 L, Hct 30.3 L, MCV 80.2, MCH 22.0 L , MCHC 27.4 L, RDW 18.7 H, Plt Count 219, MPV 9.0, Neut # (Auto) 4.4, Lymph # (Auto) 1.1 L, [place] # (Auto) 0.6, Eos # (Auto) 0.1, Baso # (Auto) 0.1, Absolute Nucleated RBC 0.00, Nucleated RBC % 0.0, Manual Slide Review Indicated, Platelet Estimate NORMAL (130-450,000), Platelet Morphology NORMAL APPEARANCE, RBC Morph Micro Appear 2+ HYPOCHROMASIA 07/19/20 18:40: Sodium 138, Potassium 3.8, Chloride 101, Carbon Dioxide 28, Anion Gap 9.0, BUN 22 H, Creatinine 0.9, Estimated GFR (MDRD) 81 L, Glucose 127 H, Calcium 9.2, Total Bilirubin 0.6, AST 17, ALT 18, Alkaline Phosphatase 77, Total Protein 7.1, Albumin 4.3, Globulin 2.8, Albumin/Globulin Ratio 1.5, Lipase 115 H 07/19/20 18:40: PT 12.0, INR 1.1 07/19/20 18:40: WBC 6.8, RBC 4.36 L, Hgb 9.5 L, Hct 35.7 L, MCV 81.9, MCH 21.8 L , MCHC 26.6 L, RDW 18.6 H, Plt Count 266, MPV 9.3, Neut # (Auto) 6.1, Lymph # (Auto) 0.3 L, [place] # (Auto) 0.3, Eos # (Auto) 0.0, Baso # (Auto) 0.0, Absolute N ucleated RBC 0.00, Nucleated RBC % 0.0, Manual Slide Review Indicated, Platelet Estimate NORMAL (130-450,000), Platelet Morphology NORMAL APPEARANCE, RBC Morph Micro Appear 1+ HYPOCHROMASIA Fish Bones: 07/22/20 06:00 07/22/20 06:00 Home Medications and Allergies Home Medications: Ambulatory Orders Levothyroxine [Synthroid] 125 mcg PO DAILY 07/20/20 Omeprazole 20 mg PO BID 07/20/20 Active Medications Ferrous Gluconate (Ferrous Gluconate 324 Mg Tablet) 324 mg PO DAILYWM [facility] Last Admin: 07/22/20 10:27 Dose: 324 mg Documented by: Levothyroxine Sodium (Levothyroxine 125 Mcg Tablet) 125 mcg PO QDAC [facility] Last Admin: 07/22/20 06:12 Dose: 125 mcg Documented by: Pantoprazole Sodium (Pantoprazole 40 Mg Vial) 40 mg IVP QDAC [facility] Last Admin: 07/22/20 06:12 Dose: 40 mg Documented by: Phenol/Menthol (Phenol Throat [place] 177 Ml) 2 sprays MM Q2HR PRN PRN Reason: Throat Pain Last Admin: 07/20/20 14:35 Dose: 2 sprays Documented by: Sodium Chloride (Sodium Chloride Flush 0.9% 10 Ml Syringe) 10 ml IVP PRN PRN PRN Reason: NEEDED PER PROVIDER ORDERS Last Admin: 07/20/20 06:31 Dose: 10 ml Documented by: Sodium Chloride (Sodium Chloride Flush 0.9% 10 Ml Syringe) 10 ml IVP 0 100,0900,1700 [facility] Last Admin: 07/22/20 10:27 Dose: 10 ml Documented by: Tamsulosin HCl (Tamsulosin 0.4 Mg Capsule) 0.4 mg PO DAILY [facility] Last Admin: 07/22/20 10:27 Dose: 0.4 mg Documented by: Tamsulosin [Flomax] 0.4 mg PO DAILY 01/24/13 Atorvastatin Calcium 20 mg PO DAILY 04/07/17 Fluticasone Propionate [Flovent Diskus] 1 spray NS BID 04/07/17 Multivitamin [Multiple Vitamins] 1 each PO DAILY 03/20/19 Acetaminophen 325 - 650 mg PO Q6H PRN MDD 8 tabs / 24hrs 03/21/19 Melatonin 5 mg PO QPM PRN 03/21/19 polyethylene glycoL 3350 [Miralax] 17 gm PO DAILY 03/21/19 Levothyroxine [Synthroid] 125 mcg PO DAILY 07/20/20 Omeprazole 20 mg PO BID 07/20/20 Allergies/Adverse Reactions: Allergies Allergy/AdvReac Type Severity Reaction Status Date / Time No Known Drug Allergies Allergy Verified 07/19/20 18:16 Anes History & Medical History - Anesthetic History Family history of Anesthesia Complications: Denies Family history of Malignant Hyperthermia: Denies - Medical History Cardiovascular: reports: Hypertension, High cholesterol Pulmonary: reports: Sleep apnea, CPAP use Gastrointestinal: reports: GERD Urinary: reports: Benign prostate hypertrophy Neuro: reports: None Musculoskeletal: reports: Osteoarthritis Endocrine/Autoimmune: reports: HyPOthyroidism Blood Disorders: reports: Anemia Skin: reports: None Smoking Status: Never smoker Psychosocial: reports: No issues indicated History of Cancer?: No - Surgical History General: Colonoscopy Urologic: Penile implant Orthopedic: Knee replacement (right), Rotator cuff repair Exam General: Oriented x3, Cooperative Dental: WNL Mouth Openin Fingerbreadth Neck Mobility: Normal Mallampati classification: II Thyromental Distance: 4-6 cm Respiratory: Lungs clear, Normal breath sounds, No respiratory distress Cardiovascular: Regular rate Neurological: Normal speech Mental/Cognitive Status: Alert/Oriented X3, Normal for patient Cognitive Status: Within normal limits Plan Anesthesia Type: General Consent for Procedure(s) Verified and Reviewed: Yes Code Status: Attempt Resuscitation ASA classification: 2-Mild systemic disease Is this case an emergency?: No
[2020-07-22] MEDS ORDERED: ATROPINE ABBOJECT 1 MG/10 ML SYRINGE IVP PRN (11:56)
[2020-07-22] MEDS ORDERED: METOCLOPRAMIDE 10 MG/2 ML VIAL IVP PRN (11:56)
[2020-07-22] MEDS ORDERED: ONDANSETRON 4 MG/2 ML VIAL IVP PRN (11:56)
[2020-07-22] MEDS ORDERED: HYDROmorphone 0.5 MG/0.5 ML SYRINGE IVP PRN (11:56)
[2020-07-22] MEDS ORDERED: NALOXONE 0.4 MG/ML VIAL IVP PRN (11:56)
[2020-07-22] MEDS ORDERED: fentaNYL 100 MCG/2 ML VIAL IVP PRN (11:56)
[2020-07-22] MEDS ORDERED: MORPHINE 2 MG/ML CARPUJECT IVP PRN (11:56)
[2020-07-22] MEDS ORDERED: ePHEDrine 50 MG/ML VIAL IVP PRN (11:56)
[2020-07-22] MEDS ORDERED: LACTATED RINGERS 1,000 ML IV SCH (12:00)
[2020-07-22] MEDS ORDERED: DEXAMETHASONE 4 MG/ML VIAL ONE (12:36)
[2020-07-22] MEDS ORDERED: LIDOCAINE-MPF 2% 5 ML VIAL ONE (12:36)
[2020-07-22] MEDS ORDERED: ROCURONIUM 50 MG/5 ML VIAL ONE (12:36)
[2020-07-22] MEDS ORDERED: fentaNYL 100 MCG/2 ML VIAL ONE (12:36)
[2020-07-22] MEDS ORDERED: KETOROLAC 30 MG/ML VIAL ONE (12:36)
[2020-07-22] MEDS ORDERED: ONDANSETRON 4 MG/2 ML VIAL ONE (12:36)
[2020-07-22] MEDS ORDERED: PROPOFOL 200 MG/20 ML VIAL IVP ONE (12:36)
[2020-07-22] MEDS ORDERED: BUPIVACAINE 0.5% PF 30 ML VIAL ONE (12:56)
[2020-07-22] MEDS ORDERED: ceFAZolin 1 GM VIAL ONE (13:40)
[2020-07-22] MEDS ORDERED: ePHEDrine 50 MG/ML VIAL IVP ONE (13:44)
[2020-07-22] MEDS ORDERED: BUPIVACAINE 0.5% PF 30 ML VIAL INFIL ONE (13:44)
--- NOTE | 2020-07-22 14:05 | PROVIDER PROGRESS NOTE ---
Assessment/Plan - Problem List (1) Gastric outlet obstruction Assessment/Plan: 07/22 Patient denies abdominal pain, nausea or vomiting. Patient plan to have laparoscopic gastropexy with gastrostomy tube placement By GI surgeon at this afternoon, We will follow-up, And will start s/p surgery care. Patient has history of sinus bradycardia, heart rate is above 50, patient is asymptomatic, patient denied dizziness, shortness of breathing, chest pain. Patient denies abdominal pain, denies nausea or vomiting. Patient finished EGD the procedure, called the surgeon and discussed care plan. NO gastric ischemic change or gastric hemorrhage, or mass/lesion were found in EGD, random biopsy obtained. Surgeon Plan to have laparoscopic gastropexy with gastrostomy tube placement For patient on tomorrow. pt's INR is 1.1. Continue NPO, intravenous IV fluids, Continue PPI Continue laboratory and vital signs monitor Discussed the care plan with the patient, answer patient questions. (2) Paraesophageal hernia Assessment/Plan: 07/22 Patient will have surgery this afternoon, will follow up The entire stomach was in thorax, per imaging. Patient had a EGD done on today, Surgeon plan to have Procedure for patient tomorrow Continue PPI, Continue NPO (3)preoperative assessment Patient Denies any cardiac medical history, EKG show sinus bradycardia, heart rate between 50-60. Patient has no cardiac medications in the home meds list. pt denies hx of CHF, CVA. Andrea criteria revised cardiac risk index 0.4%, at this point optimization for procedure. (4) Gastric volvulus Assessment/Plan: Patient denies abdominal pain, denies nausea or vomiting. Surgeon Plan to have laparoscopic gastropexy with gastrostomy tube placement For patient on tomorrow. (5) Anemia / Hemoglobin 9.1 and improved. iron anemia study show patient has iron deficiency, patient prescribed iron pill Patient has history of chronic anemia, Hemoglobin 8.4 on today. Anemia study show patient had iron deficiency, We will replace of iron (6) BPH (benign prostatic hyperplasia) Assessment/Plan: On tamsulosin 0.4 mg p.o. daily (7) HLD (hyperlipidemia) Assessment/Plan: On atorvastatin 20 mg p.o. daily. (8) Hypothyroidism Assessment/Plan: Resume levothyroxine 125 mcg p.o. daily, We will check TSH (9) Sleep apnea Assessment/Plan: On CPAP (10) sinus bradycardia Patient report he had history of sinus bradycardia, but the patient reported he never had any symptoms. His heart rate is above 50.Patient denies any cardiac hi story. - Current Meds Current Meds: Current Medications Generic Name Dose Route Start Last Admin Trade Name Terrellq PRN Reason Stop Dose Admin Ferrous Gluconate 324 mg 07/22/20 08:00 07/22/20 10:27 Ferrous Gluconate 324 Mg Tablet PO 324 mg DAILYWM ADRIAN Administration Lactated Ringer's 1,000 mls @ 100 mls/hr 07/22/20 12:00 07/22/20 12:25 Lr IV 07/22/20 21:59 100 mls/hr .Q10H ADRIAN Administration Levothyroxine Sodium 125 mcg 07/21/20 15:00 07/22/20 06:12 Levothyroxine 125 Mcg Tablet PO 125 mcg QDAC ADRIAN Administration Pantoprazole Sodium 40 mg 07/20/20 07:00 07/22/20 06:12 Pantoprazole 40 Mg Vial IVP 40 mg QDAC ADRIAN Administration Phenol/Menthol 2 sprays 07/20/20 06:32 07/20/20 14:35 Phenol Throat [place] 177 Ml MM 2 sprays Q2HR PRN Administration Throat Pain Sodium Chloride 10 ml 07/19/20 22:42 07/20/20 06:31 Sodium Chloride Flush 0.9% 10 Ml Syringe IVP 10 ml PRN PRN Administration NEEDED PER PROVIDER ORDERS Sodium Chloride 10 ml 07/20/20 01:00 07/22/20 10:27 Sodium Chloride Flush 0.9% 10 Ml Syringe IVP 10 ml 0100,0900,1700 ADRIAN Administration Tamsulosin HCl 0.4 mg 07/22/20 09:00 07/22/20 10:27 Tamsulosin 0.4 Mg Capsule PO 0.4 mg DAILY ADRIAN Administration - Lab Result Fish Bone Diagrams: 07/22/20 06:00 07/22/20 06:00 - Additional Planning My Orders: My Active Orders 07/21/20 15:00 Levothyroxine [Synthroid] 125 mcg PO QDAC 07/22/20 08:00 Ferrous Gluconate [Fergon] 324 mg PO DAILYWM 07/22/20 09:00 Tamsulosin [Flomax] 0.4 mg PO DAILY Subjective - Subjective Patient Reports: Feeling Better Objective Vital Signs: Vital Signs - 24 hr 07/21/20 07/21/20 07/21/20 14:10 14:30 16:30 Temperature 36.2 C L Heart Rate [ 48 L 89 45 L Brachial] Respiratory 18 18 16 Rate Blood Pressure 135/54 H 147/64 H 158/58 H [Right Brachial artery] O2 Saturation 95 100 99 07/21/20 07/21/20 07/22/20 18:30 21:32 01:00 Temperature 36.2 C L 36.2 C L 36.6 C Heart Rate [ 50 L 46 L 45 L Brachial] Respiratory 20 20 20 Rate Blood Pressure 153/65 H 164/70 H 146/69 H [Right Brachial artery] O2 Saturation 100 99 97 07/22/20 07/22/20 07/22/20 06:00 08:30 12:31 Temperature 36.4 C L 36.7 C 36.6 C Heart Rate [ 54 L 51 L 51 L Brachial] Respiratory 16 20 18 Rate Blood Pressure 148/74 H 148/54 H 150/70 H [Right Brachial artery] O2 Saturation 96 98 98 Oxygen O2 Source Room air I&O (Last 24 Hrs): Intake and Output Totals x24h 07/20/20 07/21/20 07/22/20 23:59 23:59 23:59 Intake Total 3198.75 1661.26 1999 Output Total 500 Balance 2698.75 1661.26 1999 General: Alert, Oriented x3, Cooperative, No acute distress HEENT: Atraumatic Neck: Supple Lymphatic: no adenopathy Neuro: Alert, Non Focal, Oriented Times 3 Cardiovascular: Regular rate, Normal S1, Normal S2 Respiratory: Chest non-tender, No respiratory distress, Breath sounds nml Abdomen: Normal bowel sounds, Soft, No tenderness Extremities: Normal pulses - Results Results: Laboratory Results WBC 5.5 x10^3/uL (4.8-10.8) 07/22/20 06:00 RBC 4.11 10^6/uL (4.70-6.10) L 07/22/20 06:00 Hgb 9.1 g/dL (14.0-18.0) L 07/22/20 06:00 Hct 32.9 % (42.0-52.0) L 07/22/20 06:00 MCV 80.0 fL (80.0-94.0) 07/22/20 06:00 MCH 22.1 pg (27.0-31.0) L 07/22/20 06:00 MCHC 27.7 g/dL (32.0-36.0) L 07/22/20 06:00 RDW 18.6 % (12.0-15.0) H 07/22/20 06:00 Plt Count 230 10^3/uL (130-450) 07/22/20 06:00 MPV 9.4 fL (7.4-11.4) 07/22/20 06:00 Reticulocyte % (Auto) 1.20 % (0.5-2.3) 07/21/20 05:12 Neut # (Auto) 3.9 10^3/uL (1.5-6.6) 07/22/20 06:00 Lymph # (Auto) 0.8 10^3/uL (1.5-3.5) L 07/22/20 06:00 [place] # (Auto) 0.6 10^3/uL (0.0-1.0) 07/22/20 06:00 Eos # (Auto) 0.2 10^3/uL (0.0-0.7) 07/22/20 06:00 Baso # (Auto) 0.1 10^3/uL (0.0-0.1) 07/22/20 06:00 Absolute Nucleated RBC 0.00 x10^3/uL 07/22/20 06:00 Nucleated RBC % 0.0 /100WBC 07/22/20 06:00 Manual Slide Review Indicated 07/21/20 05:12 WBC Morphology NORMAL APPEARANCE (NORMAL) 07/21/20 05:12 Platelet Estimate NORMAL (130-450,000) (NORMAL) 07/21/20 05:12 Platelet Morphology NORMAL APPEARANCE (NORMAL) 07/21/20 05:12 RBC Morph Micro Appear 1+ ANISOCYTOSIS (NORMAL) 1+ HYPOCHROMASIA (NORMAL) 07/21/20 05:12 RBC Morph Micro Appear 1+ ANISOCYTOSIS (NORMAL) 1+ HYPOCHROMASIA (NORMAL) 07/21/20 05:12 Absolute Retic 0.046 10^6/uL (0.020-0.110) 07/21/20 05:12 PT 12.0 secs (9.9-12.6) 07/19/20 18:40 INR 1.1 (0.8-1.2) 07/19/20 18:40 Sodium 138 mmol/L (135-145) 07/22/20 06:00 Potassium 4.0 mmol/L (3.5-5.0) 07/22/20 06:00 Chloride 108 mmol/L (101-111) 07/22/20 06:00 Carbon Dioxide 24 mmol/L (21-32) 07/22/20 06:00 Anion Gap 6.0 (6-13) 07/22/20 06:00 BUN 10 mg/dL (6-20) 07/22/20 06:00 Creatinine 0.8 mg/dL (0.6-1.2) 07/22/20 06:00 Estimated GFR (MDRD) 93 (>89) 07/22/20 06:00 Glucose 111 mg/dL (70-100) H 07/22/20 06:00 Calcium 8.9 mg/dL (8.5-10.3) 07/22/20 06:00 Phosphorus 3.8 mg/dL (2.5-4.6) 07/21/20 19:43 Magnesium 2.0 mg/dL (1.7-2.8) 07/21/20 19:43 Iron 22 ug/dL (45-182) L 07/21/20 05:12 TIBC 400 ug/dL (250-450) 07/21/20 05:12 % Saturation 5 % (20-50) L 07/21/20 05:12 Transferrin 286 mg/dL (180-329) 07/21/20 05:12 Ferritin 6.3 ng/mL (23.9-336.2) L 07/21/20 05:12 Total Bilirubin 0.6 mg/dL (0.2-1.0) 07/19/20 18:40 AST 17 IU/L (10-42) 07/19/20 18:40 ALT 18 IU/L (10-60) 07/19/20 18:40 Alkaline Phosphatase 77 IU/L (42-121) 07/19/20 18:40 Lactate Dehydrogenase 120 IU/L (91-225) 07/21/20 05:12 Troponin I High Sens 4.0 ng/L (2.3-19.7) 07/21/20 19:43 Total Protein 7.1 g/dL (6.7-8.2) 07/19/20 18:40 Albumin 4.3 g/dL (3.2-5.5) 07/19/20 18:40 Globulin 2.8 g/dL (2.1-4.2) 07/19/20 18:40 Albumin/Globulin Ratio 1.5 (1.0-2.2) 07/19/20 18:40 Lipase 115 U/L (22-51) H 07/19/20 18:40 Vitamin B12 874 pg/mL (180-914) 07/21/20 05:12 TSH 3.46 uIU/mL (0.34-5.60) 07/21/20 05:12 Urine Color YELLOW 07/19/20 19:13 Urine Clarity CLEAR (CLEAR) 07/19/20 19:13 Urine pH 6.0 PH (5.0-7.5) 07/19/20 19:13 Ur Specific [place] 1.025 (1.002-1.030) 07/19/20 19:13 Urine Protein NEGATIVE mg/dL (NEGATIVE) 07/19/20 19:13 Urine Glucose (UA) NEGATIVE mg/dL (NEGATIVE) 07/19/20 19:13 Urine Ketones NEGATIVE mg/dL (NEGATIVE) 07/19/20 19:13 Urine Occult Blood NEGATIVE (NEGATIVE) 07/19/20 19:13 Urine Nitrite NEGATIVE (NEGATIVE) 07/19/20 19:13 Urine Bilirubin NEGATIVE (NEGATIVE) 07/19/20 19:13 Urine Urobilinogen 0.2 (NORMAL) E.U./dL (NORMAL) 07/19/20 19:13 Ur Leukocyte Esterase NEGATIVE (NEGATIVE) 07/19/20 19:13 Ur Microscopic Review NOT INDICATED 07/19/20 19:13 Urine Culture Comments NOT INDICATED 07/19/20 19:13 Nasal Adenovirus (PCR) NOT DETECTED 07/19/20 23:21 Nasal B. parapertussis DNA (PCR) NOT DETECTED 07/19/20 23:21 Nasal Coronavir 229E PCR NOT DETECTED 07/19/20 23:21 Nasal Coronavir HKU1 PCR NOT DETECTED 07/19/20 23:21 Nasal Coronavir NL63 PCR NOT DETECTED 07/19/20 23:21 Nasal Coronavir OC43 PCR NOT DETECTED 07/19/20 23:21 Nasal Enterovir/Rhinovir PCR NOT DETECTED 07/19/20 23:21 Nasal Influenza B PCR NOT DETECTED 07/19/20 23:21 Nasal Influenza A PCR NOT DETECTED 07/19/20 23:21 Nasal Parainfluen 1 PCR NOT DETECTED 07/19/20 23:21 Nasal Parainfluen 2 PCR NOT DETECTED 07/19/20 23:21 Nasal Parainfluen 3 PCR NOT DETECTED 07/19/20 23:21 Nasal Parainfluen 4 PCR NOT DETECTED 07/19/20 23:21 Nasal RSV (PCR) NOT DETECTED 07/19/20 23:21 Nasal B.pertussis DNA PCR NOT DETECTED 07/19/20 23:21 Nasal C.pneumoniae (PCR) NOT DETECTED 07/19/20 23:21 [place] Human Metapneumo PCR NOT DETECTED 07/19/20 23:21 Nasal M.pneumoniae (PCR) NOT DETECTED 07/19/20 23:21 Nasal SARS-CoV-2 (PCR) NOT DETECTED 07/19/20 23:21 - Procedures Procedures: Procedures CATARAC PHACOEMULS/ASPIR (05/29/13) COLONOSCOPY (03/14/13) ESOPHAGOGASTRODUODENOSCOPY [EGD] W/CLOSED BIOPSY (01/24/13) EXCISION OF LOWER ESOPHAGUS, ENDO, DIAGN (03/20/19) EXCISION OF STOMACH, ENDO, DIAGN (03/20/19) INSERT LENS AT CATAR EXT (05/29/13) Sepsis Event Note (H) - Evaluation Current Stage of Sepsis: Ruled out ABX Reporting Has patient been on IV antibiotics over the past 48 hours?: No Current Medications - Current Medications Current Medications: Active Medications Atropine Sulfate (Atropine Abboject 1 Mg/10 Ml Syringe) 0.5 mg IVP Q5M PRN PRN Reason: Bradycardia Stop: 07/23/20 11:56 Ephedrine Sulfate (Ephedrine 50 Mg/Ml Vial) 10 mg IVP Q5M PRN PRN Reason: HYPOTENSION Stop: 07/23/20 11:56 Fentanyl (Fentanyl 100 Mcg/2 Ml Vial) 25 - 50 mcg IVP Q5M PRN PRN Reason: BREAKTHROUGH PAIN (2nd Choice) Stop: 07/23/20 11:56 Ferrous Gluconate (Ferrous Gluconate 324 Mg Tablet) 324 mg PO DAILYWM ADRIAN Last Admin: 07/22/20 10:27 Dose: 324 mg Documented by: Hydromorphone HCl (Hydromorphone 0.5 Mg/0.5 Ml Syringe) 0.2 - 0.6 mg IVP Q5M PRN PRN Reason: PAIN (First Choice) Stop: 07/23/20 11:56 Lactated Ringer's (Lr) 1,000 mls @ 100 mls/hr IV .Q10H [facility] Stop: 07/22/20 21:59 Last Admin: 07/22/20 12:25 Dose: 100 mls/hr Documented by: Levothyroxine Sodium (Levothyroxine 125 Mcg Tablet) 125 mcg PO QDAC [facility] Last Admin: 07/22/20 06:12 Dose: 125 mcg Documented by: Metoclopramide HCl (Metoclopramide 10 Mg/2 Ml Vial) 10 mg IVP Q6HR PRN PRN Reason: N/V not relieved by Zofran Morphine Sulfate (Morphine 2 Mg/Ml Carpuject) 2 - 4 mg IVP Q5M PRN PRN Reason: PAIN (3rd Choice) Stop: 07/23/20 11:56 Naloxone HCl (Naloxone 0.4 Mg/Ml Vial) 0.1 mg IVP Q2M PRN PRN Reason: RESP RATE <8 Stop: 07/23/20 11:56 Ondansetron HCl (Ondansetron 4 Mg/2 Ml Vial) 4 mg IVP ONCE PRN PRN Reason: N/V (First Choice) Stop: 07/23/20 11:56 Pantoprazole Sodium (Pantoprazole 40 Mg Vial) 40 mg IVP QDAC [facility] Last Admin: 07/22/20 06:12 Dose: 40 mg Documented by: Phenol/Menthol (Phenol Throat [place] 177 Ml) 2 sprays MM Q2HR PRN PRN Reason: Throat Pain Last Admin: 07/20/20 14:35 Dose: 2 sprays Documented by: Sodium Chloride (Sodium Chloride Flush 0.9% 10 Ml Syringe) 10 ml IVP PRN PRN PRN Reason: NEEDED PER PROVIDER ORDERS Last Admin: 07/20/20 06:31 Dose: 10 ml Documented by: Sodium Chloride (Sodium Chloride Flush 0.9% 10 Ml Syringe) 10 ml IVP 0100,0900,1700 [facility] Last Admin: 07/22/20 10:27 Dose: 10 ml Documented by: Tamsulosin HCl (Tamsulosin 0.4 Mg Capsule) 0.4 mg PO DAILY ADRIAN Last Admin: 07/22/20 10:27 Dose: 0.4 mg Documented by: Tamsulosin [Flomax] 0.4 mg PO DAILY 01/24/13 Atorvastatin Calcium 20 mg PO DAILY 04/07/17 Fluticasone Propionate [Flovent Diskus] 1 spray NS BID 04/07/17 Multivitamin [Multiple Vitamins] 1 each PO DAILY 03/20/19 Acetaminophen 325 - 650 mg PO Q6H PRN MDD 8 tabs / 24hrs 03/21/19 Melatonin 5 mg PO QPM PRN 03/21/19 polyethylene glycoL 3350 [Miralax] 17 gm PO DAILY 03/21/19 Levothyroxine [Synthroid] 125 mcg PO DAILY 07/20/20 Omeprazole 20 mg PO BID 07/20/20
[2020-07-22] MEDS ORDERED: SUGAMMADEX 200 MG/2 ML VIAL IVP ONE (14:47)
[2020-07-22] MEDS ORDERED: LACTATED RINGERS 1,000 ML IV ONE (15:20)
--- NOTE | 2020-07-22 15:22 | OPERATIVE REPORT ---
Operative Report - General Admit Date: 07/20/20 Planned Procedure: 1. Diagnostic laparoscopy 2. Laparoscopic assisted gastropexy, sutured 3. Laparoscopic assisted gastrostomy tube placement 4. Other indicated procedures Pre-Op Diagnosis: Large hiatal hernia, gastric volvulus, history of gastric ulceration Procedure Performed: 1. Diagnostic laparoscopy 2. Laparoscopic assisted gastropexy, sutured 3. Laparoscopic assisted gastrostomy tube placement 4. Open umbilical hernia repair 5. Esophagogastroduodenoscopy Post Op Diagnosis: Successful gastropexy, umbilical hernia repair primarily, stomach reduced - Procedure Note Primary Surgeon: Esteban Secondary Surgeon: Stevan Anesthesia Provider: Howie Anesthesia Technique: General ET tube, Local Pathology: None Estimated Blood Loss (mL): 5 Drain/Tube Type: Other (1. Gastrostomy tube 2. Wilson catheter) Indications: 80-year-old male presenting with Gastric volvulus and outlet obstruction. Please see CT scan findings below. Patient was advised after upper endoscopy below the given the size of his defect and his advanced age a definitive repair would carry with it significant risk and he might be most appropriate for ga stropexy assisted laparoscopically and to include a gastrostomy tube. Risk and benefits discussed questions answered informed consent was ultimately obtained. Upper endoscopy findings are as below: 1. Large hiatal hernia with extensive bilious contents 2. Antrum appreciated and pylorus traversed, normal duodenal mucosa with no duodenitis or other complication; random biopsy obtained 3. Diffuse gastric inflammatory changes likely secondary to reflux as well as recurrent volvulus and herniation; no mass lesions appreciated. Random biopsy obtained. 4. 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 No ischemic changes and no active bleeding/hemorrhage 5. GE junction normal biopsied. CT abdomen pelvis impression: 1. There is a large paraesophageal hiatal hernia. The gastric antrum and superior to the gastric cardia is situated within the thorax. The proximal stomach is distended with air-fluid level. The CT findings consistent with gastric volvulus and gastric obstruction. 2. Infiltrate in the lingula suspicious for pneumonia. 3. Bibasilar atelectasis. Findings: 1. Large hiatal hernia in which the entirety of the stomach was noted it was carefully reduced into the intra-abdominal cavity 2. No areas concerning for volvulus or ischemia on reduction of hiatal herniation 3. Successful suture gastropexy within the greater curvature at the level of the greater curvature 4. Successful gastrostomy placement at the level of the antrum 5. Large umbilical hernia repair primarily Complications: None - Other Other Information/Narrative: Final operative report pending.
--- NOTE | 2020-07-22 17:14 | ANESTHESIA POST OP EVALUATION ---
Anesthesia Post Eval - Post Anesthesia Eval Vitals: Last Vital Signs Temp 36.3 C L 07/22/20 16:40 Pulse 56 L 07/22/20 16:40 Resp 20 07/22/20 16:40 BP 146/63 H 07/22/20 16:40 Pulse Ox 96 07/22/20 16:40 CV Function Including HR & BP: positive: Stable Pain Control: positive: Satisfactory Nausea & Vomiting: positive: Negative Mental Status: positive: Baseline Respiratory Status: Airway Patent Hydration Status: Satisfactory Anesthesia Complications: positive: None
[2020-07-22] MEDS: MORPHINE 2 MG/ML CARPUJECT IVP PRN ×2 (19:40→22:49)
[2020-07-23] MEDS: SODIUM CHLORIDE FLUSH 0.9% 10 ML SYRINGE IVP SCH ×4 (00:23→23:51)
[2020-07-23] MEDS: MORPHINE 2 MG/ML CARPUJECT IVP PRN ×4 (05:17→21:10)
[2020-07-23] MEDS: PHENOL THROAT SPRAY 177 ML MM PRN (05:19)
[2020-07-23 05:29] LABS: BASOPHILS % (AUTO) 0.1 %; HGB - HEMOGLOBIN 8.8 g/dL (14.0-18.0); LYMPHOCYTES # (AUTO) 0.8 10^3/uL (1.5-3.5); LYMPHOCYTES % (AUTO) 9.2 %; MEAN CORPUSCULAR HEMOGLOBIN 22.1 pg (27.0-31.0); MEAN CORPUSCULAR VOLUME 78.9 fL (80.0-94.0); MEAN PLATELET VOLUME 9.1 fL (7.4-11.4); MONOCYTES # (AUTO) 0.8 10^3/uL (0.0-1.0); MONOCYTES % (AUTO) 9.5 %; NEUTROPHILS # (AUTO) 6.7 10^3/uL (1.5-6.6); NEUTROPHILS % (AUTO) 80.8 %; PLT - PLATELET COUNT 219 10^3/uL (130-450); RED BLOOD COUNT 3.98 10^6/uL (4.70-6.10); RED CELL DISTRIBUTION WIDTH 18.3 % (12.0-15.0); WHITE BLOOD COUNT 8.3 x10^3/uL (4.8-10.8)
[2020-07-23 05:40] LABS: CALCIUM 8.7 mg/dL (8.5-10.3)
[2020-07-23] MEDS: PANTOPRAZOLE 40 MG VIAL IVP SCH ×2 (05:56→06:00)
[2020-07-23] MEDS: LEVOTHYROXINE 125 MCG TABLET PO SCH ×2 (05:56→06:00)
[2020-07-23] MEDS: FERROUS GLUCONATE 324 MG TABLET PO SCH (07:31)
[2020-07-23] MEDS: TAMSULOSIN 0.4 MG CAPSULE PO SCH (07:32)
[2020-07-23] MEDS ORDERED: ZOLPIDEM 5 MG TABLET PO PRN (07:52)
[2020-07-23] MEDS: ENOXAPARIN 40 MG/0.4 ML SYRINGE SUBQ SCH (08:29)
[2020-07-23] MEDS: SODIUM CHLORIDE FLUSH 0.9% 10 ML SYRINGE IVP PRN (08:30)
[2020-07-23] MEDS ORDERED: FERRIC GLUCONATE 125 MG in SODIUM CHLORIDE 0.9% 100ML 100 ML IV ONE (12:30)
--- NOTE | 2020-07-23 14:58 | PROVIDER PROGRESS NOTE ---
Assessment/Plan - Problem List (1) Gastric outlet obstruction Assessment/Plan: 07/23 Status post of day 1 after surgery. Patient is doing well, Patient denying fever, no significantly abdominal pain. Call surgeon, surgeon agree for advanced patient diet to full liquid diet now, And the surgeon will see the patient. order incentive spirometer. out of bed 4 times of day, Continue pain control 07/22 Patient denies abdominal pain, nausea or vomiting. Patient plan to have laparoscopic gastropexy with gastrostomy tube placement By GI surgeon at this afternoon, We will follow-up, And will start s/p surgery care. Patient has history of sinus bradycardia, heart rate is above 50, patient is asymptomatic, patient denied dizziness, shortness of breathing, chest pain. Patient denies abdominal pain, denies nausea or vomiting. Patient finished EGD the procedure, called the surgeon and discussed care plan. NO gastric ischemic change or gastric hemorrhage, or mass/lesion were found in EGD, random biopsy obtained. Surgeon Plan to have laparoscopic gastropexy with gastrostomy tube placement For patient on tomorrow. pt's INR is 1.1. Continue NPO, intravenous IV fluids, Continue PPI Continue laboratory and vital signs monitor Discussed the care plan with the patient, answer patient questions. (2) Paraesophageal hernia Assessment/Plan: 17,Status post of day 1 after surgery, management as the above 07/22 Patient will have surgery this afternoon, will follow up The entire stomach was in thorax, per imaging. Patient had a EGD done on today, Surgeon plan to have Procedure for patient tomorrow Continue PPI, Continue NPO (3)preoperative assessment Patient Denies any cardiac medical history, EKG show sinus bradycardia, heart rate between 50-60. Patient has no cardiac medications in the home meds list. pt denies hx of CHF, CVA. Andrea criteria revised cardiac risk index 0.4%, at this point optimization for procedure. (4) Gastric volvulus Assessment/Plan: Patient denies abdominal pain, denies nausea or vomiting. Surgeon Plan to have laparoscopic gastropexy with gastrostomy tube placement For patient on tomorrow. (5) Anemia 07/23 order once IV of iron, Since patient just finished Abdominal surgery 07/22 Hemoglobin 9.1 and improved. iron anemia study show patient has iron deficiency, patient prescribed iron pill Patient has history of chronic anemia, Hemoglobin 8.4 on today. Anemia study show patient had iron deficiency, We will replace of iron (6) BPH (benign prostatic hyperplasia) Assessment/Plan: On tamsulosin 0.4 mg p.o. daily (7) HLD (hyperlipidemia) Assessment/Plan: On atorvastatin 20 mg p.o. daily. (8) Hypothyroidism Assessment/Plan: 07/23 TSH was normal, continue home Synthroid Resume levothyroxine 125 mcg p.o. daily, We will check TSH (9) Sleep apnea Assessment/Plan: On CPAP (10) sinus bradycardia 07/23 HR is improved around 60, Asymptomatic, hemodynamically stable Patient report he had history of sinus bradycardia, but the patient reported he never had any symptoms. His heart rate is above 50.Patient denies any cardiac history. - Current Meds Current Meds: Current Medications Generic Name Dose Route Start Last Admin Trade Name Freq PRN Reason Stop Dose Admin Enoxaparin Sodium 40 mg 07/23/20 09:00 07/23/20 08:29 Enoxaparin 40 Mg/0.4 Ml Syringe SUBQ 40 mg DAILY ADRIAN Administration Levothyroxine Sodium 125 mcg 07/21/20 15:00 07/23/20 06:00 Levothyroxine 125 Mcg Tablet PO 125 mcg QDAC ADRIAN Administration Morphine Sulfate 4 mg 07/22/20 19:23 07/23/20 08:30 Morphine 2 Mg/Ml Carpuject IVP 4 mg Q2HR PRN Administration PAIN Phenol/Menthol 2 sprays 07/20/20 06:32 07/23/20 05:19 Phenol Throat [place] 177 Ml MM 2 sprays Q2HR PRN Administration Throat Pain Sodium Chloride 10 ml 07/19/20 22:42 07/23/20 08:30 Sodium Chloride Flush 0.9% 10 Ml Syringe IVP 10 ml PRN PRN Administration NEEDED PER PROVIDER ORDERS Sodium Chloride 10 ml 07/20/20 01:00 07/23/20 07:31 Sodium Chloride Flush 0.9% 10 Ml Syringe IVP 10 ml 0100,0900,1700 ADRIAN Administration Tamsulosin HCl 0.4 mg 07/22/20 09:00 07/23/20 07:32 Tamsulosin 0.4 Mg Capsule PO 0.4 mg DAILY ADRIAN Administration - Lab Result Fish Bone Diagrams: 07/23/20 05:05 07/23/20 05:05 - Additional Planning My Orders: My Active Orders 07/22/20 16:12 Vital Signs - Post-Op [RC] Q30MX2,Q1HX2,Q4H 07/23/20 07:49 Out of bed 4+ hours [RC] QID 07/23/20 07:52 Zolpidem [Ambien] 5 mg PO QPM PRN 07/23/20 09:00 Enoxaparin [Lovenox] 40 mg SUBQ DAILY 07/23/20 Lunch Full Liquid Diet [DIET] 07/24/20 05:00 BMP - BASIC METABOLIC PANEL [CHEM] DAILYLAB CBC - COMP BLD CT W/AUTO DIFF [HEME] DAILYLAB 07/24/20 07:00 Pantoprazole [Protonix] 40 mg PO QDAC 07/25/20 05:00 BMP - BASIC METABOLIC PANEL [CHEM] DAILYLAB CBC - COMP BLD CT W/AUTO DIFF [HEME] DAILYLAB 07/26/20 05:00 BMP - BASIC METABOLIC PANEL [CHEM] DAILYLAB CBC - COMP BLD CT W/AUTO DIFF [HEME] DAILYLAB 07/27/20 05:00 CBC - COMP BLD CT W/AUTO DIFF [HEME] DAILYLAB Subjective - Subjective Patient Reports: Feeling Better Objective Vital Signs: Vital Signs - 24 hr 07/22/20 07/22/20 07/22/20 15:15 15:20 15:25 Temperature 36 C L 36 C L 36 C L Heart Rate 69 62 70 Heart Rate [ Brachial] Respiratory 16 15 20 Rate Blood Pressure 101/48 L 117/50 L 123/51 L Blood Pressure [Right Brachial artery] O2 Saturation 100 100 100 07/22/20 07/22/20 07/22/20 15:30 15:35 16:10 Temperature 36.2 C L 36.2 C L 36.3 C L Heart Rate 69 66 Heart Rate [ 56 L Brachial] Respiratory 11 L 10 L 16 Rate Blood Pressure 128/58 L 134/56 H Blood Pressure 136/53 H [Right Brachial artery] O2 Saturation 95 95 93 07/22/20 07/22/20 07/22/20 16:40 17:10 18:10 Temperature 36.3 C L 36.3 C L 36.3 C L Heart Rate Heart Rate [ 56 L 55 L 66 Brachial] Respiratory 20 24 20 Rate Blood Pressure Blood Pressure 146/63 H 151/64 H 145/64 H [Right Brachial artery] O2 Saturation 96 94 97 07/22/20 07/23/20 07/23/20 19:10 00:18 05:04 Temperature 36.3 C L 36.8 C 36.7 C Heart Rate Heart Rate [ 73 68 59 L Brachial] Respiratory 24 17 18 Rate Blood Pressure Blood Pressure 153/69 H 154/61 H 146/72 H [Right Brachial artery] O2 Saturation 100 98 97 07/23/20 07/23/20 07:36 12:44 Temperature 36.6 C 36.6 C Heart Rate Heart Rate [ 58 L 60 Brachial] Respiratory 18 16 Rate Blood Pressure Blood Pressure 150/68 H 127/64 [Right Brachial artery] O2 Saturation 97 100 Oxygen O2 Source Room air I&O (Last 24 Hrs): Intake and Output Totals x24h 07/21/20 07/22/20 07/23/20 23:59 23:59 23:59 Intake Total 1661.26 4550 1550 Output Total 1650 4135 Balance 1661.26 2900 -2585 General: Alert, Oriented x3, Cooperative, No acute distress HEENT: Atraumatic Neck: Supple Lymphatic: no adenopathy Neuro: Alert, Non Focal, Oriented Times 3 Cardiovascular: Regular rate, Normal S1, Normal S2 Respiratory: Chest non-tender, No respiratory distress Abdomen: Normal bowel sounds, Soft, No tenderness, Other (there is gastrostomy tube put by surgeon) Extremities: Normal pulses - Results Results: Laboratory Results WBC 8.3 x10^3/uL (4.8-10.8) 07/23/20 05:05 RBC 3.98 10^6/uL (4.70-6.10) L 07/23/20 05:05 Hgb 8.8 g/dL (14.0-18.0) L 07/23/20 05:05 Hct 31.4 % (42.0-52.0) L 07/23/20 05:05 MCV 78.9 fL (80.0-94.0) L 07/23/20 05:05 MCH 22.1 pg (27.0-31.0) L 07/23/20 05:05 MCHC 28.0 g/dL (32.0-36.0) L 07/23/20 05:05 RDW 18.3 % (12.0-15.0) H 07/23/20 05:05 Plt Count 219 10^3/uL (130-450) 07/23/20 05:05 MPV 9.1 fL (7.4-11.4) 07/23/20 05:05 Reticulocyte % (Auto) 1.20 % (0.5-2.3) 07/21/20 05:12 Neut # (Auto) 6.7 10^3/uL (1.5-6.6) H 07/23/20 05:05 Lymph # (Auto) 0.8 10^3/uL (1.5-3.5) L 07/23/20 05:05 [place] # (Auto) 0.8 10^3/uL (0.0-1.0) 07/23/20 05:05 Eos # (Auto) 0.0 10^3/uL (0.0-0.7) 07/23/20 05:05 Baso # (Auto) 0.0 10^3/uL (0.0-0.1) 07/23/20 05:05 Absolute Nucleated RBC 0.00 x10^3/uL 07/23/20 05:05 Nucleated RBC % 0.0 /100WBC 07/23/20 05:05 Manual Slide Review Indicated 07/21/20 05:12 WBC Morphology NORMAL APPEARANCE (NORMAL) 07/21/20 05:12 Platelet Estimate NORMAL (130-450,000) (NORMAL) 07/21/20 05:12 Platelet Morphology NORMAL APPEARANCE (NORMAL) 07/21/20 05:12 RBC Morph Micro Appear 1+ ANISOCYTOSIS (NORMAL) 1+ HYPOCHROMASIA (NORMAL) 07/21/20 05:12 RBC Morph Micro Appear 1+ ANISOCYTOSIS (NORMAL) 1+ HYPOCHROMASIA (NORMAL) 07/21/20 05:12 Absolute Retic 0.046 10^6/uL (0.020-0.110) 07/21/20 05:12 PT 12.0 secs (9.9-12.6) 07/19/20 18:40 INR 1.1 (0.8-1.2) 07/19/20 18:40 Sodium 137 mmol/L (135-145) 07/23/20 05:05 Potassium 4.3 mmol/L (3.5-5.0) 07/23/20 05:05 Chloride 103 mmol/L (101-111) 07/23/20 05:05 Carbon Dioxide 26 mmol/L (21-32) 07/23/20 05:05 Anion Gap 8.0 (6-13) 07/23/20 05:05 BUN 16 mg/dL (6-20) 07/23/20 05:05 Creatinine 1.0 mg/dL (0.6-1.2) 07/23/20 05:05 Estimated GFR (MDRD) 72 (>89) L 07/23/20 05:05 Glucose 99 mg/dL (70-100) 07/23/20 05:05 Calcium 8.7 mg/dL (8.5-10.3) 07/23/20 05:05 Phosphorus 3.8 mg/dL (2.5-4.6) 07/21/20 19:43 Magnesium 2.0 mg/dL (1.7-2.8) 07/21/20 19:43 Iron 22 ug/dL (45-182) L 07/21/20 05:12 TIBC 400 ug/dL (250-450) 07/21/20 05:12 % Saturation 5 % (20-50) L 07/21/20 05:12 Transferrin 286 mg/dL (180-329) 07/21/20 05:12 Ferritin 6.3 ng/mL (23.9-336.2) L 07/21/20 05:12 Total Bilirubin 0.6 mg/dL (0.2-1.0) 07/19/20 18:40 AST 17 IU/L (10-42) 07/19/20 18:40 ALT 18 IU/L (10-60) 07/19/20 18:40 Alkaline Phosphatase 77 IU/L (42-121) 07/19/20 18:40 Lactate Dehydrogenase 120 IU/L (91-225) 07/21/20 05:12 Troponin I High Sens 4.0 ng/L (2.3-19.7) 07/21/20 19:43 Total Protein 7.1 g/dL (6.7-8.2) 07/19/20 18:40 Albumin 4.3 g/dL (3.2-5.5) 07/19/20 18:40 Globulin 2.8 g/dL (2.1-4.2) 07/19/20 18:40 Albumin/Globulin Ratio 1.5 (1.0-2.2) 07/19/20 18:40 Lipase 115 U/L (22-51) H 07/19/20 18:40 Vitamin B12 874 pg/mL (180-914) 07/21/20 05:12 TSH 3.46 uIU/mL (0.34-5.60) 07/21/20 05:12 Urine Color YELLOW 07/19/20 19:13 Urine Clarity CLEAR (CLEAR) 07/19/20 19:13 Urine pH 6.0 PH (5.0-7.5) 07/19/20 19:13 Ur Specific [place] 1.025 (1.002-1.030) 07/19/20 19:13 Urine Protein NEGATIVE mg/dL (NEGATIVE) 07/19/20 19:13 Urine Glucose (UA) NEGATIVE mg/dL (NEGATIVE) 07/19/20 19:13 Urine Ketones NEGATIVE mg/dL (NEGATIVE) 07/19/20 19:13 Urine Occult Blood NEGATIVE (NEGATIVE) 07/19/20 19:13 Urine Nitrite NEGATIVE (NEGATIVE) 07/19/20 19:13 Urine Bilirubin NEGATIVE (NEGATIVE) 07/19/20 19:13 Urine Urobilinogen 0.2 (NORMAL) E.U./dL (NORMAL) 07/19/20 19:13 Ur Leukocyte Esterase NEGATIVE (NEGATIVE) 07/19/20 19:13 Ur Microscopic Review NOT INDICATED 07/19/20 19:13 Urine Culture Comments NOT INDICATED 07/19/20 19:13 Nasal Adenovirus (PCR) NOT DETECTED 07/19/20 23:21 Nasal B. parapertussis DNA (PCR) NOT DETECTED 07/19/20 23:21 Nasal Coronavir 229E PCR NOT DETECTED 07/19/20 23:21 Nasal Coronavir HKU1 PCR NOT DETECTED 07/19/20 23:21 Nasal Coronavir NL63 PCR NOT DETECTED 07/19/20 23:21 Nasal Coronavir OC43 PCR NOT DETECTED 07/19/20 23:21 Nasal Enterovir/Rhinovir PCR NOT DETECTED 07/19/20 23:21 Nasal Influenza B PCR NOT DETECTED 07/19/20 23:21 Nasal Influenza A PCR NOT DETECTED 07/19/20 23:21 Nasal Parainfluen 1 PCR NOT DETECTED 01/03/21 23:21 Nasal Parainfluen 2 PCR NOT DETECTED 07/19/20 23:21 Nasal Parainfluen 3 PCR NOT DETECTED 07/19/20 23:21 Nasal Parainfluen 4 PCR NOT DETECTED 07/19/20 23:21 Nasal RSV (PCR) NOT DETECTED 07/19/20 23:21 Nasal B.pertussis DNA PCR NOT DETECTED 07/19/20 23:21 Nasal C.pneumoniae (PCR) NOT DETECTED 07/19/20 23:21 [place] Human Metapneumo PCR NOT DETECTED 07/19/20 23:21 Nasal M.pneumoniae (PCR) NOT DETECTED 07/19/20 23:21 Nasal SARS-CoV-2 (PCR) NOT DETECTED 07/19/20 23:21 - Procedures Procedures: Procedures CATARAC PHACOEMULS/ASPIR (05/29/13) COLONOSCOPY (03/14/13) ESOPHAGOGASTRODUODENOSCOPY [EGD] W/CLOSED BIOPSY (01/24/13) EXCISION OF LOWER ESOPHAGUS, ENDO, DIAGN (03/20/19) EXCISION OF STOMACH, ENDO, DIAGN (03/20/19) INSERT LENS AT CATAR EXT (05/29/13) Sepsis Event Note (H) - Evaluation Current Stage of Sepsis: Ruled out ABX Reporting Has patient been on IV antibiotics over the past 48 hours?: No Current Medications - Current Medications Current Medications: Active Medications Enoxaparin Sodium (Enoxaparin 40 Mg/0.4 Ml Syringe) 40 mg SUBQ DAILY ADRIAN Last Admin: 07/23/20 08:29 Dose: 40 mg Documented by: Levothyroxine Sodium (Levothyroxine 125 Mcg Tablet) 125 mcg PO QDAC ADRIAN Last Admin: 07/23/20 06:00 Dose: 125 mcg Documented by: Morphine Sulfate (Morphine 2 Mg/Ml Carpuject) 4 mg IVP Q2HR PRN PRN Reason: PAIN Last Admin: 07/23/20 08:30 Dose: 4 mg Documented by: Pantoprazole Sodium (Pantoprazole 40 Mg Tablet) 40 mg PO QDAC ADRIAN Phenol/Menthol (Phenol Throat [place] 177 Ml) 2 sprays MM Q2HR PRN PRN Reason: Throat Pain Last Admin: 07/23/20 05:19 Dose: 2 sprays Documented by: Sodium Chloride (Sodium Chloride Flush 0.9% 10 Ml Syringe) 10 ml IVP PRN PRN PRN Reason: NEEDED PER PROVIDER ORDERS Last Admin: 07/23/20 08:30 Dose: 10 ml Documented by: Sodium Chloride (Sodium Chloride Flush 0.9% 10 Ml Syringe) 10 ml IVP 0100,0900,1700 [facility] Last Admin: 07/23/20 07:31 Dose: 10 ml Documented by: Tamsulosin HCl (Tamsulosin 0.4 Mg Capsule) 0.4 mg PO DAILY [facility] Last Admin: 07/23/20 07:32 Dose: 0.4 mg Documented by: Zolpidem Tartrate (Zolpidem 5 Mg Tablet) 5 mg PO QPM PRN PRN Reason: Insomnia Tamsulosin [Flomax] 0.4 mg PO DAILY 01/24/13 Atorvastatin Calcium 20 mg PO DAILY 04/07/17 Fluticasone Propionate [Flovent Diskus] 1 spray NS BID 04/07/17 Multivitamin [Multiple Vitamins] 1 each PO DAILY 03/20/19 Acetaminophen 325 - 650 mg PO Q6H PRN MDD 8 tabs / 24hrs 03/21/19 Melatonin 5 mg PO QPM PRN 03/21/19 polyethylene glycoL 3350 [Miralax] 17 gm PO DAILY 03/21/19 Levothyroxine [Synthroid] 125 mcg PO DAILY 07/20/20 Omeprazole 20 mg PO BID 07/20/20
--- NOTE | 2020-07-23 16:08 | PROVIDER PROGRESS NOTE ---
Progress Note Subjective No acute complaints. No nausea no vomiting. Appropriate pain. Voiding on own. Diet advanced. Status post below listed procedure. Pre-Op Diagnosis: Large hiatal hernia, gastric volvulus, history of gastric ulceration Procedure Performed: 1. Diagnostic laparoscopy 2. Laparoscopic assisted gastropexy, sutured 3. Laparoscopic assisted gastrostomy tube placement 4. Open umbilical hernia repair 5. Esophagogastroduodenoscopy Post Op Diagnosis: Successful gastropexy, umbilical hernia repair primarily, stomach reduced Objective General Appearance: positive: No acute distress Eyes Bilateral: positive: Normal inspection ENT: positive: ENT inspection nml Neck: positive: Nml inspection Respiratory: positive: Chest non-tender, No respiratory distress, Breath sounds nml. negative: Wheezes, Rales, Rhonchi Cardiovascular: positive: Regular rate & rhythm Abdomen: positive: No distention, Other. negative: Guarding, Rebound; Gastrostomy tube in place, disconnected from Wilson bag. No local erythema wounds clean dry and intact. Extremities: positive: Non-tender, Full ROM, Nml appearance Neurologic/Psychiatric: positive: Oriented x3, CN's nml (2-12) Impression/Plan Postoperative day #1 status post laparoscopic-assisted gastropexy and gastrostomy tube placement with simultaneous umbilical hernia repair. Overall doing well. Advance diet. Office follow-up. Disconnected tube from drainage catheter. Will need to flush daily with 40 cc of water. We will follow up in clinicAppropriate for discharge from a surgical standpoint. (1) GI - IVF, bowel regimen, advance diet as tolerated. GI ppx. Opiate sparring analgesia. (2) SURGERY - Continue gastrostomy tube until anticipate appropriate healing from two-point gastropexy.. (3) Renal/Lytes - continue IVF. Renal indices within normal limits. (4) Respiratory - O2 as necessary. Continue IS. (5) Heme - Will continue with DVT ppx. H/H stable. (6) Cardiovascular - HD acceptable. (7) Neuro - Opiate sparring analgesia. Antispasmodics with Robaxin. [Toradol]. Neuropathic agents.
[2020-07-24] MEDS: LEVOTHYROXINE 125 MCG TABLET PO SCH (06:08)
[2020-07-24] MEDS: MORPHINE 2 MG/ML CARPUJECT IVP PRN (06:15)
[2020-07-24] MEDS: SODIUM CHLORIDE FLUSH 0.9% 10 ML SYRINGE IVP PRN (06:16)
[2020-07-24] MEDS ORDERED: PANTOPRAZOLE 40 MG TABLET PO SCH (07:00)
[2020-07-24 07:02] LABS: BASOPHILS # (AUTO) 0.1 10^3/uL (0.0-0.1); BASOPHILS % (AUTO) 0.8 %; EOSINOPHILS # (AUTO) 0.2 10^3/uL (0.0-0.7); EOSINOPHILS % (AUTO) 2.5 %; HGB - HEMOGLOBIN 9.2 g/dL (14.0-18.0); LYMPHOCYTES # (AUTO) 0.7 10^3/uL (1.5-3.5); LYMPHOCYTES % (AUTO) 11.9 %; MEAN CORPUSCULAR HEMOGLOBIN 22.4 pg (27.0-31.0); MEAN CORPUSCULAR HGB CONC 28.2 g/dL (32.0-36.0); MEAN CORPUSCULAR VOLUME 79.3 fL (80.0-94.0); MEAN PLATELET VOLUME 9.2 fL (7.4-11.4); MONOCYTES # (AUTO) 0.6 10^3/uL (0.0-1.0); MONOCYTES % (AUTO) 9.7 %; NEUTROPHILS # (AUTO) 4.5 10^3/uL (1.5-6.6); NEUTROPHILS % (AUTO) 74.8 %; PLT - PLATELET COUNT 228 10^3/uL (130-450); RED BLOOD COUNT 4.11 10^6/uL (4.70-6.10); RED CELL DISTRIBUTION WIDTH 18.6 % (12.0-15.0); WHITE BLOOD COUNT 6.1 x10^3/uL (4.8-10.8)
[2020-07-24 07:09] LABS: CALCIUM 8.7 mg/dL (8.5-10.3)
[2020-07-24 07:46] LABS: PLATELET MORPHOLOGY NORMAL APPEARANCE (NORMAL)
[2020-07-24 07:47] LABS: PLATELET ESTIMATE, MANUAL NORMAL (130-450,000) (NORMAL); RBC MORPHOLOGY (MULTIPLE) 1+ HYPOCHROMASIA (NORMAL)
[2020-07-24] MEDS ORDERED: FERROUS GLUCONATE 324 MG TABLET PO SCH (08:00)
[2020-07-24] MEDS: ENOXAPARIN 40 MG/0.4 ML SYRINGE SUBQ SCH (08:26)
[2020-07-24] MEDS: TAMSULOSIN 0.4 MG CAPSULE PO SCH (08:27)
[2020-07-24] MEDS: SODIUM CHLORIDE FLUSH 0.9% 10 ML SYRINGE IVP SCH (08:27)
--- NOTE | 2020-07-24 12:09 | Discharge Plan ---
Discharge Plan Problem Reviewed?: Yes Disposition: Home, Self Care Condition: Stable Prescriptions: Ferrous Gluconate [Fergon] 324 mg PO DAILYWM #30 tablet oxyCODONE [Roxicodone] 5 mg PO Q4-6H PRN #15 tablet PRN Reason: Pain Diet: Soft Activity Restrictions: Activity as Tolerated Shower Restrictions: No (fall precaution) Instruction Topics: Oxycodone tablets or capsules, Anemia, Intestinal Obstruction Health Concerns: status post of umbilical hernia repair and paraesophageal hernia repair Plan of Treatment: you had paraesophageal hernia repair and umbilical hernia repair. After surgery you clinically present well. You had gastrostomy tube placement with simultaneous umbilical hernia repair. you may resume soft diet, you may followup with surgery Office in two weeks or early as needed. You may flush gastrostomy tube daily with 40 cc of water. Care Goals: stabilization, improvement/resolve of your medical conditions. Assessment: Discussed the care plan with you, you understood and agreed. Additional Instructions or Follow Up instructions: You may followup with your PCP in one to two weeks, followup with surgeon in two weeks or early as needed. Should your symptoms return or worsen, you may present ER or call 911 for help. No Smoking: If you smoke, Please STOP! Call for help. Follow-up with: Yon Dominguez MD [Primary Care Provider] -
--- NOTE | 2020-07-24 12:29 | DISCHARGE SUMMARY ---
"Discharge Summary Admit Date: 07/19/20 Discharge Date: 07/24/20 Discharging Provider: Naren Harper Primary Care Provider: Tami Livingston Condition at Discharge: Stable Discharge Disposition: 01 Home, Self Care Discharge Facility Name: home - DIAGNOSES Discharge Diagnoses with Status of Each Condition: (1) Gastric outlet obstruction resolved. surgery repaired. pt had Diagnostic laparoscopy, Laparoscopic assisted gastropexy sutured, Laparoscopic assisted gastrostomy tube placement, Open umbilical hernia repair, Esophagogastroduodenoscopy was done by GI surgeon. After surgery patient was doing very well, patient tolerated regular diet, No nausea or vomiting. Patient was denying pain. Patient was instructed how to flush gastrostomy tube daily with 40 cc of water and gastrostomy tube care, Follow-up with surgeon in 2 weeks. (2) Paraesophageal hernia resolved, surgery repaired. pt had paraesophageal hernia repair as above. (3) Gastric volvulus resolved. surgery repaired. as the above. (4) Anemia stable. iron deficiency, pt had IV of iron, patient prescribed iron pill (5) BPH (benign prostatic hyperplasia) stable (6) HLD (hyperlipidemia) stable (7) Hypothyroidism TSH is normal, stable (8) Sleep apnea stable (9) sinus bradycardia stable. - HPI History of Present Illness: refer from Dr. Rosado's HPI on 07/19/20 Patient is an 82-year-old male who presented to the ED with complaint of upper abdominal pain which started around 3 PM shortly after having a bowl of tortilla soup. He described it as an 8/10 sharp pain. He felt similar symptoms about 1 to 2 weeks ago. He was nauseous but did not vomit. He denied chest pain, dyspnea, fever or chills. At the time of my exam, he denied any significant pain. Work-up in the ED included CT of the abdomen/pelvis which showed a significant paraesophageal hernia with the stomach in the thoracic cavity and a gastric volvulus with obstruction. Dr Shania Remy With general surgery was contacted by the ED physician Dr. Gay and she advised inserting an NG tube for decompression. The patient is being admitted for further treatment. - CONSULTS | PROCEDURES Consultations: Dr. Orellana Procedures: Diagnostic laparoscopy, Laparoscopic assisted gastropexy sutured, Laparoscopic assisted gastrostomy tube placement, Open umbilical hernia repair, Esophagogas troduodenoscopy - HOSPITAL COURSE Hospital Course: Patient was admitted for abdominal pain, with nausea and vomiting. CT of the abdomen/pelvis which showed a significant paraesophageal hernia with the stomach in the thoracic cavity and a gastric volvulus with obstruction. Patient was first given NG tube. Patient was counseled with surgeon. Surgeon did Diagnostic laparoscopy, Laparoscopic assisted gastropexy sutured, Laparoscopic assisted gastrostomy tube placement, Open umbilical hernia repair, Esophagogastroduodenoscopy for pt. After surgery, patient was doing very well, patient tolerated regular diet without nausea, vomiting or abdominal pain. [place]ma ent was instructed how to flush gastrostomy tube daily with 40 cc of water and gastrostomy tube care, Follow-up with surgeon in 2 weeks. - ALLERGIES Allergies/Adverse Reactions: Allergies Allergy/AdvReac Type Severity Reaction Status Date / Time No Known Drug Allergies Allergy Verified 07/19/20 18:16 - MEDICATIONS Home Medications: Ambulatory Orders Medication Instructions Recorded Confirmed Tamsulosin [Flomax] 0.4 mg PO DAILY 01/24/13 07/23/20 Atorvastatin Calcium 20 mg PO DAILY 04/07/17 07/23/20 Fluticasone Propionate [Flovent 1 spray NS BID 04/07/17 07/23/20 Diskus] Multivitamin [Multiple Vitamins] 1 each PO DAILY 03/20/19 07/23/20 Acetaminophen 325 - 650 mg PO Q6H PRN MDD 8 tabs 03/21/19 07/23/20 / 24hrs Melatonin 5 mg PO QPM PRN 03/21/19 07/23/20 polyethylene glycoL 3350 [Miralax] 17 gm PO DAILY 03/21/19 07/23/20 Levothyroxine [Synthroid] 125 mcg PO DAILY 07/20/20 07/23/20 Omeprazole 20 mg PO BID 07/20/20 07/23/20 Ferrous Gluconate [Fergon] 324 mg PO DAILYWM #30 tablet 07/24/20 oxyCODONE [Roxicodone] 5 mg PO Q4-6H PRN #15 tablet 07/24/20 - PHYSICAL EXAM AT DISCHARGE General Appearance: positive: No acute distress, Alert. negative: Lethargic Eyes Bilateral: positive: Normal inspection, EOMI, No lid inflammation ENT: positive: ENT inspection nml, No signs of dehydration. negative: Purulent nasal drainage Neck: positive: Nml inspection, Trachea midline. negative: Thyromegaly, Tracheal deviation Respiratory: positive: Chest non-tender, No respiratory distress, Breath sounds nml. negative: Wheezes, Rales, Rhonchi Cardiovascular: positive: Regular rate & rhythm, No murmur, Bradycardia. negative: Tachycardia, Systolic murmur, Diastolic murmur Peripheral Pulses: positive: 2+ Abdomen: positive: Non-tender, Nml bowel sounds, No distention. negative: Tenderness, Guarding, Rebound Back: positive: Nml inspection. negative: CVA tenderness (R), CVA tenderness (L) Skin: positive: Color nml, Warm, Dry. negative: Cyanosis, Diaphoresis, Pallor Extremities: positive: Non-tender, Full ROM, Nml appearance. negative: Calf tenderness Neurologic/Psychiatric: positive: Oriented x3, Motor nml, Sensation nml, Mood/affect nml. negative: Weakness, Sensory loss, Facial droop, Slurred/abnml speech, Depressed mood/affect - LABS Result Diagrams: 07/24/20 06:44 07/24/20 06:44 - SEPSIS Current Stage of Sepsis: Ruled out - FOLLOW UP Follow Up: you had paraesophageal hernia repair and umbilical hernia repair. After surgery you clinically present well. You had gastrostomy tube placement with simultaneous umbilical hernia repair. you may resume soft diet, you may followup with surgery Office in two weeks or early as needed. You may flush gastrostomy tube daily with 40 cc of water. You may followup with your PCP in one to two weeks, followup with surgeon in two weeks or early as needed. Should your symptoms return or worsen, you may present ER or call 911 for help. - TIME SPENT Time Spent in Discharge (Minutes): 30"
[2020-07-24 13:02] VITALS: BP 135/66
--- NOTE | 2020-07-29 15:07 | OPERATIVE REPORT ---
DATE OF SERVICE: 07/22/2020 Physician: Pravin Orellana MD ADDENDUM TO OPERATIVE REPORT Please see [facility] Operative Report # [id number] dated 07/22/2020 for Full Operative Report Headings information DESCRIPTION OF PROCEDURE: The patient was taken to the operating room and placed supine on the operating table. Informed consent was already obtained and achieved. The patient had already undergone preoperative upper endoscopy without any evidence of any malignancy or other concerning features. The patient was notable for a large hiatal hernia and,given his age, the size of the hiatus and also the concern for recurrent gastric volvulus, patient was advised of the indication to undergo a laparoscopic-assisted gastropexy with gastrostomy tube placement. Risks and benefits were discussed, questions answered. Informed consent was obtained and documented in the patient's permanent medical record. Patient was induced for general endotracheal anesthesia. Wilson catheter was placed. The patient was prepped and draped in the usual sterile fashion. Patient was called for a timeout, which was agreed to by all in the room. Patient was performed for abdominal umbilical access through the patient's umbilical hernia, which was planned for primary repair during this operative intervention. A circumlinear incision was made at the level of the umbilicus, taken down through the subcutaneous tissue. The umbilicus was elevated off umbilical hernia defect, and thereafter the defect was accessed with a Jami catheter with no complication. There was no inadvertent injury to the hollow viscus underlying. Thereafter, the abdomen was insufflated to 15 mmHg without any complication. At this time, additional trocars were placed in the following positions: 1. Suprapubic. 2. Left lower quadrant. These were 5 mm ports placed under direct laparoscopic visualization without any complication. A final port was placed subxiphoid to left of midline. We thereafter began to evaluate and noted a large hiatal hernia with the entirety of the stomach within the thoracic cavity. This was carefully reduced within the abdominal cavity. There was no evidence of any ulceration, ischemia or active torsion. Ultimately, we were able to successfully reduce the stomach and proximal duodenum and antrum into the abdomen without any incident. At this time, we planned to perform a suture gastropexy proximally along the greater curvature to assure at 2 points of fixation with a second gastropexy through gastrostomy to avoid any further herniation, to ensure proper fixation, and also to prevent any torsion or recurrent volvulus. Suture gastropexy was performed multiply within the greater curvature within the gastric body at multiple points. This was achieved with 2-0 Vicryl x3 without any complication. These were achieved with hemostasis and no concerning features. Once this was achieved, we thereafter required the assistance of Dr. Joey Calles in order to proceed with the gastrostomy portion of this operative intervention, which was performed under direct visualization and laparoscopic assistance. Having affixed the proximal portion of the greater curvature and gastric body to the anterior abdominal wall during EGD, the stomach was insufflated. We thereafter desufflated the abdomen to 8 mmHg without any complication. At this time with the stomach distended, we could see that the antrum and the distal stomach was approximated to the anterior abdominal wall well within the abdomen and was approximated to the historic epigastric 5 mm trocar. It seemed an appropriate location to place the gastrostomy tube, and thus we proceeded with the gastrostomy assisted gastropexy portion of this operative intervention. Please see Dr. Calles's independent endoscopic note thereafter. We placed a needle through the historic trocar site, and thereafter the wire was grasped per Dr. Calles. It was pulled through to the mouth and thereafter the percutaneous endoscopic gastrostomy tube kit was of the "push kind" and was passed over the wire in a modified Seldinger technique. It was noted coming through the stomach laparoscopically. It was grasped with a grasper and pulled through the historic trocar site and thereafter pulled through to the stomach with a retention button pulling against the gastrostomy with the stomach approximated to the anterior abdominal wall. There was no hollow viscus or other structures within this region, and this was performed under direct visualization. With stomach gastrostomy tube clamped and within good visualization, Dr. Calles performed a final endoscopic evaluation, and this was in appropriate position and without any hemorrhage and was hemostatic at this time. We thanked Dr. Calles for his assistance, and we proceeded with the remainder of our operative intervention. We placed 1 final suture at the proximal gastropexy site in the similar laparoscopic fashion with 2-0 Vicryl. All needles were accounted for before closure. With this completed, we assured the stomach was appropriately affixed and approximated to the anterior abdominal wall and we desufflated the abdomen after removing the accessory 5 mm trocar ports under direct visualization with no bleeding. We proceeded to close the historic umbilical hernia with multiple interrupted sutures of 0 Vicryl [id number] and performed the umbilicoplasty. We closed the skin incisions with 4-0 Monocryl and dressed with Dermabond. We ultimately cut the gastrostomy tube after placing the retention collar to approximately 3-4 cm and placed the end cap as appropriate. We placed several nylon sutures interrupted to the collar without any complication for fixation. We ultimately placed the gastrostomy tube to gravity to a Wilson bag without any complications. Patient tolerated the procedure well. There were no complications. I was present for the entirety of this operative intervention. All counts of sponges, needles, and instruments were correct at conclusion of the operative case, and the patient was taken to the postanesthesia care unit in stable condition. TD: 07/28/2020 14:31 Shad BRAVO
== END 2020-07-24 14:15 | disposition home or self-care (01) | DRG 327 ==
LOC: ED 18:12 → MS2 22:42 → OBSVTOIN 07-20 15:08
PROVIDERS: ADMIT Internal Medicine; ATTEND Nurse Practitioner Gerontology
PROC: 0DB68ZX Excision of Stomach, Via Natural or Artificial Opening Endoscopic, Diagnostic (ICD-10-PCS; 2020-07-21)
PROC: 0DBA8ZX Excision of Jejunum, Via Natural or Artificial Opening Endoscopic, Diagnostic (ICD-10-PCS; 2020-07-21)
PROC: 0DB48ZX Excision of Esophagogastric Junction, Via Natural or Artificial Opening Endoscopic, Diagnostic (ICD-10-PCS; 2020-07-21)
PROC: 0DH60UZ Insertion of Feeding Device into Stomach, Open Approach (ICD-10-PCS; 2020-07-22)
PROC: 0DQ60ZZ Repair Stomach, Open Approach (ICD-10-PCS; principal; 2020-07-22 13:00)
DX: K31.1 Adult hypertrophic pyloric stenosis (principal); K31.5 Obstruction of duodenum; K44.9 Diaphragmatic hernia without obstruction or gangrene; D50.9 Iron deficiency anemia, unspecified; N40.0 Benign prostatic hyperplasia without lower urinary tract symptoms; E78.5 Hyperlipidemia, unspecified; R91.8 Other nonspecific abnormal finding of lung field; E03.9 Hypothyroidism, unspecified; G47.30 Sleep apnea, unspecified; I10 Essential (primary) hypertension; K21.9 Gastro-esophageal reflux disease without esophagitis; R00.1 Bradycardia, unspecified; Z79.899 Other long term (current) drug therapy
CPT/HCPCS: 36415; 43753; 71045; 74177; 80048; 80053; 81003; 82607; 82728; 83540; 83615; 83690; 83735; 84100; 84443; 84466; 84484; 85025; 85045; 85610; 87631; 93005; 96365; 96366; 96375; 99285; A9270; G0378; J1650; J2916; J7120; Q9967; 0202U; 81001; 87086

== ENCOUNTER 2020-08-24 09:28 | Outpatient (CLI) | payer MEDICARE, OTHER ==
[2020-08-24 15:26] LABS: BASOPHILS # (AUTO) 0.1 10^3/uL (0.0-0.1); BASOPHILS % (AUTO) 1.1 %; EOSINOPHILS # (AUTO) 0.1 10^3/uL (0.0-0.7); EOSINOPHILS % (AUTO) 2.5 %; HGB - HEMOGLOBIN 11.3 g/dL (14.0-18.0); LYMPHOCYTES # (AUTO) 0.9 10^3/uL (1.5-3.5); LYMPHOCYTES % (AUTO) 18.9 %; MEAN CORPUSCULAR HEMOGLOBIN 24.5 pg (27.0-31.0); MEAN CORPUSCULAR HGB CONC 27.2 g/dL (32.0-36.0); MEAN PLATELET VOLUME 9.6 fL (7.4-11.4); MONOCYTES # (AUTO) 0.5 10^3/uL (0.0-1.0); MONOCYTES % (AUTO) 9.5 %; NEUTROPHILS # (AUTO) 3.2 10^3/uL (1.5-6.6); NEUTROPHILS % (AUTO) 67.6 %; PLT - PLATELET COUNT 214 10^3/uL (130-450); RED BLOOD COUNT 4.62 10^6/uL (4.70-6.10); RED CELL DISTRIBUTION WIDTH 23.8 % (12.0-15.0); WHITE BLOOD COUNT 4.8 x10^3/uL (4.8-10.8)
[2020-08-24 16:01] LABS: FERRITIN 20.3 ng/mL (23.9-336.2)
--- NOTE | 2020-08-24 16:22 | XRAY Report ---
PROCEDURE: Lumbar Spine 2 View INDICATIONS: LOW BACK PAIN, CHRONIC TECHNIQUE: 2 views of the lumbar spine were acquired. COMPARISON: CT abdomen pelvis 07/19/2020 FINDINGS: Bones: 5 [id number] vertebrae are present. There is trace retrolisthesis of L2 on L3, L3 on L4 4. There is compression deformity at L1 measuring approximately 66%. This is unchanged compared to p rior exam. No vertebral body compression fractures. No suspicious bony lesions. Moderate foraminal narrowing is present at L3-4, L5-S1, mild to moderate throughout the remainder of the lumbar spine. A nterior osteophytes are present most notable at T12-L2. Multilevel facet arthropathy is present. Soft tissues: Overlying bowel gas pattern is normal. No suspicious soft tissue calcifications. IMPRESSION: Stable appearance of compression deformity at L1. Multilevel degenerative changes remain most severe at L5-S1. As clinically indicated for further evaluation, MRI lumbar spine is recommende d for further evaluation. Reviewed by: Marianela Kern MD on 08/24/2020 4:20 PM PST Approved by: Marianela Kern MD on 08/24/2020 4:20 PM PST Station ID: [id number]
[2020-08-24 19:25] LABS: PLATELET ESTIMATE, MANUAL NORMAL (130-450,000) (NORMAL); PLATELET MORPHOLOGY NORMAL APPEARANCE (NORMAL); RBC MORPHOLOGY (MULTIPLE) 1+ ANISOCYTOSIS (NORMAL)
[2020-08-24 19:56] LABS: ALBUMIN/GLOBULIN RATIO 1.7 (1.0-2.2); BILIRUBIN,TOTAL 0.7 mg/dL (0.2-1.0); CALCIUM 9.4 mg/dL (8.5-10.3); TOTAL PROTEIN 6.3 g/dL (6.7-8.2)
== END 2020-08-24 09:29 | disposition home or self-care (01) ==
LOC: DI.S 09:28
PROVIDERS: ATTEND Internal Medicine
DX: M47.817 Spondylosis without myelopathy or radiculopathy, lumbosacral region (principal); I10 Essential (primary) hypertension; D64.9 Anemia, unspecified; E03.9 Hypothyroidism, unspecified; Z12.5 Encounter for screening for malignant neoplasm of prostate
CPT/HCPCS: 36415; 72100; 80053; 82728; 83540; 84443; 84466; 85025; G0103; 84153

== ENCOUNTER 2020-10-09 13:15 | Outpatient (CLI) | payer MEDICARE, OTHER | END 2020-10-09 13:16 | disposition home or self-care (01) | LOC: COV 13:15 | PROVIDERS: ATTEND Surgery | DX: Z01.812 Encounter for preprocedural laboratory examination (principal); K31.89 Other diseases of stomach and duodenum; K44.9 Diaphragmatic hernia without obstruction or gangrene; Z20.822 Contact with and (suspected) exposure to COVID-19 ==

== ENCOUNTER 2020-10-13 10:13 | Day surgery (SDC) | payer MEDICARE, OTHER ==
[2020-10-13] MEDS ORDERED: LACTATED RINGERS 1,000 ML IV ONE ×2 (11:21→13:38)
--- NOTE | 2020-10-13 11:28 | ANESTHESIA ---
Pre-Anesthesia VS, & Labs - Diagnosis gastric volvulous, hiatal hernia - Procedure EGD, g-tube removal Vital Signs: Temp Pulse Resp BP Pulse Ox 36.5 C 56 L 16 169/85 H 100 10/13/20 10:54 10/13/20 10:54 10/13/20 10:54 10/13/20 10:54 10/13/20 10:54 Height: 5 ft 7 in Weight (kg): 84.1 kg Body Mass Index: 29.0 BMI Classification: Overweight - NPO >8 hours Home Medications and Allergies Home Medications: Ambulatory Orders Cyanocobalamin (Vitamin B-12) [Vitamin B-12] 1,000 mcg PO DAILY 10/06/20 Glucos Sul 2Kcl/MSM/Chond/C/Mn [Glucosamine Chondroitin Cap] 1 each PO DAILY 10/06/20 Mag Carb/Al Hydrox/Alginic AC [Gaviscon Extra Strength Liquid] 5 ml PO PRN PRN 10/06/20 Tamsulosin [Flomax] 0.4 mg PO DAILY 01/24/13 Atorvastatin Calcium 20 mg PO DAILY 04/07/17 Fluticasone Propionate [Flovent Diskus] 1 spray NS BID 04/07/17 Multivitamin [Multiple Vitamins] 1 each PO DAILY 03/20/19 Melatonin 5 mg PO QPM PRN 03/21/19 polyethylene glycoL 3350 [Miralax] 17 gm PO DAILY 03/21/19 Levothyroxine [Synthroid] 125 mcg PO DAILY 07/20/20 Omeprazole 20 mg PO BID 07/20/20 Cyanocobalamin (Vitamin B-12) [Vitamin B-12] 1,000 mcg PO DAILY 10/06/20 Glucos Sul 2Kcl/MSM/Chond/C/Mn [Glucosamine Chondroitin Cap] 1 each PO DAILY 10/06/20 Mag Carb/Al Hydrox/Alginic AC [Gaviscon Extra Strength Liquid] 5 ml PO PRN PRN 10/06/20 Allergies/Adverse Reactions: Allergies Allergy/AdvReac Type Severity Reaction Status Date / Time No Known Drug Allergies Allergy Verified 10/13/20 11:20 Anes History & Medical History - Anesthetic History Anesthesia Complications: reports: No previous complications - Medical History Cardiovascular: reports: Hypertension, High cholesterol Pulmonary: reports: Sleep apnea, CPAP use Gastrointestinal: reports: GERD Urinary: reports: Benign prostate hypertrophy Neuro: reports: None Musculoskeletal: reports: Osteoarthritis Endocrine/Autoimmune: reports: HyPOthyroidism Blood Disorders: reports: Anemia Skin: reports: None Smoking Status: Never smoker - Surgical History General: reports: Colonoscopy Urologic: reports: Penile implant Orthopedic: reports: Knee replacement, Rotator cuff repair Exam General: Alert Dental: WNL Mouth Opening: Greater than 4 Fingerbreadths Neck Mobility: Normal Mallampati classification: II Thyromental Distance: greater than 6 cm Respiratory: Lungs clear Cardiovascular: Regular rate Plan Anesthesia Type: MAC Consent for Procedure(s) Verified and Reviewed: Yes Code Status: Attempt Resuscitation ASA classification: 2-Mild systemic disease Is this case an emergency?: No
[2020-10-13] MEDS ORDERED: LIDOCAINE-MPF 2% 5 ML VIAL ONE (13:00)
[2020-10-13] MEDS ORDERED: PROPOFOL 200 MG/20 ML VIAL IVP ONE ×2 (13:00→13:39)
[2020-10-13 14:25] VITALS: BP 160/74
[2020-10-13] MEDS ORDERED: ACETAMINOPHEN 325 MG TABLET PO ONE (14:33)
--- NOTE | 2020-10-13 16:54 | ANESTHESIA POST OP EVALUATION ---
Anesthesia Post Eval - Post Anesthesia Eval Vitals: Last Vital Signs Temp 36.7 C 10/13/20 14:22 Pulse 52 L 10/13/20 14:22 Resp 16 10/13/20 14:22 BP 160/74 H 10/13/20 14:22 Pulse Ox 100 10/13/20 14:22 CV Function Including HR & BP: positive: Stable Pain Control: positive: Satisfactory Nausea & Vomiting: positive: Negative Mental Status: positive: Patient Participates Respiratory Status: Airway Patent Hydration Status: Satisfactory Anesthesia Complications: positive: None
== END 2020-10-13 10:14 | disposition home or self-care (01) ==
LOC: SDS 10:13
PROVIDERS: ATTEND Surgery
DX: Z43.1 Encounter for attention to gastrostomy (principal); Z87.19 Personal history of other diseases of the digestive system; K44.9 Diaphragmatic hernia without obstruction or gangrene; F03.90 Unspecified dementia, unspecified severity, without behavioral disturbance, psychotic disturbance, mood disturbance, and anxiety; K21.9 Gastro-esophageal reflux disease without esophagitis; I10 Essential (primary) hypertension; E03.9 Hypothyroidism, unspecified; E78.00 Pure hypercholesterolemia, unspecified; G47.30 Sleep apnea, unspecified; N40.0 Benign prostatic hyperplasia without lower urinary tract symptoms; E66.3 Overweight; Z68.29 Body mass index [BMI] 29.0-29.9, adult
CPT/HCPCS: 43247; 43870; A9270; J7120

== ENCOUNTER 2021-01-05 13:34 | Outpatient (CLI) | payer MEDICARE, OTHER ==
[2021-01-05 14:03] LABS: BASOPHILS # (AUTO) 0.1 10^3/uL (0.0-0.1); BASOPHILS % (AUTO) 1.1 %; EOSINOPHILS # (AUTO) 0.1 10^3/uL (0.0-0.7); EOSINOPHILS % (AUTO) 1.3 %; HCT - HEMATOCRIT 46.9 % (42.0-52.0); HGB - HEMOGLOBIN 14.8 g/dL (14.0-18.0); LYMPHOCYTES # (AUTO) 1.2 10^3/uL (1.5-3.5); LYMPHOCYTES % (AUTO) 18.7 %; MEAN CORPUSCULAR HEMOGLOBIN 31.1 pg (27.0-31.0); MEAN CORPUSCULAR HGB CONC 31.6 g/dL (32.0-36.0); MEAN CORPUSCULAR VOLUME 98.5 fL (80.0-94.0); MEAN PLATELET VOLUME 8.9 fL (7.4-11.4); MONOCYTES # (AUTO) 0.6 10^3/uL (0.0-1.0); MONOCYTES % (AUTO) 9.8 %; NEUTROPHILS # (AUTO) 4.2 10^3/uL (1.5-6.6); NEUTROPHILS % (AUTO) 68.4 %; PLT - PLATELET COUNT 222 10^3/uL (130-450); RED BLOOD COUNT 4.76 10^6/uL (4.70-6.10); RED CELL DISTRIBUTION WIDTH 14.8 % (12.0-15.0); WHITE BLOOD COUNT 6.2 x10^3/uL (4.8-10.8)
[2021-01-05 14:12] LABS: CREATININE 0.9 mg/dL (0.6-1.2); POTASSIUM 4.2 mmol/L (3.5-5.0)
[2021-01-05 20:33] LABS: ESTIMATED AVERAGE GLUCOSE 120 mg/dL (70-100); HEMOGLOBIN A1c% 5.8 % (4.27-6.07)
== END 2021-01-05 13:35 | disposition home or self-care (01) ==
LOC: LAB 13:34
PROVIDERS: ATTEND Orthopaedic Surgery
DX: Z01.818 Encounter for other preprocedural examination (principal); R73.9 Hyperglycemia, unspecified
CPT/HCPCS: 36415; 80048; 83036; 85025; 93005

== ENCOUNTER 2021-03-03 09:41 | Outpatient (CLI) | payer MEDICARE, OTHER ==
[2021-03-03 14:46] LABS: BASOPHILS # (AUTO) 0.1 10^3/uL (0.0-0.1); BASOPHILS % (AUTO) 1.1 %; EOSINOPHILS # (AUTO) 0.3 10^3/uL (0.0-0.7); EOSINOPHILS % (AUTO) 5.3 %; HCT - HEMATOCRIT 45.3 % (42.0-52.0); HGB - HEMOGLOBIN 13.4 g/dL (14.0-18.0); LYMPHOCYTES # (AUTO) 0.7 10^3/uL (1.5-3.5); LYMPHOCYTES % (AUTO) 12.5 %; MEAN CORPUSCULAR HEMOGLOBIN 30.6 pg (27.0-31.0); MEAN CORPUSCULAR HGB CONC 29.6 g/dL (32.0-36.0); MEAN CORPUSCULAR VOLUME 103.4 fL (80.0-94.0); MONOCYTES # (AUTO) 0.5 10^3/uL (0.0-1.0); MONOCYTES % (AUTO) 9.3 %; NEUTROPHILS % (AUTO) 70.7 %; PLT - PLATELET COUNT 289 10^3/uL (130-450); RED BLOOD COUNT 4.38 10^6/uL (4.70-6.10); WHITE BLOOD COUNT 5.7 x10^3/uL (4.8-10.8)
[2021-03-03 15:02] LABS: ALBUMIN 3.5 g/dL (3.2-5.5); ALBUMIN/GLOBULIN RATIO 1.2 (1.0-2.2); BILIRUBIN,TOTAL 0.8 mg/dL (0.2-1.0); CALCIUM 9.3 mg/dL (8.5-10.3); CREATININE 0.8 mg/dL (0.6-1.2); POTASSIUM 4.3 mmol/L (3.5-5.0); TOTAL PROTEIN 6.5 g/dL (6.7-8.2)
[2021-03-03 15:13] LABS: THYROID STIMULATING HORMONE 18.35 uIU/mL (0.34-5.60)
[2021-03-03 16:01] LABS: FREE T4 (FREE THYROXINE) 1.09 ng/dL (0.58-1.64)
== END 2021-03-03 09:42 | disposition home or self-care (01) ==
LOC: LAB.S 09:41
PROVIDERS: ATTEND Internal Medicine
DX: I10 Essential (primary) hypertension (principal); R97.20 Elevated prostate specific antigen [PSA]; E03.9 Hypothyroidism, unspecified; D64.9 Anemia, unspecified
CPT/HCPCS: 36415; 80053; 84153; 84439; 84443; 85025

== ENCOUNTER 2021-06-09 10:08 | Outpatient (CLI) | payer MEDICARE, OTHER ==
[2021-06-09 15:44] LABS: THYROID STIMULATING HORMONE 5.01 uIU/mL (0.34-5.60)
== END 2021-06-09 10:09 | disposition home or self-care (01) ==
LOC: LAB.S 10:08
PROVIDERS: ATTEND Internal Medicine
DX: I10 Essential (primary) hypertension (principal); R97.20 Elevated prostate specific antigen [PSA]; E03.9 Hypothyroidism, unspecified; D64.9 Anemia, unspecified
CPT/HCPCS: 36415; 84443

== ENCOUNTER 2021-10-22 20:59 | Emergency (ER) | payer MEDICARE, OTHER ==
--- OUTSIDE RECORDS SUMMARY | 2021-10-22 21:39 | EXTERNAL MEDICAL SUMMARY RPT | Continuity of Care Document ---
:1940 Author Organization [facility] Address [address] [place] [address] Phone Care Team Providers Name Role Phone Yon Dominguez Unavailable Unavailable Yon Dominguez Unavailable Unavailable Allergies No information. Encounters No information. Medications date description facility 20211022 Aspirin 81 MG Enteric Coated Tablet Is [facility] 20211022 Oxycodone Hydrochloride 5 MG Oral Table [facility] Problems date description facility 20211022 Presence of left artificial knee joint [facility] 20211022 Other instability, left knee [facility] sp[facility] 20211020 Contact with and (suspected) exposure t o [address] Procedures date description facility 20211022 [facility] 20211020 [facility] Results No information. Vital Signs date measurement value source 20211022 weight_standard 88 lb 20211022 weight_metric 39.91 kg 20211022 temperature_standard 97.3 F 20211022 temperature_metric 36.28 C 20211022 respiration_rate 16 /min 20211022 height_standard 68 in 20211022 height_metric 172.72 cm 20211022 heart_rate 57 /min 20211022 BP_systolic 160 mm[Hg] 20211022 BP_diastolic 79 mm[Hg] 20211022 BMI 29.5 kg/m2
[2021-10-22] MEDS ORDERED: BUPIVACAINE 0.5% PF 10 ML VIAL SUBQ STA (21:50)
--- NOTE | 2021-10-22 22:24 | XRAY Report ---
PROCEDURE: Knee 2 View LT INDICATIONS: post op swelling TECHNIQUE: 3 views of the left knee were acquired. COMPARISON: None available. FINDINGS: Bones: There is a left total knee prosthesis demonstrated. No periprosthetic fractures or dislocation . No definite suspicious periprosthetic lucencies. Soft tissues: There is a moderate joint effusion. Prominent prepatellar soft tissue swelling and subc utaneous cutaneous edema are demonstrated. There is a pocket of subcutaneous soft tissue gas also dem onstrated anteriorly. IMPRESSION: 1. Prepatellar soft tissue swelling and subcutaneous edema as well as a moderate joint effusion likel y reflecting postsurgical changes. However, infection cannot be excluded. 2. Pocket of subcutaneous soft tissue gas also demonstrated anterior to the patella likely representi ng residual sequelae of postsurgical change. Recommend correlation with clinical exam. 3. Left knee prosthesis demonstrated without definite evidence of hardware failure. Reviewed by: Winston Tom MD on 10/22/2021 10:23 PM PDT Approved by: Winston Tom MD on 10/22/2021 10:23 PM PDT Station ID: [id number]
--- NOTE | 2021-10-22 23:32 | ED Physician Documentation ---
PD HPI LOWER EXT INJURY - Stated complaint Stated Complaint: LT KNEE BLEEDING - Chief complaint Chief Complaint: Ext Problem - Additional information Additional information: Patient with a history significant for left knee revision today at [facility] by Dr. Perales presenting for evaluation of bleeding from his wound. He was discharged from [facility] late this evening and upon returning home he was walking to a chair when he felt a vicente of blood down his leg and soaking his dressing. They called the on-call doctor who recommended he come to the emergency department. He is not taking a blood thinner. He did have a spinal and was not able to urinate after waking up from surgery. He does feel the urge to urinate. Review of Systems Constitutional: denies: Fever Nose: denies: Congestion Cardiac: denies: Chest pain / pressure, Palpitations Respiratory: denies: Dyspnea GI: denies: Abdominal Pain : reports: Unable to Void Skin: reports: Laceration (s) (Bleeding) Musculoskeletal: denies: Back pain Neurologic: denies: Syncope, Head injury PD PAST MEDICAL HISTORY - Past Medical History Cardiovascular: Hypertension, High cholesterol Respiratory: Sleep apnea, CPAP use Neuro: None Endocrine/Autoimmune: HyPOthyroidism GI: GERD : Benign prostate hypertrophy HEENT: Chronic vision loss, Chronic hearing loss Psych: None Musculoskeletal: Osteoarthritis Derm: None - Past Surgical History Past Surgical History: Yes General: Colonoscopy Ortho: Knee replacement, Rotator cuff repair - Present Medications Home Medications: Ambulatory Orders Medication Instructions Recorded Confirmed Tamsulosin [Flomax] 0.4 mg PO DAILY 01/24/13 10/13/20 Atorvastatin Calcium 20 mg PO DAILY 04/07/17 10/13/20 Fluticasone Propionate [Flovent 1 spray NS BID 04/07/17 10/13/20 Diskus] Multivitamin [Multiple Vitamins] 1 each PO DAILY 03/20/19 10/13/20 Melatonin 5 mg PO QPM PRN 03/21/19 10/13/20 polyethylene glycoL 3350 [Miralax] 17 gm PO DAILY 03/21/19 10/06/20 Levothyroxine [Synthroid] 125 mcg PO DAILY 07/20/20 10/13/20 Omeprazole 20 mg PO BID 07/20/20 10/13/20 Cyanocobalamin (Vitamin B-12) 1,000 mcg PO DAILY 10/06/20 10/13/20 [Vitamin B-12] Glucos Sul 2Kcl/MSM/Chond/C/Mn 1 each PO DAILY 10/06/20 10/13/20 [Glucosamine Chondroitin Cap] Mag Carb/Al Hydrox/Alginic AC 5 ml PO PRN PRN 10/06/20 10/06/20 [Gaviscon Extra Strength Liquid] - Allergies Allergies/Adverse Reactions: Allergies Allergy/AdvReac Type Severity Reaction Status Date / Time No Known Drug Allergies Allergy Verified 10/22/21 21:15 - Social History Does the pt smoke?: No Smoking Status: Never smoker Does the pt drink ETOH?: No Does the pt have substance abuse?: No - Immunizations Immunizations are current?: Yes - POLST Patient has POLST: No POLST Status: Full Code PD ED PE NORMAL - General General: Alert and oriented X 3, No acute distress, Well developed/nourished - HEENT HEENT: Atraumatic, Moist mucous membranes - Neck Neck: Supple, no meningeal sign - Cardiac Cardiac: RRR, No murmur, Strong equal pulses - Respiratory Respiratory: No respiratory distress, Clear bilaterally - Abdomen Abdomen: Normal bowel sounds, Soft, Non tender, Non distended - Extremities Extremities: Other (Large incision overlying left knee, closed with skin glue, active bleeding from a small gape in wound at Distal segment; Distal pulses intact) - Neuro Neuro: Alert and oriented X 3, Normal speech - Psych Psych: Normal mood, Normal affect Results - Vitals Vitals: Vital Signs - 24 hr 10/22/21 10/22/21 10/22/21 21:12 21:15 22:20 Temperature 36.2 C L 36.5 C Heart Rate 60 60 Respiratory 18 18 17 Rate Blood Pressure 148/75 H 148/75 H O2 Saturation 98 98 10/22/21 10/23/21 10/23/21 22:59 00:54 01:27 Temperature 36.4 C L Heart Rate 52 L 58 L Respiratory 16 16 16 Rate Blood Pressure 113/69 120/68 O2 Saturation 96 98 Oxygen O2 Source Room air Procedures - Laceration (location) L knee Length in cm: 1 (Gape in large surgical wound) Wound type: Linear Neurovascular status: Sensory intact, Motor intact, Vascular intact Anesthesia: Marcaine 0.5% Wound preparation: Betadine Skin layer closure: Interrupted, Size #-0 - enter number (4), Sutures - enter # (3) Other: Patient tolerated well, Dressing applied PD MEDICAL DECISION MAKING - ED course Complexity details: d/w patient, d/w family ED course: 2236 D/ Dr. 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 Perales. Agrees with plan for simple interrupted sutures to open portion of wound and applying a compression dressing. No Bleeding since stitches placed. Patient was able to ambulate, no further bleeding noted Departure - Departure Disposition: Home, Self Care Clinical Impression: Postoperative bleeding from incision Condition: Stable Instructions: Incision Care Comments: You were seen today for bleeding from your knee surgery wound. 3 stitches were placed. Please keep the dressing on and follow-up with your orthopedic surgeon. Please return to the emergency department if you notice any further bleeding, have worsening pain or have any concerns. Discharge Date/Time: 10/23/21 01:27
[2021-10-23 00:56] VITALS: BP 120/68
== END 2021-10-23 01:27 | disposition home or self-care (01) ==
LOC: ED 20:59
DX: L76.22 Postprocedural hemorrhage of skin and subcutaneous tissue following other procedure (principal); Y83.8 Other surgical procedures as the cause of abnormal reaction of the patient, or of later complication, without mention of misadventure at the time of the procedure; Y79.8 Miscellaneous orthopedic devices associated with adverse incidents, not elsewhere classified
CPT/HCPCS: 12001; 99283

== ENCOUNTER 2021-10-23 15:00 | Outpatient (CLI) | payer MEDICARE, OTHER | END 2021-10-23 15:01 | disposition short-term general hospital (02) | LOC: EMS 15:00 | DX: R55 Syncope and collapse (principal); R42 Dizziness and giddiness; I95.9 Hypotension, unspecified | CPT/HCPCS: A0425; A0427 ==

== ENCOUNTER 2022-01-05 14:09 | Outpatient (CLI) | payer MEDICARE, OTHER ==
--- NOTE | 2022-01-05 14:47 | XRAY Report ---
PROCEDURE: Hip w/Pelvis 2-3V RT INDICATIONS: Fall 5 days ago with RIGHT HIP PAIN TECHNIQUE: AP pelvis with lateral view(s) of the right hip(s). COMPARISON: None. FINDINGS: Bones: No fractures or dislocations. Right worse than left bilateral hip joint osteoarthritis is see n. No evidence of avascular necrosis of femoral head. Pelvic ring appears intact. No suspicious bony lesions. Degenerative disc disease in visualized lower lumbar spine is seen. Soft tissues: The visualized bowel gas pattern is normal. No suspicious soft tissue calcifications. IMPRESSION: No right hip fracture or dislocation. Right worse than left bilateral hip joint osteoarth ritis. No evidence of avascular necrosis. Degenerative disc disease in lower lumbar spine. Reviewed by: Liang William MD on 01/05/2022 2:46 PM PDT Approved by: Liang William MD on 01/05/2022 2:46 PM PDT Station ID: [id number]
== END 2022-01-05 23:59 | disposition home or self-care (01) ==
LOC: DI.S 14:09
PROVIDERS: ATTEND Physician Assistant Medical
DX: M16.0 Bilateral primary osteoarthritis of hip (principal); M51.36 Other intervertebral disc degeneration, lumbar region

== ENCOUNTER 2022-10-27 11:25 | Outpatient (CLI) | payer MEDICARE, OTHER ==
[2022-10-27 14:50] LABS: BASOPHILS # (AUTO) 0.1 10^3/uL (0.0-0.1); EOSINOPHILS # (AUTO) 0.1 10^3/uL (0.0-0.7); EOSINOPHILS % (AUTO) 1.8 %; HGB - HEMOGLOBIN 15.2 g/dL (14.0-18.0); LYMPHOCYTES % (AUTO) 19.6 %; MEAN CORPUSCULAR HEMOGLOBIN 32.2 pg (27.0-31.0); MEAN CORPUSCULAR HGB CONC 31.7 g/dL (32.0-36.0); MEAN CORPUSCULAR VOLUME 101.7 fL (80.0-94.0); MEAN PLATELET VOLUME 9.3 fL (7.4-11.4); MONOCYTES # (AUTO) 0.4 10^3/uL (0.0-1.0); MONOCYTES % (AUTO) 7.9 %; NEUTROPHILS # (AUTO) 3.5 10^3/uL (1.5-6.6); NEUTROPHILS % (AUTO) 69.1 %; PLT - PLATELET COUNT 212 10^3/uL (130-450); RED BLOOD COUNT 4.72 10^6/uL (4.70-6.10); RED CELL DISTRIBUTION WIDTH 13.3 % (12.0-15.0); WHITE BLOOD COUNT 5.1 x10^3/uL (4.8-10.8)
[2022-10-27 15:25] LABS: ALBUMIN/GLOBULIN RATIO 1.5 (1.0-2.2); ALKALINE PHOSPHATASE 64 IU/L (42-121); ALT ALANINE AMINOTRANSFERASE 25 IU/L (10-60); AST ASPARTATE AMINOTRANSFERASE 22 IU/L (10-42); BILIRUBIN,TOTAL 0.7 mg/dL (0.2-1.0); BUN - BLOOD UREA NITROGEN 22 mg/dL (6-20); CALCIUM 9.1 mg/dL (8.5-10.3); CARBON DIOXIDE - CO2 30 mmol/L (21-32); CHLORIDE 102 mmol/L (101-111); CHOLESTEROL 163 mg/dL; GFR - MDRD 72 (>89); GLUCOSE 93 mg/dL (70-100); HDL CHOLESTEROL 83 mg/dL; LDL CHOLESTEROL,CALCULATED 69 mg/dL; LDL/HDL RATIO 0.8 (<3.6); POTASSIUM 4.2 mmol/L (3.5-5.0); SODIUM 135 mmol/L (135-145); TOTAL PROTEIN 6.6 g/dL (6.7-8.2); TRIGLYCERIDES 53 mg/dL; VLDL CHOLESTEROL 11 mg/dL
[2022-10-27 15:33] LABS: THYROID STIMULATING HORMONE 9.52 uIU/mL (0.34-5.60)
[2022-10-27 16:11] LABS: FREE T4 (FREE THYROXINE) 0.98 ng/dL (0.58-1.64)
== END 2022-10-27 11:26 | disposition home or self-care (01) ==
LOC: LAB.S 11:25
PROVIDERS: ATTEND Registered Nurse
DX: E78.00 Pure hypercholesterolemia, unspecified (principal); K31.89 Other diseases of stomach and duodenum; E03.9 Hypothyroidism, unspecified
CPT/HCPCS: 36415; 80053; 80061; 83721; 84439; 84443; 85025

== ENCOUNTER 2022-12-02 11:39 | Outpatient (CLI) | payer MEDICARE, OTHER ==
[2022-12-02 14:57] LABS: THYROID STIMULATING HORMONE 4.52 uIU/mL (0.34-5.60)
== END 2022-12-02 11:40 | disposition home or self-care (01) ==
LOC: LAB.S 11:39
PROVIDERS: ATTEND Registered Nurse
DX: E03.9 Hypothyroidism, unspecified (principal)
CPT/HCPCS: 36415; 84443

== ENCOUNTER 2023-11-02 10:28 | Outpatient (CLI) | payer MEDICARE, OTHER ==
[2023-11-02 14:22] LABS: BASOPHILS % (AUTO) 0.8 %; EOSINOPHILS # (AUTO) 0.1 10^3/uL (0.0-0.7); EOSINOPHILS % (AUTO) 1.9 %; HCT - HEMATOCRIT 46.8 % (42.0-52.0); HGB - HEMOGLOBIN 14.5 g/dL (14.0-18.0); LYMPHOCYTES % (AUTO) 19.5 %; MEAN CORPUSCULAR HEMOGLOBIN 31.7 pg (27.0-31.0); MEAN CORPUSCULAR VOLUME 102.2 fL (80.0-94.0); MEAN PLATELET VOLUME 9.3 fL (7.4-11.4); MONOCYTES # (AUTO) 0.5 10^3/uL (0.0-1.0); MONOCYTES % (AUTO) 8.9 %; NEUTROPHILS # (AUTO) 3.6 10^3/uL (1.5-6.6); NEUTROPHILS % (AUTO) 68.3 %; PLT - PLATELET COUNT 236 10^3/uL (130-450); RED BLOOD COUNT 4.58 10^6/uL (4.70-6.10); RED CELL DISTRIBUTION WIDTH 13.8 % (12.0-15.0); WHITE BLOOD COUNT 5.2 x10^3/uL (4.8-10.8)
[2023-11-02 14:47] LABS: ALBUMIN 4.2 g/dL (3.2-5.5); ALBUMIN/GLOBULIN RATIO 1.9 (1.0-2.2); ALKALINE PHOSPHATASE 64 IU/L (42-121); ALT ALANINE AMINOTRANSFERASE 16 IU/L (10-60); AST ASPARTATE AMINOTRANSFERASE 18 IU/L (10-42); BILIRUBIN,TOTAL 0.8 mg/dL (0.2-1.0); BUN - BLOOD UREA NITROGEN 20 mg/dL (6-20); CALCIUM 9.9 mg/dL (8.5-10.3); CARBON DIOXIDE - CO2 30 mmol/L (21-32); CHLORIDE 101 mmol/L (101-111); CHOL/HDL RATIO 2.3 (<5.0); CHOLESTEROL 190 mg/dL; GFR - MDRD 71 (>89); GLUCOSE 91 mg/dL (74-104); HDL CHOLESTEROL 83 mg/dL; LDL CHOLESTEROL,CALCULATED 92 mg/dL; LDL/HDL RATIO 1.1 (<3.6); POTASSIUM 4.3 mmol/L (3.5-4.5); SODIUM 136 mmol/L (135-145); TOTAL PROTEIN 6.4 g/dL (6.4-8.9); TRIGLYCERIDES 73 mg/dL (48-352); VLDL CHOLESTEROL 15 mg/dL
[2023-11-02 14:53] LABS: THYROID STIMULATING HORMONE 6.33 uIU/mL (0.34-5.60)
== END 2023-11-02 10:29 | disposition home or self-care (01) ==
LOC: LAB.S 10:28
PROVIDERS: ATTEND Registered Nurse
DX: Z12.5 Encounter for screening for malignant neoplasm of prostate (principal); Z13.228 Encounter for screening for other metabolic disorders; Z13.220 Encounter for screening for lipoid disorders; Z13.29 Encounter for screening for other suspected endocrine disorder; Z13.0 Encounter for screening for diseases of the blood and blood-forming organs and certain disorders involving the immune mechanism
CPT/HCPCS: 36415; 80053; 80061; 84439; 84443; 85025; G0103; 83721; 84153

== ENCOUNTER 2023-12-26 10:15 | Outpatient (CLI) | payer MEDICARE, OTHER ==
[2023-12-26 16:01] LABS: THYROID STIMULATING HORMONE 1.25 uIU/mL (0.34-5.60)
== END 2023-12-26 10:16 | disposition home or self-care (01) ==
LOC: LAB.S 10:15
PROVIDERS: ATTEND Registered Nurse
DX: E03.9 Hypothyroidism, unspecified (principal)
CPT/HCPCS: 36415; 84443